=== PATIENT | female | born 1935 | race Caucasian/White ===

== ENCOUNTER 2018-06-09 18:49 | Inpatient (IN) | payer OTHER ==
[2018-06-09 20:45] VITALS: BMI 27.3
[2018-06-09 21:12] LABS: Absolute Lymphocytes (CBC) 1.5 K/uL (0.7-4.9); Absolute Monocytes 0.6 K/uL (0.1-1.3); Absolute Neutrophil 4.7 K/uL (1.8-8.0); Basophils % 0.7 % (0-1.3); Eosinophils % 3.8 % (0-4.4); Hematocrit 35.6 % (36.0-45.0); Lymphocytes % 21.1 % (15.3-44.8); MCH 31.7 pg (27.0-35.0); MCV 92.9 fL (80-100); MPV 9.6 fL (7.6-11.3); RBC Red Blood Cell Count 3.83 M/uL (3.86-4.86)
[2018-06-09 21:19] LABS: Protime INR 0.98
[2018-06-09 21:39] LABS: Albumin 3.3 g/dL (3.4-5.0); Bilirubin Total 0.2 mg/dL (0.2-1.0); CKMB Creatine Kinase MB 2.7 ng/mL (0.3-3.6); Magnesium 2.3 mg/dL (1.8-2.4); Protein, Total 6.6 g/dL (6.4-8.2)
[2018-06-09] MEDS: ENOXAPARIN 80 MG/0.8 ML SQ SCH (22:31)
[2018-06-09] MEDS: clonazePAM 1 MG TAB PO SCH (22:32)
[2018-06-09] MEDS: SOTALOL HCL 80 MG TAB PO SCH (22:32)
[2018-06-09 23:16] LABS: Urine Appearance CLEAR; Urine Bilirubin NEGATIVE (NEG); Urine Blood NEGATIVE (NEG); Urine Color YELLOW; Urine Glucose NEGATIVE (NEG); Urine Protein NEGATIVE (NEG); Urine Urobilinogen 0.2 mg/dL (0.2-1.0)
[2018-06-09 23:33] LABS: Urine Bacteria <20 /HPF (<20); Urine RBC NONE SEEN /HPF (NONE SEEN)
[2018-06-09 23:34] LABS: Urine Culture Reflex Order NOT NEEDED
--- NOTE | 2018-06-10 06:37 | HP ---
Date of Admission: 06/09/2018 Chief Complaint: Not feeling good. History Of Present Illness: An 83-year-old female patient who came into see me today with concerns a bout her blood pressure. The patient says for last 10 days or so she has not been feeling good at al l and she was concerned about her blood pressure if it was running high or low, she did know. She sargent d somebody checked her blood pressure at one of the [facility] care facility and her systolic blood pre ssure was recorded as 205. This was almost a week ago or so and then she was told that particular bl ood pressure machine was not working well. After that, she says that she has used different machines and her blood pressure was sometime running low with systolic blood pressure around 90 or so and gosia etime it was high, so she did not know what to do. She came in today to see me. She has been feelin g weak lately in last week to 10 days. Denies any chest pain. No shortness of breath. No palpitati on. No nausea, vomiting, fever, chills. After I evaluated her, I detected her heart rate was irregu larly irregular and EKG was done which revealed presence of atrial fibrillation with rapid ventricula r rate and decision was made to admit her to hospital for further evaluation and management of this p roblem. The patient does not have any prior history of atrial fibrillation. Allergies: NO KNOWN ALLERGIES. Medications: Caltrate plus D 1 tablet 2 times a day, carvedilol 25 mg 2 times a day, Centrum Silver 1 tablet daily, clonazepam 1 mg b.i.d., duloxetine 30 mg daily, gabapentin 100 mg 3 times a day, hydr alazine 10 mg p.o. b.i.d., Boniva 150 mg once a month, losartan 100 mg daily, oxybutynin ER 10 mg lu ly, potassium [id number] 99 mg p.o. daily. Review of Systems: Cardiovascular: As mentioned above. All other systems reviewed and negative. Social History: Negative for smoking, alcohol use. Family History: Significant for prostate cancer, colon cancer, breast cancer, COPD. Past Surgical History: Elbow surgery, hysterectomy, and bladder surgery. Past Medical History: Significant for hypertension, overactive bladder, depression, hyperlipidemia, and generalized anxiety disorder. Physical Examination: Vital Signs: Height 5 feet and 5 inches, weight 164 pounds. Temperature 97.9, pulse 103, respirator y rate 16, blood pressure 148/114, oxygen saturation 96%. General: Awake, alert, oriented, not in distress. HEENT: Head atraumatic, normocephalic. Conjunctivae nonerythematous. Sclerae white. Mouth, no thr ush or edema noted. Ears/Nose, no mass, lesion, discharge noted. Neck: Supple. No JVD, lymph nodes, bruit, thyromegaly noted. Lungs: Bilateral good equal air entry. Clear to auscultation. No rhonchi. No rales. Heart: Sounds normal. Heart rhythm is irregularly irregular. Abdomen: Soft, bowel sounds normal. No guarding, rigidity, tenderness, mass, hepatosplenomegaly, dis tention, or bruit noted. Extremities: No leg edema. No calf tenderness. Skin: No rash, ulcer, cellulitis. Lymphatics: No lymph node enlargement in neck, supraclavicular, infraclavicular region. Neuro: No focal neurological deficit. Chest: Unremarkable. External Genitalia: Deferred. Rectal: Deferred. Laboratory Data: White count 7.2, hemoglobin 12.1, platelets 210. PT/PTT normal. Chemistry is pend ing. Cardiac enzymes pending. Impression: 1.Atrial fibrillation with rapid ventricular rate. 2.Hypertension. 3.Hyperlipidemia. 4.Generalized anxiety disorder. 5.Overactive bladder. 6.Depression. Plan: Admit the patient to hospital for further evaluation and management of this problem. The marcellus ent is appropriate for inpatient and is expected to spend 2 midnights in hospital. We will admit her to telemetry. Continue home medication per order for hypertension, overactive bladder, depression a nd anxiety problem. We will not give her carvedilol that she normally takes at home and instead of t hat we will start her on sotalol 80 mg p.o. twice a day. We will also start her on Lovenox 1 mg/kg s ubcutaneous injection every 12 hours in view of atrial fibrillation. Details and plan of treatment d iscussed with her. We will get echocardiogram and consult Cardiology. I did discuss details with he r motor block mechanic, Dr. Wang. I will see her in the morning for followup. CITLALY/MODL Voice ID: [id number]
--- NOTE | 2018-06-10 07:05 | RAD REPORT ---
EXAM DESCRIPTION: RAD - Chest Pa And Lat (2 Views) - 06/09/2018 9:21 pm CLINICAL HISTORY: Atrial fibrillation COMPARISON: Portable chest March 2017 TECHNIQUE: PA and lateral views of the chest were obtained. FINDINGS: The lungs are clear. Interstitial markings are similar to comparison. Minimal biapical pl eural thickening changes are present. Heart size and lung base markings are accentuated slightly by a more shallow inspiration. No pleural effusion or pneumothorax seen. No acute bony finding noted. N o aortic abnormality. IMPRESSION: No acute cardiopulmonary process. As detailed above, no significant change from compari son.
[2018-06-10] MEDS: SOTALOL HCL 80 MG TAB PO SCH ×2 (08:47→20:30)
[2018-06-10] MEDS: HYDRALAZINE HCL 10 MG TABLET PO SCH ×2 (08:47→20:31)
[2018-06-10] MEDS: ENOXAPARIN 80 MG/0.8 ML SQ SCH ×2 (08:47→20:31)
[2018-06-10] MEDS: clonazePAM 1 MG TAB PO SCH ×2 (08:47→20:30)
[2018-06-10] MEDS: DULOXETINE 30 MG CAP PO SCH (08:47)
[2018-06-10] MEDS: OXYBUTYNIN ER 5 MG TAB PO SCH (08:47)
[2018-06-10] MEDS: LOSARTAN POTASSIUM 50 MG TABLET PO SCH (08:47)
--- NOTE | 2018-06-10 10:29 | EKG ---
Test Date: 2018-06-10 Test Time: 03:38:07 [place]rap [place]er: RT-V MEASUREMENT RESULTS: Intervals: Rate: 67 ME: 202 QRSD: 116 QT: 436 QTc: 460 [place]: P: 64 ME: 202 QRS: -26 T: 11 INTERPRETIVE STATEMENTS: Normal sinus rhythm Incomplete left bundle branch block Borderline ECG Compared to ECG 09/21/2015 09:50:58 Left bundle-branch block now present Electronically Signed On 06-10-18 10:28:05 CDT by Daniele Cassidy
--- NOTE | 2018-06-10 11:52 | ECHO ---
HEIGHT: 5 ft 5 in WEIGHT: 164 lb 6.4 oz DATE OF STUDY: 06/10/[address]: Maxi Duval MD 2-DIMENSIONAL: YES M.MODE: YES DOPPLER: YES COLOR FLOW: YES TDS: NO PORTABLE: NO DEFINITY: NO BUBBLE STUDY: NO DIAGNOSIS: ATRIAL FIBRILLATION CARDIAC HISTORY: CATHERIZATION: NO SURGERY: NO PROSTHETIC VALVE: NO PACEMAKER: NO MEASUREMENTS (cm) DIASTOLIC (NORMALS) SYSTOLIC (NORMALS) IVSd 1.1 (0.6-1.2) LA Diam 3.6 (1.9-4.0) LVEF 69% LVIDd 4.7 (3.5-5.7) LVIDs 2.9 (2.0-3.5) %FS 39% LVPWd 1.1 (0.6-1.2) Ao Diam 3.1 (2.0-3.7) 2 DIMENSIONAL ASSESSMENT: RIGHT ATRIUM: NORMAL LEFT ATRIUM: NORMAL RIGHT VENTRICLE: NORMAL LEFT VENTRICLE: NORMAL TRICUSPID VALVE: NORMAL MITRAL VALVE: NORMAL PULMONIC VALVE: NORMAL AORTIC VALVE: NORMAL PERICARDIAL EFFUSION: NONE AORTIC ROOT: NORMAL LEFT VENTRICULAR WALL MOTION: NORMAL DOPPLER/COLOR FLOW: MILD TRICUSPID REGURGITATION. COMMENTS: MILD TRICUSPID REGURGITATION. NORMAL RIGHT VENTRICULAR SYSTOLIC PRESSURE. NORMAL LEFT ATRIAL SIZE, NO THROMBUS. NORMAL LEFT VENTRICULAR SIZE AND FUNCTION. TECHNOLOGIST: Doreen RIVAS
--- NOTE | 2018-06-10 15:27 | CON ---
Reason For Consult: Atrial fibrillation. History Of Present Illness: Ms. Mcghee was aware of an irregular heartbeat for several weeks. She saw Dr. Duval yesterday. She was in AFib. Since being in the hospital, she has re-establised sinus r hythm. She has no previous history of heart disease. She takes blood pressure medicines. Never had myocardial infarction, stroke, or diabetes. Allergies: SHE HAS NO KNOWN ALLERGIES. Social History: Does not use tobacco or illegal drugs. Not having chest pain, just a little bit of irregularity. Physical Examination: General: She is 5 feet 5 inches, 164 pounds. Alert, oriented, pleasant, not in distress. Lungs: Clear. Cardiac: Normal. Abdomen: Soft. Extremities: Normal.. I would recommend that the patient have an outpatient workup. She should probably do a stress test a nd she should be on Betapace and one of the direct anticoagulants such as Xarelto. We could stop the Lovenox. We can let her go home today and see her as an outpatient. She is a regular patient of Dr Chance Wang in the past. ARAMIS/KANE Voice ID: [id number] Report ID: [id number]
--- NOTE | 2018-06-10 22:30 | PN ---
Date of Progress Note: 06/10/2018 Subjective: The patient was seen this morning for followup, lying in bed, not in any distress. No chest pain or shortness of breath overnight. Objective: Vital Signs: Reviewed. HEENT: Unremarkable. Lungs: Clear to auscultation. Heart: Heart sounds normal. Abdomen: Soft. Bowel sounds normal. No guarding, rigidity, tenderness, or distention. Extremities: No leg edema. Laboratory Data: Yesterday's chemistry profile; sodium 144, potassium 4, chloride 110, bicarb 29, BUN 20, creatinine 0.80, glucose 96. Liver function tests are unremarkable. TSH 1.0. Echocardiogram done today shows ejection fraction of 69%, mild tricuspid regurgitation. Impression: 1. Atrial fibrillation, paroxysmal, converted to sinus rhythm. 2. Hypertension. Plan: We will go ahead and continue sotalol and continue anticoagulant therapy. Monitor for any cardiac arrhythmia or any medication side effect on telemetry. Ambulation was encouraged. I will see her tomorrow for followup and we will plan to discharge her to go home tomorrow if her condition is stable. CITLALY/MODL Voice ID: [id number] Report ID: [id number] TRI
[2018-06-11 04:17] VITALS: O2SAT 95
[2018-06-11] MEDS: clonazePAM 1 MG TAB PO SCH (08:57)
[2018-06-11] MEDS: DULOXETINE 30 MG CAP PO SCH (08:57)
[2018-06-11] MEDS: SOTALOL HCL 80 MG TAB PO SCH (08:57)
[2018-06-11] MEDS: HYDRALAZINE HCL 10 MG TABLET PO SCH (08:57)
[2018-06-11] MEDS: OXYBUTYNIN ER 5 MG TAB PO SCH (08:58)
[2018-06-11] MEDS: LOSARTAN POTASSIUM 50 MG TABLET PO SCH (08:58)
[2018-06-11 09:14] VITALS: BP 169/90; TEMP 97.4
--- NOTE | 2018-06-12 01:27 | DS ---
Date of Discharge: 06/11/2018 Disposition: Discharged to go home. Physical Examination: HEENT: Unremarkable. Lungs: Clear to auscultation. Heart: Sounds normal. Abdomen: Soft. Bowel sounds normal. No guarding, rigidity, tenderness, or distention. Extremities: No leg edema. Discharge Medications And Instructions: 1.Continue all prior home medications except discontinue carvedilol. 2.Take sotalol 80 mg 2 times a day. 3.Xarelto 20 mg p.o. daily with evening meal. 4.Follow up at my office in 1 week and follow up with Dr. Wang in 2 weeks. Laboratory Data: White count 7.2, hemoglobin 12.1, platelets 210, sodium 144, potassium 4, chloride 110, bicarb 29, BUN 20, creatinine 0.80, glucose 96. Liver function tests unremarkable. Troponin le ss than 0.02. TSH 1. Echocardiogram shows normal ejection fraction, 69%. No evidence of left ventr icular thrombus. Hospital Course: An 83-year-old female patient, admitted to the hospital after she came into office with complaints of not feeling good. Please see dictated H and P for more information. The patient' s blood pressure has been fluctuating lately and she came in to see me. After she was evaluated at [facility] office, she was diagnosed as having atrial fibrillation with rapid ventricular rate. EKG done at office showed atrial fibrillation with heart rate anywhere from 115 to 120. She was hemodynamically stable. After she was evaluated, she was admitted to the hospital. Her blood work was unremarkable. She was started on sotalol 80 mg twice a day and Lovenox 1 mg/kg subcutaneous injection every 12 ho urs. She did convert to sinus rhythm with sotalol. She was on telemetry. She ambulated well. Tole rating diet very well. Cardiology consultation was requested and echocardiogram was unremarkable. [facility] patient was discharged to go home in stable condition. She was instructed about how to take the X arelto with evening meal. Patient upon discharge came to office, and written instructions about her medication changes were given to her and prescription was sent to her pharmacy. Final Diagnoses: 1.Atrial fibrillation, paroxysmal, converted to sinus rhythm with sotalol. 2.Hypertension. 3.Hyperlipidemia. 4.Generalized anxiety disorder. 5.Overactive bladder. 6.Depression. CITLALY/MODL Voice ID: [id number] Report ID: [id number]
== END 2018-06-11 09:23 | disposition home or self-care (01) | DRG 310 ==
LOC: 4TH 19:20
PROVIDERS: ADMIT Internal Medicine; ATTEND Internal Medicine
DX: I48.0 Paroxysmal atrial fibrillation (principal); I10 Essential (primary) hypertension; E78.5 Hyperlipidemia, unspecified; F41.1 Generalized anxiety disorder; N32.81 Overactive bladder; F32.9 Major depressive disorder, single episode, unspecified
CPT/HCPCS: 36415; 71046; 80053; 81001; 82550; 82553; 83735; 84443; 84484; 85025; 85610; 85730; 93005; 93306; J1650

== ENCOUNTER 2018-06-14 06:32 | Emergency (ER) | payer OTHER ==
--- NOTE | 2018-06-14 07:27 | RAD REPORT ---
EXAM DESCRIPTION: CT - Head C Spine Cap Wo Con - 06/14/2018 7:05 am CLINICAL HISTORY: Fall, head, neck, chest and abdomen pain. COMPARISON: Chest exam June 2016. TECHNIQUE: Axial [address] head images were obtained. Axial [address] cervical spine images were obtain ed with sagittal and coronal reconstruction images reviewed. Axial 5 mm images of the chest, abdomen and pelvis were obtained. All CT scans are performed using dose optimization technique as appropriate and may include automated exposure control or mA/KV adjustment according to patient size. FINDINGS: No intracranial hemorrhage, mass or edema. No midline shift or abnormal fluid collection. Mastoid air cells and paranasal sinuses are clear. No skull fracture. Moderate atrophy and chronic is chemic changes are present. Ventricular size is in proportion. Cervical bodies are normal in height. Anterior subluxation C3 on C4 and C4 on C5 present an secondary to facet degenerative change. Prominent C6-7 disc space narrowing with endplate spurring. Mild right foraminal encroachment at C2-3. Significant left foraminal encroachment C3-4 due to bony hypertrophy . Mild left foraminal encroachment at C5-6. There is mild bilateral foraminal encroachment at C6-7. N o fracture or acute bone finding.No other disc space narrowing.No prevertebral soft tissue thickening or paraspinal mass.Central canal detail is inherently limited on CT imaging. CT chest shows no pneumothorax, pulmonary contusion or pleural fluid collection. No mediastinal hem atoma and the aorta and pulmonary arteries are unremarkable. No chest will mass or abnormal axillary finding. No displaced rib fracture or other significant bony finding. CT abdomen and pelvis show no injury to solid abdominal viscera. Small low-density lesions in the zoë er are believed to be incidental cysts but are not fully assessed on a noncontrast study. Gallbladder and biliary tree are unremarkable. Gallstones can be occult on CT imaging. No evidence for an acute gallbladder process. Mild dilatation of the right pelvis and proximal ureter present without evidence for an obstructing stone. An acute process is doubtful given the trauma history. An exophytic 15 mil limeter low-density mass right kidney is probably a cyst. No bowel injury or significant finding. No free air, free fluid or abnormal stranding. No hernia, mass or bulky lymphadenopathy. No urinary lenka dder abnormality. Patient has prominent disc and bony degenerative change. The 40% compression fracture deformity L1 is a stable finding. An acute or pathologic bone process is not suspected. IMPRESSION: Atrophy and chronic ischemic changes are present with no acute intracranial finding. Cervical spine degenerative changes are present as detailed. No acute finding. Central canal detail i s inherently limited. No acute CT chest finding. Multiple old rib fractures noted on the right. No significant CT Abdomen and Pelvis finding. Old L1 compression fracture. Degenerative changes are scattered in the thoracic and lumbar spine. Overall exam sensitivity is limited in the absence of contrast. No significant acute finding suspecte d.
[2018-06-14] MEDS ORDERED: NA CHLORIDE 0.9% 1,000 ML ONE (07:44)
[2018-06-14 08:01] LABS: Absolute Lymphocytes (CBC) 1.3 K/uL (0.7-4.9); Absolute Monocytes 0.6 K/uL (0.1-1.3); Absolute Neutrophil 5.2 K/uL (1.8-8.0); Basophils % 0.7 % (0-1.3); Eosinophils % 3.7 % (0-4.4); Hematocrit 38.1 % (36.0-45.0); Lymphocytes % 17.5 % (15.3-44.8); MCH 31.3 pg (27.0-35.0); MCV 93.2 fL (80-100); MPV 9.6 fL (7.6-11.3); Monocytes % 7.6 % (3.3-12.3); RBC Red Blood Cell Count 4.09 M/uL (3.86-4.86)
[2018-06-14 08:10] LABS: Protime INR 2.08
[2018-06-14 08:14] LABS: Potassium 3.8 mmol/L (3.5-5.1)
[2018-06-14 08:20] LABS: ALT/SGPT 37 U/L (12-78); AST/SGOT 27 U/L (15-37); Albumin 3.5 g/dL (3.4-5.0); Alkaline Phosphatase 63 U/L (45-117); Bilirubin Direct < 0.1 mg/dL (0-0.2); Bilirubin Total 0.5 mg/dL (0.2-1.0); CKMB Creatine Kinase MB 2.3 ng/mL (0.3-3.6); Creatine Phosphokinase 66 U/L (26-192); Magnesium 2.2 mg/dL (1.8-2.4); NT PRO-BNP 389 pg/mL (<450)
[2018-06-14 08:36] LABS: Urine Blood NEGATIVE (NEG); Urine Glucose NEGATIVE (NEG); Urine Protein NEGATIVE (NEG); Urine Specific Gravity 1.015 (1.005-1.030); Urine pH 6.5 (5.0-7.0)
--- NOTE | 2018-06-14 08:46 | EDPHYS ---
Physician Documentation [facility] Name: Juanita Mcghee Age: 83 yrs Sex: Female : 1935 Arrival Date: 06/14/2018 Time: 06:36 Bed 5 Private MD: Yvette Duval C ED Physician David Soto HPI: 06/14 06:40 This 83 yrs old Female presents to ER via Unassigned with complaints of Fall kav Injury. 06:42 Details of fall: The patient fell from a supine position, out of bed, and struck wood kav erik. Onset: The symptoms/episode began/occurred acutely, just prior to arrival. Associated injuries: The patient sustained injury to the head, tenderness. Severity of symptoms: At their worst the symptoms were mild, just prior to arrival. The patient has not experienced similar symptoms in the past. The patient has been recently seen by a physician: Dr. Duval. Patient reports that she was recently initiated on Xarelto and Sotalol for Atrial Fibrillation. 07:25 No reported LOC. kav Historical: - Allergies: 06:49 No Known Allergies; fc - Home Meds: 06:49 Centrum Silver 0.4-300-250 mg-mcg-mcg oral tab daily [Active]; gabapentin 100 mg oral fc cap 3 times per day [Active]; Caltrate 600 + D 600 mg (1,500 mg)-800 unit oral chew twice a day [Active]; ibandronate 150 mg oral tab 1 tab once moly [Active]; oxybutynin chloride 10 mg Oral tr24 2 tabs in am and 1 tab at night [Active]; clonazepam 1 mg Oral tab 1 tab 2 times per day [Active]; Potassium Chloride Oral 2 times per day [Active]; hydralazine 10 mg Oral tab 1 tab 2 times per day [Active]; losartan 100 mg oral tab 1 tab once daily [Active]; duloxetine 30 mg oral cpDR 1 cap once daily [Active]; sotalol 80 mg Oral tab 1 tab 2 times per day [Active]; Xarelto 20 mg oral tab 1 tab once daily [Active]; - PMHx: 06:49 Anxiety; Hypertension; neuropathy; Atrial Fib; fc - Immunization history: Last tetanus immunization: - up to date. - Social history:: Smoking status: Patient/guardian denies using tobacco. - Ebola Screening: : Patient negative for fever greater than or equal to 101.5 degrees Fahrenheit, and additional compatible Ebola Virus Disease symptoms Patient denies exposure to infectious person Patient denies travel to an Ebola-affected area in the 21 days before illness onset. - Family history:: not pertinent. - Hospitalizations: : No recent hospitalization is reported. ROS: 07:23 Constitutional: Negative for fever, chills, and weight loss, Eyes: Negative for injury, kav pain, redness, and discharge, ENT: Negative for injury, pain, and discharge, Neck: Negative for injury, pain, and swelling, Cardiovascular: Negative for chest pain, palpitations, and edema, Respiratory: Negative for shortness of breath, cough, wheezing, and pleuritic chest pain, Abdomen/GI: Negative for abdominal pain, nausea, vomiting, diarrhea, and constipation, Back: Negative for injury and pain, : Negative for injury, bleeding, discharge, and swelling, MS/Extremity: Negative for injury and deformity, Skin: Negative for injury, rash, and discoloration, Neuro: Negative for headache, weakness, numbness, tingling, and seizure, Psych: Negative for depression, anxiety, suicide ideation, homicidal ideation, and hallucinations, Allergy/Immunology: Negative for hives, rash, and allergies, Endocrine: Negative for neck swelling, polydipsia, polyuria, polyphagia, and marked weight changes, Hematologic/Lymphatic: Negative for swollen nodes, abnormal bleeding, and unusual bruising. Exam: 07:23 Constitutional: This is a well developed, well nourished patient who is awake, alert, kav and in no acute distress. Eyes: Pupils equal round and reactive to light, extra-ocular motions intact. Lids and lashes normal. Conjunctiva and sclera are non-icteric and not injected. Cornea within normal limits. Periorbital areas with no swelling, redness, or edema. ENT: Nares patent. No nasal discharge, no septal abnormalities noted. Tympanic membranes are normal and external auditory canals are clear. Oropharynx with no redness, swelling, or masses, exudates, or evidence of obstruction, uvula midline. Mucous membranes moist. Neck: Trachea midline, no thyromegaly or masses palpated, and no cervical lymphadenopathy. Supple, full range of motion without nuchal rigidity, or vertebral point tenderness. No Meningismus. Chest/axilla: Normal chest wall appearance and motion. Nontender with no deformity. No lesions are appreciated. Cardiovascular: Regular rate and rhythm with a normal S1 and S2. No gallops, murmurs, or rubs. Normal PMI, no JVD. No pulse deficits. Respiratory: Lungs have equal breath sounds bilaterally, clear to auscultation and percussion. No rales, rhonchi or wheezes noted. No increased work of breathing, no retractions or nasal flaring. Abdomen/GI: Soft, non-tender, with normal bowel sounds. No distension or tympany. No guarding or rebound. No evidence of tenderness throughout. Back: No spinal tenderness. No costovertebral tenderness. Full range of motion. Skin: Warm, dry with normal turgor. Normal color with no rashes, no lesions, and no evidence of cellulitis. MS/ Extremity: Pulses equal, no cyanosis. Neurovascular intact. Full, normal range of motion. Psych: Awake, alert, with orientation to person, place and time. Behavior, mood, and affect are within normal limits. 07:23 Head/face: Noted is tenderness, that is mild, of the left side of the back of head and right side of the back of head. 08:24 ECG was reviewed by the Attending Physician. [facility] Vital Signs: 06:30 BP 166 / 96; Pulse 62; Resp 20; Temp 98.1(O); Pulse Ox 98% on R/A; Weight 72.57 kg (R); fc Height 5 ft. 5 in. (165.10 cm) (R); Pain 0/10; 07:00 BP 153 / 92; Pulse 66; Resp 16 S; Pulse Ox 99% on R/A; jl7 07:45 BP 167 / 77; Pulse 63; Resp 16; Pulse Ox 99% on R/A; jl7 08:23 BP 166 / 90; Pulse 62; Resp 18; Pulse Ox 99% ; Pain 0/10; jl7 09:15 BP 169 / 90; Pulse 62; Resp 16; Pulse Ox 97% on R/A; jl7 06:30 Body Mass Index 26.63 (72.57 kg, 165.10 cm) NIH Stroke Scale Scores: 08:46 NIHSS Score: 0 ka [place] Coma Score: 06:30 Eye Response: spontaneous(4). Verbal Response: oriented(5). Motor Response: obeys fc commands(6). Total: 15. 08:46 Eye Response: spontaneous(4). Verbal Response: oriented(5). Motor Response: obeys kav commands(6). Total: 15. Trauma Score (Adult): 06:30 Eye Response: spontaneous(1); Verbal Response: oriented(1); Motor Response: obeys fc commands(2); Systolic BP: > 89 mm Hg(4); Respiratory Rate: 10 to 29 per min(4); Susana Score: 15; Trauma Score: 12 07:00 Eye Response: spontaneous(1); Verbal Response: oriented(1); Motor Response: obeys jl7 commands(2); Systolic BP: > 89 mm Hg(4); Respiratory Rate: 10 to 29 per min(4); Susana Score: 15; Trauma Score: 12 07:45 Eye Response: spontaneous(1); Verbal Response: oriented(1); Motor Response: obeys jl7 commands(2); Systolic BP: > 89 mm Hg(4); Respiratory Rate: 10 to 29 per min(4); [place] Score: 15; Trauma Score: 12 08:23 Eye Response: spontaneous(1); Verbal Response: oriented(1); Motor Response: obeys jl7 commands(2); Systolic BP: > 89 mm Hg(4); Respiratory Rate: 10 to 29 per min(4); [place] Score: 15; Trauma Score: 12 09:15 Eye Response: spontaneous(1); Verbal Response: oriented(1); Motor Response: obeys jl7 commands(2); Systolic BP: > 89 mm Hg(4); Respiratory Rate: 10 to 29 per min(4); Susana Score: 15; Trauma Score: 12 MDM: 06:36 Medical screening is not applicable. [facility] 08:01 Data reviewed: vital signs, nurses notes, radiologic studies, CT scan. ED course: [facility] awaiting urine results and lab results. 06/14 06:38 Order name: Basic Metabolic Panel; Complete Time: 08:19 [facility] 06/14 06:38 Order name: CBC with Diff; Complete Time: 08:19 [facility] 06/14 06:38 Order name: Creatinine for Radiology; Complete Time: 08:44 [facility] 06/14 06:38 Order name: Type And Screen; Complete Time: 09:24 kav 06/14 06:41 Order name: Ckmb; Complete Time: 08:44 v 06/14 06:41 Order name: CPK; Complete Time: 08:44 v 06/14 06:38 Order name: CT Traumagram (Head C Spine CAP wo con); Complete Time: 07:30 kav 06/14 06:41 Order name: LFT's; Complete Time: 08:44 v 06/14 06:41 Order name: Magnesium; Complete Time: 08:44 v 06/14 06:41 Order name: NT PRO-BNP; Complete Time: 08:44 kav 06/14 06:41 Order name: PT-INR; Complete Time: 08:19 v 06/14 06:41 Order name: Ptt, Activated; Complete Time: 08:19 v 06/14 06:41 Order name: Troponin (emerg Dept Use Only); Complete Time: 08:19 v 06/14 08:22 Order name: Urine Dipstick--Ancillary (enter results); Complete Time: 08:44 eb 06/14 06:38 Order name: Labs collected and sent; Complete Time: 08:14 kav 06/14 06:38 Order name: Urine Dipstick-Ancillary (obtain specimen); Complete Time: 08:20 v 06/14 06:41 Order name: EKG; Complete Time: 06:42 06/14 06:41 Order name: Cardiac monitoring; Complete Time: 08:20 kav 06/14 06:41 Order name: EKG - Nurse/Tech; Complete Time: 08:20 v 06/14 06:41 Order name: IV Saline Lock; Complete Time: 08:13 06/14 06:41 Order name: O2 Per Protocol; Complete Time: 08:13 v 06/14 06:41 Order name: O2 Sat Monitoring; Complete Time: 08:13 kav Administered Medications: 08:14 Drug: NS 0.9% 1000 ml Route: IV; Rate: 75 ml/hr; Site: right antecubital; jl7 09:34 Follow up: IV Status: IV converted to saline lock jl7 Disposition: 06/14/18 08:45 Discharged to Home. Impression: fall from supine position. - Condition is Stable. - Discharge Instructions: Fall Prevention in the Home, [id number], Facial or Scalp Contusion, [id number]. - Medication Reconciliation Form, Thank You Letter form. - Follow up: Yvette Duval; When: 2 - 3 days; Reason: Recheck today's complaints, Continuance of care, Re-evaluation by your physician. - Problem is new. - Symptoms have improved. - Notes: Please f/u with Dr. Duval in 2-3 days for post-ED evaluation and treatment. 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 Level of Consciousness (LOC) - 0(Alert) 1b. Level of Consciousness (LOC) (Year \T\ Age) - 0(Both) 1c. LOC Commands (Open \T\ Closes Eyes/Chair Lift Operator) - 0(Both) 2. Best Gaze (Lateral Gaze Paresis) - 0(Normal) 3. Visual Field Loss - 0(No visual loss) 4. Facial Palsy - 0(Normal) 5a. Left Arm: Motor (10-second hold) - 0(No drift) 5b. Right Arm: Motor (10-second hold) - 0(No drift) 6a. Left Leg: Motor (5-second hold - always test supine) - 0(No drift) 6b. Right Leg: Motor (5-second hold - always test supine) - 0(No drift) 7. Limb Ataxia (finger/nose \T\ heel/staton - test with eyes open) - 0(Absent) 8. Sensory Loss (pinprick arms/legs/face) - 0(Normal) 9. Best Language: Aphasia (description/naming/reading) - 0(No aphasia) 10. Dysarthria (speech clarity - read or repeat words) - 0(Normal) 11. Extinction and Inattention (visual/tactile/auditory/spatial/personal) - 0(No abnormality) Initials: afsaneh Addendum: 06/15/2018 10:50 Co-signature as Attending Physician, David Soto MD I agree with the [facility] assessment and plan of care. Signatures: Dispatcher [employer] David Perez MD MD cha Vern, Katherine, TUBE BUILDING MACHINE OPERATOR TUBE BUILDING MACHINE OPERATOR Azalia Matthews RN RN fc Shabnam Arias RN RN jl7 Corrections: (The following items were deleted from the chart) 06/14 09:36 08:45 06/14/2018 08:45 Discharged to Home. Impression: fall from supine jl7 position. Condition is Stable. Forms are Medication Reconciliation Form, Thank You Letter, Antibiotic Education, Prescription Opioid Use. Follow up: A Duval; When: 2 - 3 days; Reason: Recheck today's complaints, Continuance of care, Re-evaluation by your physician. Problem is new. Symptoms have improved. kav
--- NOTE | 2018-06-14 08:46 | ER ---
Nurse's Notes [facility] Name: Juanita Mcghee Age: 83 yrs Sex: Female : 1935 Arrival Date: 06/14/2018 Time: 06:36 Bed 5 Private MD: Yvette Duval C Diagnosis: fall from supine position Presentation: 06/14 06:30 Presenting complaint: Patient states: that she was getting up and fell, hitting head on fc the closet door. Denies any LOC. No open wounds or lacerations. Care prior to arrival: Glucose check: 81. Mechanism of Injury: Fall from standing position. Trauma event details: Injury occurred in the [facility], Injury occurred: at home. Injury occurred: June 14, 2018 Injury occurred at: 05:30. 06:30 Acuity: JANNETTE 2 06:30 Method Of Arrival: EMS: [facility] 06:42 Transition of care: patient was not received from another setting of care. Onset of fc symptoms was June 14, 2018 at 05:30. Risk Assessment: Do you want to hurt yourself or someone else? Patient reports no desire to harm self or others. Initial Sepsis Screen: Does the patient meet any 2 criteria? No. Patient's initial sepsis screen is negative. Does the patient have a suspected source of infection? No. Patient's initial sepsis screen is negative. Trauma Activation: Alert Physician: ED Physician; Name: Neli; Notified At: 06:28; Arrived At: 06:28 Physician: General Surgeon; Name: ; Notified At: 06:28; Arrived At: Physician: Radiology; Name: Stacey; Notified At: 06:28; Arrived At: 06:29 Physician: Respiratory; Name: ; Notified At: 06:28; Arrived At: Physician: Lab; Name: ; Notified At: 06:28; Arrived At: Historical: - Allergies: 06:49 No Known Allergies; fc - Home Meds: 06:49 Centrum Silver 0.4-300-250 mg-mcg-mcg oral tab daily [Active]; gabapentin 100 mg oral fc cap 3 times per day [Active]; Caltrate 600 + D 600 mg (1,500 mg)-800 unit oral chew twice a day [Active]; ibandronate 150 mg oral tab 1 tab once moly [Active]; oxybutynin chloride 10 mg Oral tr24 2 tabs in am and 1 tab at night [Active]; clonazepam 1 mg Oral tab 1 tab 2 times per day [Active]; Potassium Chloride Oral 2 times per day [Active]; hydralazine 10 mg Oral tab 1 tab 2 times per day [Active]; losartan 100 mg oral tab 1 tab once daily [Active]; duloxetine 30 mg oral cpDR 1 cap once daily [Active]; sotalol 80 mg Oral tab 1 tab 2 times per day [Active]; Xarelto 20 mg oral tab 1 tab once daily [Active]; - PMHx: 06:49 Anxiety; Hypertension; neuropathy; Atrial Fib; fc - Immunization history: Last tetanus immunization: - up to date. - Social history:: Smoking status: Patient/guardian denies using tobacco. - Ebola Screening: : Patient negative for fever greater than or equal to 101.5 degrees Fahrenheit, and additional compatible Ebola Virus Disease symptoms Patient denies exposure to infectious person Patient denies travel to an Ebola-affected area in the 21 days before illness onset. - Family history:: not pertinent. - Hospitalizations: : No recent hospitalization is reported. Screenin:30 Abuse screen: Denies threats or abuse. Tuberculosis screening: No symptoms or risk fc factors identified. 06:43 Nutritional screening: No deficits noted. Fall Risk None identified. fc Primary Survey: 06:40 A: Airway: patent. Breathing/Chest: Respiratory pattern: regular, Respiratory effort: tl2 spontaneous, unlabored, Breath sounds: clear, bilaterally. Chest inspection: symmetrical rise and fall of the chest. Circulation: Heart tones present. Skin color: pink, Skin temperature: warm, dry. Disability Alert. 07:00 Reassessment Airway Airway Patent Breathing/Chest Respiratory pattern Regular jl7 Respiratory effort Spontaneous Unlabored Breath sounds Clear Chest inspection Symmetrical Circulation Heart tones Present Color [place] Temperature Warm Disability Alert. Secondary Survey: 06:40 HEENT: No deficits noted. Gastrointestinal: No deficits noted. : No deficits noted. tl2 Musculoskeletal: No deficits noted. Assessment: 07:00 General: Appears in no apparent distress. uncomfortable, Behavior is calm, cooperative, jl7 appropriate for age. Pain: Denies pain. Neuro: Level of Consciousness is awake, alert, obeys commands, Oriented to person, place, time, situation. EENT: No signs and/or symptoms were reported regarding the EENT system. Cardiovascular: Heart tones present. Respiratory: Airway is patent Respiratory effort is even, unlabored, Respiratory pattern is regular, symmetrical, Breath sounds are clear bilaterally. GI: No signs and/or symptoms were reported involving the gastrointestinal system. : No signs and/or symptoms were reported regarding the genitourinary system. Derm: Skin is pink, warm \T\ dry. Musculoskeletal: No signs and/or symptoms reported regarding the musculoskeletal system. 08:00 Reassessment: No changes from previously documented assessment. Patient and/or family jl7 updated on plan of care and expected duration. Pain level reassessed. Patient is alert, oriented x 3, equal unlabored respirations, skin warm/dry/pink. 09:00 Reassessment: No changes from previously documented assessment. Patient and/or family jl7 updated on plan of care and expected duration. Pain level reassessed. Patient is alert, oriented x 3, equal unlabored respirations, skin warm/dry/pink. Vital Signs: 06:30 BP 166 / 96; Pulse 62; Resp 20; Temp 98.1(O); Pulse Ox 98% on R/A; Weight 72.57 kg (R); fc Height 5 ft. 5 in. (165.10 cm) (R); Pain 0/10; 07:00 BP 153 / 92; Pulse 66; Resp 16 S; Pulse Ox 99% on R/A; jl7 07:45 BP 167 / 77; Pulse 63; Resp 16; Pulse Ox 99% on R/A; jl7 08:23 BP 166 / 90; Pulse 62; Resp 18; Pulse Ox 99% ; Pain 0/10; jl7 09:15 BP 169 / 90; Pulse 62; Resp 16; Pulse Ox 97% on R/A; jl7 06:30 Body Mass Index 26.63 (72.57 kg, 165.10 cm) Susana Coma Score: 06:30 Eye Response: spontaneous(4). Verbal Response: oriented(5). Motor Response: obeys fc commands(6). Total: 15. 08:46 Eye Response: spontaneous(4). Verbal Response: oriented(5). Motor Response: obeys kav commands(6). Total: 15. Trauma Score (Adult): 06:30 Eye Response: spontaneous(1); Verbal Response: oriented(1); Motor Response: obeys fc commands(2); Systolic BP: > 89 mm Hg(4); Respiratory Rate: 10 to 29 per min(4); [place] Score: 15; Trauma Score: 12 07:00 Eye Response: spontaneous(1); Verbal Response: oriented(1); Motor Response: obeys jl7 commands(2); Systolic BP: > 89 mm Hg(4); Respiratory Rate: 10 to 29 per min(4); [place] Score: 15; Trauma Score: 12 07:45 Eye Response: spontaneous(1); Verbal Response: oriented(1); Motor Response: obeys jl7 commands(2); Systolic BP: > 89 mm Hg(4); Respiratory Rate: 10 to 29 per min(4); [place] Score: 15; Trauma Score: 12 08:23 Eye Response: spontaneous(1); Verbal Response: oriented(1); Motor Response: obeys jl7 commands(2); Systolic BP: > 89 mm Hg(4); Respiratory Rate: 10 to 29 per min(4); Susana Score: 15; Trauma Score: 12 09:15 Eye Response: spontaneous(1); Verbal Response: oriented(1); Motor Response: obeys jl7 commands(2); Systolic BP: > 89 mm Hg(4); Respiratory Rate: 10 to 29 per min(4); Susana Score: 15; Trauma Score: 12 NIH Stroke Scale Scores: 08:46 NIHSS Score: 0 kav ED Course: 06:30 Patient has correct armband on for positive identification. Bed in low position. Call light in reach. Side rails up X2. 06:30 Arm band placed on Patient placed in an exam room, on a stretcher. fc 06:36 Patient arrived in ED. fc 06:36 Lee[facility] Arcos FNP is [facility] kav 06:36 David Soto MD is Attending Physician. kav 06:36 Yvette Duval MD is Private Physician. fc 06:41 Triage completed. fc 06:[address] via stretcher. kw1 06:43 Patient maintains SpO2 saturation greater than 95% on room air. fc 07:00 Thermoregulation: warm blanket given to patient. jl7 07:05 CT Traumagram (Head C Spine CAP wo con) In Process Unspecified. EDMS 07:31 Shabanm Arias RN is Primary Nurse. jl7 07:56 Initial lab(s) drawn, by me, sent to lab. T\T\S collected, blood band applied to patient. em1 Inserted saline lock: 20 gauge in right antecubital area, using aseptic technique. Blood collected. Missed attempt(s): 20 gauge in right antecubital area. Bleeding controlled, band aid applied, catheter tip intact. 08:29 EKG done, by ED staff, reviewed by Leeanne RICH. em1 08:45 Yvette Duval MD is Referral Physician. kav 09:15 No provider procedures requiring assistance completed. IV discontinued, intact, jl7 bleeding controlled, No redness/swelling at site. Pressure dressing applied. Administered Medications: 08:14 Drug: NS 0.9% 1000 ml Route: IV; Rate: 75 ml/hr; Site: right antecubital; jl7 09:34 Follow up: IV Status: IV converted to saline lock jl7 Intake: 09:35 IV: 100ml; Total: 100ml. jl7 Output: 09:35 Urine: 250ml; Total: 250ml. jl7 Outcome: 08:45 Discharge ordered by . kav 09:15 Discharged to home ambulatory. jl7 09:15 Condition: stable 09:15 Discharge instructions given to patient, Instructed on discharge instructions, follow up and referral plans. Demonstrated understanding of instructions, follow-up care. 09:35 Patient's length of stay was not longer than 2 hours. jl7 09:36 Patient left the ED. jl7 NIH Stroke Scale - NIH Stroke Score Date: 06/14/2018 Time: 08:46 Total Score = 0 1a. Level of Consciousness (LOC) - 0(Alert) 1b. Level of Consciousness (LOC) (Year \T\ Age) - 0(Both) 1c. LOC Commands (Open \T\ Closes Eyes/Forklift Technician) - 0(Both) 2. Best Gaze (Lateral Gaze Paresis) - 0(Normal) 3. Visual Field Loss - 0(No visual loss) 4. Facial Palsy - 0(Normal) 5a. Left Arm: Motor (10-second hold) - 0(No drift) 5b. Right Arm: Motor (10-second hold) - 0(No drift) 6a. Left Leg: Motor (5-second hold - always test supine) - 0(No drift) 6b. Right Leg: Motor (5-second hold - always test supine) - 0(No drift) 7. Limb Ataxia (finger/nose \T\ heel/staton - test with eyes open) - 0(Absent) 8. Sensory Loss (pinprick arms/legs/face) - 0(Normal) 9. Best Language: Aphasia (description/naming/reading) - 0(No aphasia) 10. Dysarthria (speech clarity - read or repeat words) - 0(Normal) 11. Extinction and Inattention (visual/tactile/auditory/spatial/personal) - 0(No abnormality) Initials: afsaneh Signatures: Dispatcher [employer] EDLeeanne Mathis, SEX OFFENDER TREATMENT PROFESSIONAL SEX OFFENDER TREATMENT PROFESSIONAL Azalia Matthews RN Lance Boucher em1 Hilda Truong RN RN tl2 Shabnam Arias RN RN jl7 Annabel Nye kw1
--- NOTE | 2018-06-14 09:26 | EKG ---
Test Date: 2018-06-14 Test Time: 08:21:30 Palliative Nurse: ARLIN MEASUREMENT RESULTS: Intervals: Rate: 61 DE: 196 QRSD: 110 QT: 422 QTc: 424 [place]: P: 60 DE: 196 QRS: -43 T: -11 INTERPRETIVE STATEMENTS: Normal sinus rhythm Left axis deviation Minimal voltage criteria for LVH, may be normal variant Nonspecific ST and T wave abnormality Abnormal ECG Compared to ECG 06/10/2018 03:38:07 Left-axis deviation now present Left ventricular hypertrophy now present ST (T wave) deviation now present Left bundle-branch block no longer present Electronically Signed On 06-14-18 09:25:55 CDT by Daniele Cassidy
[2018-06-14 09:45] VITALS: BP 169/90; O2SAT 97
== END 2018-06-14 09:36 | disposition home or self-care (01) ==
LOC: ER 06:32
DX: S09.8XXA Other specified injuries of head, initial encounter (principal); I48.91 Unspecified atrial fibrillation; I10 Essential (primary) hypertension; W06.XXXA Fall from bed, initial encounter; Y93.9 Activity, unspecified; Y92.9 Unspecified place or not applicable; Y99.9 Unspecified external cause status; Z79.01 Long term (current) use of anticoagulants
CPT/HCPCS: 36415; 70450; 71250; 72125; 80048; 80076; 81003; 82550; 82553; 83735; 83880; 84484; 85025; 85610; 85730; 86850; 86900; 86901; 93005; J7030; 96360; 99285

== ENCOUNTER 2020-11-08 14:22 | Emergency (ER) | payer OTHER ==
--- OUTSIDE RECORDS SUMMARY | 2020-11-08 14:30 | XMS REPORT | Continuity of Care Document ---
:1935 Author Organization [facility] t Address [address] [place] [address] Care Team Providers Name Role Phone Sandhya DE LEON Primary Care Physician Unavailable Juliana GARIBAY, L Attending Clinician Unavailable Sandhya De Leon MD Attending Clinician Sandhya DE LEON Attending Clinician Unavailable Saloni GARRIDO, [place] Attending Clinician Payers Payer Name Policy Type Policy Effective Date Expiration Date Sour ce Number [facility] [id number] 2018 MD Rankin rson MEDICARE 00:00:00 [facility] MEDICARE [id number] 2018-PresentMe dicare Problems Condition Condition Condition Status Onset Resolution Last Treating Co mments Source Name Details Category Date Date Treatment Clinician Date Atrophic Atrophic Disease Active vaginitis vaginitis 7-17 Chucho rso 00:00: n 00 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 Social History Social Habit Start Date Stop Date Quantity Comments Source Sex Assigned At MD Soto Medications Ordered Filled Start Stop Current Ordering Indication Dosage Frequency Signature Comments Components Source Medication Medication Date Date Medication? Clinician (SIG) Name Name clonazePAM 2019-11 Yes 1mg Take 1 mg MD (KlonoPIN) 0-07 by mouth Patel so 2 mg tablet 16:35: daily. n 09 oxybutynin 2019-11 Yes 10mg Take 10 mg M D (DITROPAN-X 0-07 by mouth Chucho rso L) 10 mg 24 16:35: daily. n hr tablet 09 gabapentin 2019-11 Yes 100mg Take 100 MD (NEURONTIN) 0-07 mg by Anderso 100 mg 16:35: mouth 3 n capsule 09 (three) times a day. losartan 2019-11 Yes 100mg Take 100 MD (COZAAR) 0-07 mg by Anderso 100 mg 16:35: mouth n tablet 09 daily. calcium 2019-11 Yes 1{tbl} Take 1 MD carbonate-v 0-07 tablet by And erso itamin D3 16:35: mouth n ([id number] 09 daily with 0+D) 1,500 breakfast. mg - 400 units (600 mg elemental calcium per tablet) per tablet sotalol 2019-11 Yes 80mg Take 80 mg MD (BETAPACE) 0-07 by mouth Patel so 80 mg 16:35: twice n tablet 09 daily. rivaroxaban 2019-11 Yes 20mg Take 20 mg MD (XARELTO) 0-07 by mouth Jacques o 20 mg 16:35: daily. n tablet 09 sertraline 2019-11 Yes 50mg Take 50 mg M D (ZOLOFT) 50 0-07 by mouth Chucho rso mg tablet 16:35: every n 09 morning. estradiol 2019-11 2020- No 10ug Insert 10 MD (VAGIFEM) 0-07 10-07 mcg into Patel so 10 mcg 16:35: 00:00 the vagina n vaginal 02 :00 2 (two) tablet times a week MTH. estradiol Yes Vaginal INSERT 1 M D (VAGIFEM) 8-04 high risk TABLET And erso 10 mcg 00:00: human INTO THE n vaginal 00 papillomavi VAGINA TWO tablet zainab (HPV) TIMES A DNA test WEEK( AND FRIDAY) FOR 30 DAYS estradiol Vaginal 10ug Insert 1 (VAGIFEM) 706-20 high risk tablet (10 Anderso 10 mcg 00:00: 00:00 human mcg) into n vaginal 00 :00 papillomavi the vagina tablet zainab (HPV) 2 (two) DNA test times a positive week MTH for 30 days. hydrALAZINE Yes twice (APRESOLINE 5-20 daily. Jacques o ) 10 mg 00:00: n tablet 00 ibandronate Yes every 30 (BONIVA) 3-08 (thirty) Anderso 150 mg 00:00: days. n tablet 00 Vital Signs Vital Name Observation Time Observation Value Comments Source Systolic blood pressure 2020-08-23 15:43:57 123 mm[Hg] MD Soto Diastolic blood pressure 2020-08-23 15:43:57 75 mm[Hg] MD Soto Heart rate 2020-08-23 15:43:57 77 /min MD Patel rojas Body temperature 2020-08-23 15:43:57 36.72 Kalli MD Yvette harris Respiratory rate 2020-08-23 15:43:57 18 /min MD Yvette harris Body weight 2020-08-23 15:43:57 73.7 kg MD Patel rojas BMI 2020-08-23 15:43:57 28.79 kg/m2 MD Patel rojas Procedures Procedure Date / Time Performed Performing Clinician [facility] e PATHOLOGY BIOPSY 2020-08-23 16:41:00 Falguni De Leon MD INTERPRETATION CYTOLOGY GENERAL ASSISTANT INTERPRETATION 2020-08-23 16:40:00 Falguni De Leon MD CYTOLOGY HPV 16/18 GENOTYPING 2020-08-23 16:40:00 Sofya De Leon MD AND HIGH RISK POOL Encounters Start End Encounter Admission Attending Care Care Encounter Source Date/Time Date/Time Type Type Clinicians Facility Department ID 2020-08-23 2020-08-23 Outpatient ASTER DE LEON MDA MDA [id number] 10:20:30 10:20:30 FALGUNI rivera 2020-07-14 2020-07-14 Outpatient ASTER DE LEON MDA MDA [id number] 00:00:00 00:00:00 FALGUNI rivera 2019-06-29 2019-06-29 [id number] 00:00:00 00:00:00 Soren Parr [id number] Amaris [id number] [facility] [id number] [facility] Building Results Test Description Test Time Test Comments Results Result Comments Source Cytology GENERAL ASSISTANT Interpretation 2020-08-31 20:08:00 Test Item Value Reference Range Interpretation Comme nts Gross q0rmtKWuBAAju2huTMRlVhKzIZOHm6jkc321aRSvFFmrPlKaTfO7oICsZIGcaWWun5V0OCggvNRjDeXG rjadbCp7q6veR5lsym3zMZ9nQaKuNAFvVFLfWMVjiiSaCAIolXBzPB4jldVXp38firi4h8piTPfsdT4f XQJbTWCvvHNhr2K3LWlpbCJmXBMXo9RfrSClWW2kalq Description 5b1tkYVgkb5mfn7KaZsFgJPWbXLDzBUSqkdMvWUXffRVxLG5yacNbepk8e5ckGPQrGx4bDEErnnguE9r vcpVwgXEkFkVifACoO603ltkoyya0s7ikTIErLk1zzQanE8ijoaFgsERfKcKapCKoVQDusVZEsIQmjhS vkFZ2xRvaXxTiJHXqu65srsrlQ9lagoGzeBAuVgHyrD (test code = SuK2unZa9vX204RLBbRWqcx7sxb8JpRhPdJHAwTVYfDJXztbNkZBHkV33jHLBGJ449JPTuNIIpSRNkt3 ock9szJ5bqqeYtoZDpNqVjcMGpBQKiMSf2kO5Lw6dbj8kyprAbkVB6KWYvYDDtJ0YuDF8uNXEomTTgD6 egJAGtZDbrhcMpkgX6RBQecRVeEKcfqnNmMyQeX3ObO [id number]) I0vGHfsrILvHsW2FASfNWS2IMhaGUHlJRhsQqo5SLN6S2vvKFL5T6bjuzSujzEaAMMrcIG1OkuxuaIqL extV8RjIR45ZMqnoIGmHca6ENGtFHs9BWjzMNTjEDBxHvt0HYb4T7jpMGMcAQXhZ2WyGT6tSJNePst7H XNnSZxmycPqLWV1YYgxHHPqSIP2MMVdpXDbPgj2ZBRv EAK4H0mjpaLmyaJ8A0hutWDvPYPtX9lqKIRnRVsoZ3JsBV7oEJflFcs3OWG7GKlibhZnWDo8XLkbQHVe NSs9QEUjuTPeIoR2FJEqHNK1PTkfxdBvwvR5PXqvgIAbHFidS2cnQBMeDBxyR1LhVH6yWKtcQor8GBXt AejknjLiBxXpXXqrVPKbEbMfBCYmaFBgNoV8SYYgUEB nXGnwcpOqtcNyAZifcOMlMdL0G0chQCPuXAXqG9OuRS8rHNBpQbw3ICD1OZvbwdQdXTdjreKkzcNiYzv 3WPQ5DVb8Ooyrx4F8eEVfnPMjcWsbzlDiiJVcKLnaCtCqM162OCKtMKcjTGPoxzgaLxw1n3dcUyYzVJS rzA3nUKX0cHcaryZsgQZfXIgsXwI4D268HCY5CDblMU ZbaehsVQv2n6gnBbBdIPWijS6fVAC1iL5YVzfeNRBtgibzPNm6IJzlJYJaaeonDqY2FQecYKPxoOk1KJ dsDNNojpY8YtplNJDozUdvDVreOMLeEirqTRqlGDMrRWG1JqNvEOEev7Vnsqc3HlWyBiMyOEGBLhdxkB ReGCX3ORG2ZpGmRLUrPtjjENVvFL3hyCdboYy9gWlaF FFwnuP2fYAdGEixo3ifSLX1e1qmxihaIEEsSHobHk5crBMjxQidMoRsCRZgQTq7hF91JCVfeS1awLSeD Vb9KGEbncJvrUgyjR8pDnJqHQAsTPD7toOECJKtSOYaNKecxvFcJEm4YRDukASzhWcuQPN3Ak3= Specimen e4ztrAWlFWFcwQPyXjYsPNSqQLWmy8uqCVKevXByZmXiTcKaUkZgYldxfWDpJJRvOgWwx2ycu051uZWb t3dvWQCzXzV2fTZlTHUdjIJrL781AIKeYOscv6yxi9RqWFXlsIWco3Y6BMTJnyppgUs4k0fiTiWjNm6x eSLVm3NbuIRaQP2vjbp2bWllZ87qj3O7KoavI2xrWAD Information zKQGbF2VcTO4xBQGeCyr3BUM7TIC9XGRzCAYbJ5XwTA5bUVPhsCRjVNybvaPwPKfwrxEfyrSvBib2AMG 3CEM1XORwXFRnTRhhwoYaqzPqVse4NCCtAHA9UZDeIJI1SNqabkIxsmEyWjv6SDEhM476PKJ8eKpky0q tUOD8IVXuXVDmHcBxZj6frTMmD384CJFsCRZMXIDysE (test code = c5LGIacsGpvnLouCLXm977S692XFOxGXFiPBb2NuUNLFKfkad3uY0fSYXubm92kDojpgFvc63mpBGlMO ilMlTqODPxEnwotFOnx08vQSrknIh6v4lipjPejHGSOVXbhxy2aF1sZ477QTG4WZUoGBs4WDurrGNnrV 4oqSP2YSgiWGLhHZjyZgbmCoHtGDutTMFkFFrzqXBqt 22999) 6B3bSwpYRhitcZyKSfeCDHuueCXFDl3b6zdEolrngX9eWHrp5U7iPfrYVvvjnRpJcikqbY6JROzm6OuS DZlt0AxXCVgz9xdTL60qJztoyOoGTXzvMBpd3PytJ9gPGW2xWoozolia09yjXTtJZ19bAvrtjGmROUnn DDyUzBeVUlvXJDcLIWwSKJrTPTfBWSvVQaerWXcrV9n wWV3YJakPMboNTMtIPsmT550RFG8VBBsWBs0CEncrGOykK8leIJ6MXs5VKVfHhZrAwwvYzZaYUzeLZKu XPkugLSkv1Z0vFamNWwwwbUjTKxtFPOfeyMHNQk5v9hgECcjieB7kISek9Y4pJtuIKfjmaUmHVjqmnUa ICCez0BaRFXta5ApDOEjg9jqJM40rTpsvrLeAEGtrBG wd1IqrS9gIRV7wVaimuFdMBVdSGw3CWtnxJPydJ4ykYB3FTo9MAWnXLArBpwoMfNaWDvnNGOhHTwejYA oy8G4fAxkXKkztzTaZoqlMDCylqLYMjt4w8amHQRba44hfGSmQPzqNTQjbeJqgpx8n3rpRVOcy60oiLL wXGxpMzYwXHJpMzYwXHNiMTAwXHNhMTAwXHNsMCBCbG 4cm2U3p2HvV346LTZnFZIkgRQRNGNHR250NXYlZLSlKqSdDtMmYYSGR0OTU746CIWdYNXskFvqTPEaCW CbXFjpXG2jyZKxxYK9zCloA7FsGpx0eQmgUtYtJRiwFQSzrN4yU168PCLiVZaczCkmB1K9LQIglQcoi1 KuMDybUWPtxC0pF479IKFgTMjoEdNnWtAqBRgfDXuvn WOoAMSsP704PAEvJMuxzjC2dHWrYxOtMmYzXGb9yHGrwVq7KNrlmYkjJHK1FRV0Iub3P7h8yBR0QzSqo Nv9Aoj9YKR5QQq1RIj9iLE7EIIoiAw3UpacCBN2LBLiIHa6sQd1AGEzh5JjAXHmAJmidUZxTIYpSz3ve BA0aVBhS898BHUbCZulfqJ6aUEdFfIjWuRdXtn2OBRp PFR8TIZpRHLjPgghykSuT5VoIIPdBJilVi15qX7sXH1zPEOixh90sYaxltUyJBKeSLo1ODtaWZvjcgB0 JMNhAiFedtXiPdOvucNbGCNzYZLmGjTbvGXvhh4Kf4Yym0ViWg0axIu4d0awfyFxCPBkHYHygHSjGQb4 h0vbpwWyWOOgM7Lkl00eD360QOAdMeIcEeAsOmZtGTG BjVFtu8EbcOZoA758TFScGtBogCRFSTOsHZLiCZo2q8przqO1QQYfX7I6YJkEMHliNWNnd6LiM527YCR wYowlddZFa71yAX23D180f5pyMKZjllHkaYaGhphxh1tnQ323RJWgpVLgtzFyNuZsGVOsqZXgcMX8ZVE jME0gnhlvLXpwZDadRTMsbnA2TVNwpWOkE5OhRAMeTQ 6nukwiNQD6CKmtDZAfDBK1TrHoOLYdx6Mfuoy8NhWlnk1syy19CZJ2e1GhyBdmQOL9MUJ6NmUkGv6tuO QwIGNrIR3dDqKegHRdEMMhyz53tOtsNDcbxcMtiQ5cJrTeHDIgoBQxCOBgDH1ebYXeNEMkyX8aayxsVV IcDeVflgipETYgwTaddfYqXx1jeCixDKZ3CRrxI1siw Y3iNkK9MHkyB4cbnF9vLYq9XCqybTU7VFLwxF3cZU2mjkiqp3dpEKetNEixSYFhwvT8uhI5ACSuqESnA 3AdgW9uKMTnSQ3yvszvg6jePEX7UDisOJNiXLZ6FfLoVKDdm1Olnqa5PcYiw1CxpKHnUFpaS88jz931F FBjwiTxK6ounOCjcyvznUWivgxtTVytgtG5KVCqhlRt xMqznT4sXvOmHcBpBQhjZI9iUUMgA4atvWUzGLZvGLZfR0rvAmTsgC9ltKmpIEsvHoUaUpWxCQIFAsOF FOddwnRzXRM9miSIDKDuKLFPiLT2dDWzUwVmWPWaHLZgmIIeFPGqh48yVXC3XWRuLOwuDWI6 Specimen Satisfactory for evaluation Adequacy (test code = 9847) Diagnosis Low grade squamous intraepithelial lesion (LSIL) A (test code = 9849) HPV Reflex Yes for [employer] (test code = 9974) Informationa y5fmgACnITYzoFJnJtZnXFGfZMKvz4dwJRIhmGAwDePvIiYyUyKpTxvwaMPwWRGkMkEkd0vvz886iXUj a6viXNHwWyT3zTSoLLFxaFLjH675SMDnUSyiz7jos2YnFGHewEUwn1K4UQDIKUqbRWXCNOi4o2ajFiWs SsU7aNGqXLnaZ3eetkFknDDdLNCaSPy2pL01ZYYmtY1 l Points wcFKhZWzrvzDgXiS7IBbtWUDdAvE0QBOdoSVkPQKxH0ncRTUjLArzHTCdRCpaaVOmAET7nJezl4D3iTQ gdSZvsPpzYhIzNdLfFqHQy4LzKBr0kFijP8LkTQXoXxC3kAYpRJJrPPxmJIPxGKRhirJ4jL16MLutzvH 6oZMzn4Arz31kd809aZ1ppCSbUNS3WHXuQKSfcAWlUY (test code = OqWOO5DZPnuITwD2tiZMLlWN9cxrubCBhiYOlaUJSrbJK7BTYfwIBqG6LqHIBaJMvcLSPvqqw6TdOtQm 0kuNNzlYluNTbqs4owy0fejARkSrp8OZZvVsKiBosyBPdiw5Yrz4qwFIDzol2kYIT0wZFwxHowg5Z8cD WlOVDzfYPnogDiFAOcDpT1IVwwGK4qmt06MLUcJEC8p 9836) u0fyRUwbYiexjJkcYYlKVoiB2BaWKUpv860MKNoM5HpOCHvp7Y2duImCcQjQVFixOP9djX9WSAzRJn6p JDjpkD4geHfnQBsO5owmQ8pFOHyRQ2uuxdyy8zdGGjvBHsuAFNviCQ1oyB0BXSewFCeS8DioF6tABXzG DjrKLOcebp0WlQrYa2meWDnnWhuWYzpOilbCNgiYBDq akOhugBhaRtqPVUzLDSaPBewYTIqDOswWJGzEYKlEbRjkIahqKyaeB6fZsZbWqYnITgeIW9tOKMfR4bn rUXqWLMfICAmM8laBaReyX6zbQupXJsuzeG8VIdvG6Dfqgtvl5GfH2wfIKhcF5f1b6lyJ8kqhHGkEJPf T9DfAA8gmtbqhLBoJ5VebEScUXO2ZezxL5RhdX2pIsG wy8MtfhTtZPYwpgTkWVVrTMNqTGslXNGfe0PjyPh8ZQXrAEIgn5MdvJWfIZKfYK7jbnYgkaWszPZlhFW zz0qisfXoKBVhpCpiToJfjQ0whKZrLS1dcMIsjUOmf4N3IRapDBTyo29kTMSwORk3rTEwRPJtuQW4fWJ syvQdJfMcgFFyRZ0rRLYyw5QhWYVfHILpsnDoyfQxXQ CpNFZ7i8acmQdslnP2rPTvSETyr2VqEY0vLUB4qrKxtyUoG0dlftwfMCdrFMH2KN0tVTAgfmSBd63kMA Qcj0PwFCDqaV2lbQCsZZlpsdOebOU7CSlobqZoPgXzriLeMNPakC5vKZPcUT3sYSSuwqNmqs5nicQfAA AzUTMcE6NxbttssFxdnkDdDDArna2zjfRcCUN8FPYJX K3SVBKkODDoz26zGXAzvPslzQ2mtUGfkdTuKVEeo2PsxU0kkXDNHFUcQ0jvGE7iNApqa0GwnLEtpJLmr FN7GUYan7NyDmNtnfKceNAjiFIaX5NwwOwpY1inUBLsYWEyyiDogEHhx9MmBLBmhFG7mYZbIP4TGnJFa 38rPQRdXSIPfdJsBGNuqYuqiFX6kuL1rV8eHcHjqPys gX6pWsJvWaFgHesfIW0tJBItZ5bptGUpHGVqWMEnM3auFoHijF6kvB xmMlxmczIyXHBhcn0= Lab Abnormal Interpretati on (test code = 41975-0) MD [facility] HPV 16/18 Genotyping and High Risk [id number] 17:48:00 Test Item Value Reference Range Interpretation Comments HPV Type 16 (test code Positive Negative, A = 9853) Indeterminate, Invalid HPV Type 18 (test code Negative Negative, = 9854) Indeterminate, Invalid HPV High Risk Negative Negative, Non-16/18 (test code = Indeterminate, 9855) Invalid Informational Points The freddy HPV Test (test code = 9852) ([facility], [place], [place]) is a qualitative in vitro diagnostic test for the detection of Human Papillomavirus in cervical specimens collected in PreservCyt Solution or SurePathTM Preservation Fluid. The test utilizes amplification of target DNA by the Polymerase Chain Reaction (PCR) and nucleic acid hybridization for the detection of 14 high-risk (HR) HPV types in a single analysis. The test specifically identifies types HPV16 and HPV18 while concurrently detecting the other high risk types (31, 33, 35, 39, 45, 51, 52, 56, 58, 59, 66, and 68). The performance characteristics of this test were validated and determined by the [facility] cytology laboratory. These validation analyses have confirmed the accurate performance of the assay of the automotive porter s stated limit of detection for the target of the test in various specimen types. The [facility] cytology laboratory is authorized under Clinical Laboratory Improvement Amendments (CLIA) to perform high-complexity testing. The [facility] Department of Pathology is accredited by the [employer] ([employer]). Lab Interpretation Abnormal (test code = 34053-4) MD [facility] Biopsy Pqfiyzupcvnxhp6819-80-31 18:47:00 Test Item Value Reference Range Interpretation Comments Diagnosis (test code = 34) l5wntUEfITFaqXC1SGB bDXJor2hzq0YlbQInmH WmAZpagTQwuvHaqr41w AU8zW01TW4eIYMlXoF6 AXEgeuJ0Pos4SXSqOIJ ryCSzY788l4qba2cwnl QcyYR6lHluMYVuMULgA HxvWOJoQeRuME9mPgHy cM7pSOQ7OuSdSHEGkC0 nh0r9VWeyTEHjdDp2Kt BcbGluNzIwIFNxdWFtb 6JpGK21U69xUJvgmuVv YVAakmScVi9rHGG4x8Y fGMGwEW5laNLwHAaeJP dbkN0lODVzgkIJPermU EFRXHBhcn0= Gross Description (test q6cbyWDlMAFet9paZTX code = [id number]) vQnFjKYFSd8zym835aK AyFCmpVlHuTjZ2mCXrM YOniNOqu0C1RSrpzJFr TcHAhjlluKd6m9eoJ4k ods2ePK6nCoYvUNLaVT QwXGZwcnEyIFRpbWVzI X3unoHEu69ejke7e9rk PSfvtQ9mMVUxWTJfoZJ vg3C1DUfmqAMkEECDe1 YvtHMzTD8qxhg2t6qeQ Jume4mgw7ZkZcOuGLDn ZXQwXGZwcnEyIEFyaWF jIC9dqkKircc7r0asFV IzKc1hMSUiqatqT9weo yAqwMCtImOrgHYuV202 dmqwkod0d2ewRPVuTr0 xnMlmB8aggcTftDNgXv BycTIgVHJveSBNaWNyb jLhcPA0uMibHmIzLEOk g51tiejsR6gnhzTcfOW uCnNpdRYpA9fhFa9jQ1 32GSBoXWajg3dar4SrW mNoYXJzZXQwXGZwcnEy JOWcD54xRXFXW618BEY lFPMcNQWzl8jnn9hyD3 hhcnNldDBcZnBycTIgQ DLvOWa6nK7Ps7nap0sw veKisCD2SUGxXGRmM0B qKJ9tGRBgwNSuZ6biSU CpLUkhadHqdwD3BQJti KHuCKoivmBgPaJmW5Tw NY8fHOriqZCsPpH0NDN nYPE1NJiuOASpHBaxQx x7BNI4U5svTSI6D1wtg oKqmsAwYWYugJF3Ltjn nsDjCwbuH1HuKG06NSp xwYQgIyt4EXDnPVn6FA hmRIAkAJHsAhg6ARf3U 3qnJOQkPMOmO7WrRA6z AOIiNsy8KXXxTCokaaJ xFCT6NZgeTUUiHWQ4FR AlvVOrAvb2BMQiBZC1H 4sfnaSxkjR8S6ntiLMy EQTrJ6ghWEHpDTidE2V vQH7qZXcuOys6ZYC6JG okqvDoTYl3MUkyDDQaV Bk7UAKdlOCxTbC5GKGz UWO7DZzudiMcncD9IGy acBAjQOzeM0cnERZaXA tsQ0ZrWZ9aNIfeFwx2E TIwNztccmVkMjIzXGdy ZWVuMjIzXGJsdWUyMjM 7XHJlZDIzOVxncmVlbj JbRYktzRUwKgH0Z2zpY VNrAXIxE9LwLK7zZQRa Raa3BPO7FKhpxdDkMIm dbiHfwsUcWxh1ZWW6LI r4Cjbij2R8jSSsfWNfe HtcczEgaGVhZGluZyAx T064BVDcBRooZQQeksc uYmf6f5tvSsFfXOVpuD 2pINX7qQtgvlSjmRWtN BosJiI1N005HUP2OWxt DXDvcdwoDHm8t2wxPbP qFNKxcA7vBVT9yC7RIo hsXUBdfutfIEn6DOdjB VHbmfgoPzP6ZAsxSOQg hIi6VRzfRTSfohZ0Qqb tYXJndDcyMFxtYXJnYj gjNUarLENoFLT2ZmIbI JMzi4Tsdyp5JpJjXcGz MPCHKwuegENnITI0UCQ 0ZjFcZXBpYzkxMDFcYW 4zaEmwkZw9mGztIHMvb wG2qMJuHCxvs4rcIAO3 h2nmphwhJWMrFCqsNf7 udHRibHtcZjAgQXJpYW l8oZ11BPLbgL1ymXIiC Ez9GHQhorYcwQbtrJ7c ZnMyMCBBLiBWYWdpbmE xZVd5JNL6WAWrssDjb1 Juc3AmXTVroE6ufBAdh JBbBAAikcdnc98fwHW9 tAFhxSBlOfPuU56smhZ gdGhhdCBtZWFzdXJlcy KuDkGrP94sMGQrvAEko mVkLCBlbnRpcmVseSBz yHTwtFW8JHVoqY4tKVQ uICBccHJvdGVjdFxwcm 41ATD6ZNSWPMzojs47G OF6HAXhgOnklI9iUfXv WmrmRSK3YFEvfg2VxN= = Disclaimer (test code = l5whpSPmLKMbdLKvLaQ 9844) hCGFnUFGky2hjTGQfwP FuZzEwMzNcZnRuYmpcd IZhQBGfVcDxv2sgz077 qPAfe2zzTPMuGqB8uYQ qWOAueOIbC637IETeTV puk0oqu7MgHPNydVGsb 4S0GWAJdfukqLg0vGkt Q73sa9L9TikbZ9qnGEO qIDMiW1ZyGU5gTRXqRy w8EOD1BSX3WOZfSSBvU 5OvWZ6cUFQefMJbURp2 s7tqrMylHZPhUWO2r5h vOExsvzKkVV8ere7qjK d2d5mkiyYiPOIaHBZfx XLCPUMkI7NywKptSn4y hCh9rXypJwwmNSF7Xyw 2TU3zgm47puf0vWbwEX MzlzmhDqQ4RYxkTEWjt pshEIn1OKagLJVndSI7 EXSphHPwH7EpBOZqJI3 dnat3YUT2ZUntMWPxYm Y0MQFyyJGiAOSzyUrsH Zuzd819NQN0TgXnTA9i S5Xad5U9aP6omPAkWHK iuBFqHgQsOXDhwz1aiH HrVXbie0DbMDQ0yvF8m XNywEDoEDQzZN53Lijm t9CuGrceRIZ8UXJudcI pe6Ncd3vcXsGieaNyJ5 bpB1KgBNBdEBVnGOYpK vMjxaRsk6Qmb1DbvAYl sQx0y3ufPCFkAOWkbHp iy5plJYS3FDFqW3N6tB Kul3ypPDqjACNrdYI9p qQ7IIYjgCDiB9VffG6f SHTxZC6xqnp1a0lcMPD 5BNgyJPFdZaH1ggC0KU BcaGVhZGVyeTcyMFxmb 239JAK1QnBqCKMfa6Or S7QbhIzqG47uyKplN60 oZLBozNbbvN3urKcqqP 5cZjBcZnMyNFxxbFxwb NZbhctoVYivpmA2VMpm lbxsCTCnLYybQ2eeZyY xHFMcnYrbNKbnc7LzWT CtPXOfAyexzzS4TEFYe 89wGZIbe5TvFAOcuW6v iOGiUPjkcdYnlYF8ODu hdmUgYmVlbiBkZXZlbG 4mGGOrWV8oXOJtclBum s9bojJqAZNlBZWmU8Kk cmlzdGljcyBkZXRlcm1 chiFqODA6MZVOVY6CMO BfDVXth92bLBKljGfux O4wkNTsbbUzZWGme2Zr gG0djQAAIDErR9tmOD3 gJGzap7VpvMByiTTsxK L8LAXnr3EaEiQaaeUyp LUrgYSuY9JdxTuzM1ro GFPgGVLvjyUoqPBal7G sTJFggHW0gCBzCB5KPl MIe94dXHBiFKTHciPpB AYgvLbbhAE6cuM6mR7n LiBJZiBhcHBsaWNhYmx fGEBxe268zo1wdcA3KS EgSDIeiaxmx2QaKBOcD CXjwK77KUPjEUIvio2g tknifMAscaQtF5Drcsh 5zE8qLUTiTZgpRFGhTL ZzMjJcbGFuZzEwMzNca GljaFxmMVxkYmNoXGYx DNibA7jrJkGhVgLwOwd wYXJ9 MD Soto
--- NOTE | 2020-11-08 15:58 | RAD REPORT ---
EXAM DESCRIPTION: CT - Head C Spine Mpr Wo Con - 11/08/2020 3:38 pm CLINICAL HISTORY: Head and neck injury status post fall. Head and neck pain COMPARISON: 2018 TECHNIQUE: Computed axial tomography of the head and cervical spine was obtained. Sagittal and coronal reconstruction was performed. All CT scans are performed using dose optimization technique as appropriate and may include automated exposure control or mA/KV adjustment according to patient size. FINDINGS: Mild right frontal scalp swelling. An intracranial bleed is not seen. The ventricles are n ormal in caliber. An extra-axial fluid collection is not noted.Fluid within the visualized sinuses an d mastoids is not seen A cervical fracture is not visualized. No dislocation is noted.Mild anterior subluxation C3 on C4, C4 on C5 and C5 on C6. This is chronic. 4 millimeter collection of gas has developed within the left vertebral foramen of C6 IMPRESSION: No acute intracranial abnormality is seen. A cervical fracture is not visualized. 4 millimeter collection of gas within the left vertebral foramen of C6 likely is related to degenerat kelle changes and probably is not significant. However, if the patient has clinical symptoms to suggest acute pathology in this region then further evaluation with MRI may be helpful
--- NOTE | 2020-11-08 17:15 | RAD REPORT ---
EXAM DESCRIPTION: RAD - Knee Right 3 View - 11/08/2020 3:59 pm CLINICAL HISTORY: Right knee pain status post injury FINDINGS: No fracture or dislocation is seen.
--- NOTE | 2020-11-08 18:02 | EDPHYS ---
Physician Documentation [facility] Name: Juanita Mcghee Age: 85 yrs Sex: Female : 1935 Arrival Date: 11/08/2020 Time: 14:23 Bed 15 Private MD: ED Physician Werner Gomez HPI: 11/08 19:44 This 85 yrs old Female presents to ER via Ambulatory with complaints of Fall kdr Injury. 19:44 Details of fall: The patient fell from an upright position, while standing. Onset: The kdr symptoms/episode began/occurred suddenly, 2 day(s) ago. Associated injuries: The patient sustained injury to the head. Severity of symptoms: At their worst the symptoms were mild, in the emergency department the symptoms are unchanged. The patient has not experienced similar symptoms in the past. The patient has not recently seen a physician. Historical: - Allergies: 14:47 No Known Allergies; sv - PMHx: 14:47 Anxiety; Atrial Fib; Hypertension; neuropathy; sv - Immunization history:: Adult Immunizations up to date, Last tetanus immunization: up to date. - Social history:: Smoking status: Patient denies any tobacco usage or history of. ROS: 19:44 Constitutional: Negative for fever, chills, and weight loss, ENT: Negative for injury, kdr pain, and discharge, Neck: Negative for injury, pain, and swelling, Cardiovascular: Negative for chest pain, palpitations, and edema, Respiratory: Negative for shortness of breath, cough, wheezing, and pleuritic chest pain, Abdomen/GI: Negative for abdominal pain, nausea, vomiting, diarrhea, and constipation, Back: Negative for injury and pain, : Negative for injury, bleeding, discharge, and swelling, MS/Extremity: Negative for injury and deformity, Neuro: Negative for headache, weakness, numbness, tingling, and seizure activity. Psych: Negative for depression, anxiety, suicide ideation, homicidal ideation, and hallucinations, Allergy/Immunology: Negative for hives, rash, and allergies, Endocrine: Negative for neck swelling, polydipsia, polyuria, polyphagia, and marked weight changes, Hematologic/Lymphatic: Negative for swollen nodes, abnormal bleeding, and unusual bruising. 19:44 Eyes: Positive for swelling, Ecchymosis to both orbits. Exam: 19:44 Constitutional: This is a well developed, well nourished patient who is awake, alert, kdr and in no acute distress. Eyes: Pupils equal round and reactive to light, extra-ocular motions intact. Lids and lashes normal. Conjunctiva and sclera are non-icteric and not injected. Cornea within normal limits. Periorbital areas with no swelling, redness, or edema. 19:44 Neck: Trachea midline, no thyromegaly or masses palpated, and no cervical lymphadenopathy. Supple, full range of motion without nuchal rigidity, or vertebral point tenderness. No Meningismus. Chest/axilla: Normal chest wall appearance and motion. Nontender with no deformity. No lesions are appreciated. Cardiovascular: Regular rate and rhythm with a normal S1 and S2. No gallops, murmurs, or rubs. Normal PMI, no JVD. No pulse deficits. Respiratory: Lungs have equal breath sounds bilaterally, clear to auscultation and percussion. No rales, rhonchi or wheezes noted. No increased work of breathing, no retractions or nasal flaring. Abdomen/GI: Soft, non-tender, with normal bowel sounds. No distension or tympany. No guarding or rebound. No evidence of tenderness throughout. Back: No spinal tenderness. No costovertebral tenderness. Full range of motion. Skin: Warm, dry with normal turgor. Normal color with no rashes, no lesions, and no evidence of cellulitis. Neuro: Awake and alert, GCS 15, oriented to person, place, time, and situation. Cranial nerves II-XII grossly intact. Motor strength 5/5 in all extremities. Sensory grossly intact. Cerebellar exam normal. Normal gait. Psych: Awake, alert, with orientation to person, place and time. Behavior, mood, and affect are within normal limits. 19:44 Head/face: Noted is contusion, that is superficial, ecchymosis, that is mild, of the forehead, right eye and left eye. 19:44 Musculoskeletal/extremity: Extremities: grossly normal except: noted in the right knee: contusion. Vital Signs: 14:47 BP 136 / 97; Pulse 75; Resp 16; Temp 99.1; Pulse Ox 99% ; Weight 65.77 kg; Height 5 ft. sv 5 in. (165.10 cm); 17:10 BP 145 / 92 LA Supine (auto/reg); Pulse 57; Pulse Ox 97% on R/A; Pain 0/10; jp3 18:26 BP 143 / 106; Pulse 68; Resp 17; Pulse Ox 100% on R/A; Pain 4/10; ll1 14:47 Body Mass Index 24.13 (65.77 kg, 165.10 cm) sv Susana Coma Score: 18:31 Eye Response: spontaneous(4). Verbal Response: oriented(5). Motor Response: obeys ll1 commands(6). Total: 15. Trauma Score (Adult): 18:31 Eye Response: spontaneous(1); Verbal Response: oriented(1); Motor Response: obeys ll1 commands(2); Systolic BP: > 89 mm Hg(4); Respiratory Rate: 10 to 29 per min(4); Susana Score: 15; Trauma Score: 12 MDM: 18:02 Patient medically screened. kdr 19:44 Data reviewed: vital signs, nurses notes, lab test result(s), radiologic studies. kdr Counseling: I had a detailed discussion with the patient and/or guardian regarding: the historical points, exam findings, and any diagnostic results supporting the discharge/admit diagnosis, lab results, radiology results, the need for outpatient follow up. 11/08 15:28 Order name: CT Head C Spine; Complete Time: 17:49 snw 11/08 15:28 Order name: Knee Right 3 View XRAY; Complete Time: 17:49 snw Administered Medications: No medications were administered Disposition: 11/08/20 18:02 Discharged to Home. Impression: Other slipping, tripping and stumbling and falls, Superficial injury of head, Facial contusions, Pain in left leg. - Condition is Stable. - Discharge Instructions: Head Injury, Adult, [id number], Knee Pain, [id number]. - Medication Reconciliation Form, Thank You Letter form. - Follow up: Private Physician; When: 2 - 3 days; Reason: If symptoms return, Further diagnostic work-up, Recheck today's complaints, Continuance of care, Re-evaluation by your physician. - Problem is new. - Symptoms are unchanged. Signatures: Dispatcher [employer] Kian Meeks RN RN sv Rittger, Kevin, MD MD kdr Lewis, Lynsay, RN RN ll1 Corrections: (The following items were deleted from the chart) 18:37 18:02 11/08/2020 18:02 Discharged to Home. Impression: Other slipping, tripping and ll1 stumbling and falls; Superficial injury of head; Facial contusions; Pain in left leg. Condition is Stable. Forms are Medication Reconciliation Form, Thank You Letter, Antibiotic Education, Prescription Opioid Use. Follow up: Private Physician; When: 2 - 3 days; Reason: If symptoms return, Further diagnostic work-up, Recheck today's complaints, Continuance of care, Re-evaluation by your physician. Problem is new. Symptoms are unchanged. kdr
--- NOTE | 2020-11-08 18:02 | ER ---
Nurse's Notes [facility] Name: Juanita Mcghee Age: 85 yrs Sex: Female : 1935 Arrival Date: 11/08/2020 Time: : Bed 15 Private MD: Diagnosis: Other slipping, tripping and stumbling and falls;Superficial injury of head;Facial contusions;Pain in left leg Presentation: 11/08 14:45 Chief complaint: Patient states: s/p fall on 11/06/20 after tripping on something on sv the ground and hit the right side of the face/forehead. Denies LOC. c/o right knee pain, bruising noted to bilateral eyes and right side of the forehead. Coronavirus screen: Client denies travel out of the [place] in the last 14 days. At this time, the client does not indicate any symptoms associated with coronavirus-19. Ebola Screen: No symptoms or risks identified at this time. Risk Assessment: Do you want to hurt yourself or someone else? Patient reports no desire to harm self or others. Onset of symptoms was November 06, 2020. 14:45 Method Of Arrival: Ambulatory sv 14:45 Acuity: JANNETTE 3 sv 14:47 Initial Sepsis Screen: Does the patient meet any 2 criteria? No. Patient's initial sv sepsis screen is negative. Does the patient have a suspected source of infection? No. Patient's initial sepsis screen is negative. 18:32 Care prior to arrival: None. Mechanism of Injury: Fall. Trauma event details: Injury ll1 occurred in the [facility]. Trauma Activation: Not Applicable Physician: ED Physician; Name: ; Notified At: ; Arrived At: Physician: General Surgeon; Name: ; Notified At: ; Arrived At: Physician: Radiology; Name: ; Notified At: ; Arrived At: Physician: Respiratory; Name: ; Notified At: ; Arrived At: Physician: Lab; Name: ; Notified At: ; Arrived At: Historical: - Allergies: 14:47 No Known Allergies; sv - PMHx: 14:47 Anxiety; Atrial Fib; Hypertension; neuropathy; sv - Immunization history:: Adult Immunizations up to date, Last tetanus immunization: up to date. - Social history:: Smoking status: Patient denies any tobacco usage or history of. Screenin:30 Abuse screen: Denies threats or abuse. Nutritional screening: No deficits noted. ll1 Tuberculosis screening: No symptoms or risk factors identified. Fall Risk Fall in past 12 months (25 points). Ambulatory Aid- Crutches/Cane/Walker (15 pts). Gait- Impaired (20 pts.). Total Krishna Fall Scale indicates High Risk Score (45 or more points). Fall prevention measures have been instituted. Side Rails Up X 2 Placed Close to Nursing Station Frequent Obs/Assessments Occuring Family Present and informed to notify staff if the need to leave the bedside As available patient and family educated on Fall Prevention Program and Strategies. Primary Survey: 18:31 NO uncontrolled hemorrhage observed. A: The patient is alert. Airway: patent, No ll1 supplemental oxygen in use on arrival. Breathing/Chest: Respiratory pattern: regular, Respiratory effort: spontaneous, unlabored, Breath sounds: clear, Chest inspection: symmetrical rise and fall of the chest. Circulation: Heart tones present. Pulses: palpable right radial artery and left radial artery. Skin color: pink. Disability Alert. Exposure/Environment: There is no evidence of uncontrolled external bleeding. 18:32 Reassessment Airway Airway Patent Oxygen No O2 Breathing/Chest Respiratory pattern ll1 Regular Respiratory effort Spontaneous Unlabored Breath sounds Clear Chest inspection Symmetrical Circulation Pulses Palpable Color [employer] Disability Alert. Assessment: 17:10 General: Appears in no apparent distress. Behavior is calm, cooperative, appropriate ll1 for age. Pain: Denies pain. Neuro: Level of Consciousness is awake, alert, obeys commands, Oriented to person, place, time, situation, Appropriate for age Estimator Lumber are equal bilaterally Moves all extremities. Full function Gait is steady, Speech is normal, Reports head injury. 17:10 Cardiovascular: No deficits noted. Respiratory: No deficits noted. GI: No deficits ll1 noted. Musculoskeletal: Circulation, motion, and sensation intact. Capillary refill < 3 seconds, Range of motion: intact in all extremities, Reports. 17:10 Injury Description: Head injury Bruise. ll1 18:10 Reassessment: No changes from previously documented assessment. Patient and/or family ll1 updated on plan of care and expected duration. Pain level reassessed. Vital Signs: 14:47 BP 136 / 97; Pulse 75; Resp 16; Temp 99.1; Pulse Ox 99% ; Weight 65.77 kg; Height 5 ft. sv 5 in. (165.10 cm); 17:10 BP 145 / 92 LA Supine (auto/reg); Pulse 57; Pulse Ox 97% on R/A; Pain 0/10; jp3 18:26 BP 143 / 106; Pulse 68; Resp 17; Pulse Ox 100% on R/A; Pain 4/10; ll1 14:47 Body Mass Index 24.13 (65.77 kg, 165.10 cm) sv Susana Coma Score: 18:31 Eye Response: spontaneous(4). Verbal Response: oriented(5). Motor Response: obeys ll1 commands(6). Total: 15. Trauma Score (Adult): 18:31 Eye Response: spontaneous(1); Verbal Response: oriented(1); Motor Response: obeys ll1 commands(2); Systolic BP: > 89 mm Hg(4); Respiratory Rate: 10 to 29 per min(4); Susana Score: 15; Trauma Score: 12 ED Course: 14:23 Patient arrived in ED. rg4 14:45 Arm band placed on. sv 14:47 Triage completed. sv 15:38 CT Head C Spine In Process Unspecified. EDMS 15:59 Knee Right 3 View XRAY In Process Unspecified. EDMS 16:59 Alf Vidal, RN is Primary Nurse. ll1 17:08 Werner Gomez MD is Attending Physician. kdr 18:32 No provider procedures requiring assistance completed. Patient did not have IV access ll1 during this emergency room visit. 18:33 Patient has correct armband on for positive identification. Bed in low position. Call ll1 light in reach. Side rails up X 1. Pulse ox on. NIBP on. 18:36 Patient maintains SpO2 saturation greater than 95% on room air. ll1 18:36 Thermoregulation: warm blanket given to patient. ll1 Administered Medications: No medications were administered Intake: 18:35 PO: 0ml; Total: 0ml. ll1 Outcome: 18:02 Discharge ordered by . kdr 18:32 Discharged to home via wheelchair. ll1 18:32 Condition: stable 18:32 Discharge instructions given to patient, family, Instructed on discharge instructions, follow up and referral plans. Demonstrated understanding of instructions, follow-up care. 18:35 Patient's length of stay in the Emergency Department was greater than 2 hours. ll1 Patient's length of stay was extended due to staffing issues within the emergency department. 18:37 Patient left the ED. ll1 Signatures: Dispatcher [employer] EDKina Najera, RN RN Werner Gomez MD MD kdr Garcia, Rubi rg4 Yoni Christensen 3 Alf Vidal, LANI RN ll1 Corrections: (The following items were deleted from the chart) 14:50 14:47 Pulse 75bpm; Resp 16bpm; Pulse Ox 99%; Temp 99.1F; 65.77 kg; Height 5 ft. 5 in.; sv BMI: 24.1; sv 18:30 17:10 Neuro: Reports ll1 ll1 18:30 18:29 Cardiovascular: No deficits noted. ll1 ll1 18:30 18:29 Respiratory: No deficits noted. ll1 ll1 18:30 18:29 GI: No deficits noted. ll1 ll1 18:30 18:29 Musculoskeletal: Circulation, motion, and sensation intact. Capillary refill < 3 ll1 seconds, Range of motion: intact in all extremities, Reports ll1
[2020-11-08 20:34] VITALS: TEMP 99.1
[2020-11-08 20:36] VITALS: BP 143/106; O2SAT 100
== END 2020-11-08 18:37 | disposition home or self-care (01) ==
LOC: ER 14:22
DX: S00.83XA Contusion of other part of head, initial encounter (principal); M25.561 Pain in right knee; M79.605 Pain in left leg; W01.0XXA Fall on same level from slipping, tripping and stumbling without subsequent striking against object, initial encounter; Y93.01 Activity, walking, marching and hiking; Y92.9 Unspecified place or not applicable; I10 Essential (primary) hypertension
CPT/HCPCS: 70450; 72125; 99284

== ENCOUNTER 2021-08-03 20:52 | Emergency (ER) | payer OTHER ==
--- NOTE | 2021-08-03 21:57 | RAD REPORT ---
EXAM DESCRIPTION: Jaylyn Single View08/03/2021 9:41 pm CLINICAL HISTORY: Chest pain COMPARISON: 2018 FINDINGS: The lungs appear clear of acute infiltrate. The heart is mildly enlarged IMPRESSION: No acute abnormalities displayed
[2021-08-03] MEDS ORDERED: ONDANSETRON 4 MG/2 ML VIAL ONE (22:47)
[2021-08-03] MEDS ORDERED: MORPHINE 4 MG/ML SYR ONE (22:47)
[2021-08-03 22:50] LABS: Absolute Lymphocytes (CBC) 1.4 K/uL (0.7-4.9); Basophils % 0.4 % (0-1.3); Hematocrit 34.8 % (36.0-45.0); Lymphocytes % 19.2 % (15.3-44.8); MPV 9.5 fL (7.6-11.3); RBC Red Blood Cell Count 3.65 M/uL (3.86-4.86)
[2021-08-03 22:54] LABS: Protime INR 1.16
[2021-08-03 23:17] LABS: ALT/SGPT 20 U/L (12-78); AST/SGOT 18 U/L (15-37); Albumin 3.2 g/dL (3.4-5.0); Alkaline Phosphatase 87 U/L (45-117); BUN Blood Urea Nitrogen 17 mg/dL (7-18); Bicarbonate 32 mmol/L (21-32); Bilirubin Direct < 0.1 mg/dL (0-0.2); Bilirubin Total 0.2 mg/dL (0.2-1.0); Glucose Level 70 mg/dL (74-106); Potassium 3.4 mmol/L (3.5-5.1); Protein, Total 6.5 g/dL (6.4-8.2); Sodium Level 141 mmol/L (136-145)
[2021-08-04 01:40] LABS: Urine Blood Negative (Negative); Urine Glucose Negative (Negative); Urine Protein Negative (Negative); Urine Specific Gravity 1.015 (1.005-1.030)
--- NOTE | 2021-08-04 02:16 | ER ---
Nurse's Notes [facility] Name: Juanita Mcghee Age: 86 yrs Sex: Female : 1935 Arrival Date: 08/03/2021 Time: 21:00 Bed 2 Private MD: Diagnosis: Fall, Mechanical;Contusion, Abdomen, Flank;Renal Mass, Left Presentation: 08/03 21:05 Chief complaint: EMS states: Toned out to [facility]. Pt reported she had a fall in ea the restroom, complaining of pain in the left lower back, reported she hit the toilet, denied LOC. Care prior to arrival: None. Mechanism of Injury: Fall from standing position. Trauma event details: Injury occurred in the [facility], Injury occurred: [facility] Injury occurred: August 03, 2021. 21:05 Acuity: JANNETTE 3 ea 21:05 Method Of Arrival: EMS: [facility] ea 21:09 Coronavirus screen: At this time, the client does not indicate any symptoms associated ea with coronavirus-19. Ebola Screen: No symptoms or risks identified at this time. Initial Sepsis Screen: Does the patient meet any 2 criteria? No. Patient's initial sepsis screen is negative. Does the patient have a suspected source of infection? No. Patient's initial sepsis screen is negative. Risk Assessment: Do you want to hurt yourself or someone else? Patient reports no desire to harm self or others. Onset of symptoms was August 03, 2021. Trauma Activation: Not Applicable Physician: ED Physician; Name: ; Notified At: ; Arrived At: Physician: General Surgeon; Name: ; Notified At: ; Arrived At: Physician: Radiology; Name: ; Notified At: ; Arrived At: Physician: Respiratory; Name: ; Notified At: ; Arrived At: Physician: Lab; Name: ; Notified At: ; Arrived At: Historical: - Allergies: 21:09 No Known Allergies; ea - PMHx: 21:09 Anxiety; Atrial Fib; Hypertension; neuropathy; ea - Immunization history:: Adult Immunizations unknown. - Immunization history: Last tetanus immunization: unknown. - Social history:: Smoking status: unknown. Screenin:07 Abuse screen: Denies threats or abuse. Nutritional screening: No deficits noted. ea Tuberculosis screening: No symptoms or risk factors identified. Fall Risk None identified. Primary Survey: 21:07 NO uncontrolled hemorrhage observed. A: The patient is alert. Airway: patent. ea Breathing/Chest: Respiratory pattern: regular, Respiratory effort: spontaneous, unlabored. Circulation: Skin color: pink, Skin temperature: warm. Disability Alert. Exposure/Environment: All clothing and personal items were removed. Forensic evidence collection is not deemed to be indicated at this time. Items placed in patient belonging bag. There is no evidence of uncontrolled external bleeding. A warming method has been applied: A warm blanket has been provided to the patient. 22:30 Reassessment Airway Airway Patent Breathing/Chest Respiratory pattern Regular ea Respiratory effort Spontaneous Unlabored Disability Alert. Assessment: 21:10 General: Appears in no apparent distress. Behavior is appropriate for age. Pain: ea Complains of pain in left mid back. Neuro: Level of Consciousness is awake, alert, obeys commands, Oriented to person, place, time. Cardiovascular: Patient's skin is warm and dry. Respiratory: Airway is patent Respiratory effort is even, unlabored, Respiratory pattern is regular, symmetrical. Derm: Skin is pink, warm \T\ dry. 23:00 Reassessment: Patient states feeling better. ch4 08/04 00:00 Reassessment: Patient and/or family updated on plan of care and expected duration. Pain ea level reassessed. Patient is alert, oriented x 3, equal unlabored respirations, skin warm/dry/pink. 01:30 Reassessment: Patient and/or family updated on plan of care and expected duration. Pain ea level reassessed. Patient is alert, oriented x 3, equal unlabored respirations, skin warm/dry/pink. 02:31 Reassessment: Patient and/or family updated on plan of care and expected duration. Pain ea level reassessed. Patient is alert, oriented x 3, equal unlabored respirations, skin warm/dry/pink. 02:41 Reassessment: [facility] contacted for transportation back to [facility] via wheelchair bb van. Vital Signs: 08/03 21:07 BP 129 / 89; Pulse 109; Resp 17; Pulse Ox 98% ; Weight 72.57 kg; Height 5 ft. 4 in. ea (162.56 cm); 22:00 BP 117 / 61; Pulse 76; Resp 18; Pulse Ox 95% ; ea 23:00 BP 110 / 67; Pulse 76; Resp 17; Pulse Ox 95% ; ea 09/18 00:00 BP 122 / 73; Pulse 75; Resp 18; Pulse Ox 98% ; ea 01:40 BP 126 / 78; Pulse 82; Resp 22; Pulse Ox 98% ; ch4 02:54 BP 123 / 71; Pulse 70; Resp 18; Pulse Ox 98% on R/A; ea 08/03 21:07 Body Mass Index 27.46 (72.57 kg, 162.56 cm) ea [place] Coma Score: 08/03 21:07 Eye Response: spontaneous(4). Verbal Response: oriented(5). Motor Response: obeys ea commands(6). Total: 15. 22:00 Eye Response: spontaneous(4). Verbal Response: oriented(5). Motor Response: obeys ea commands(6). Total: 15. 23:00 Eye Response: spontaneous(4). Verbal Response: oriented(5). Motor Response: obeys ea commands(6). Total: 15. 08/04 00:00 Eye Response: spontaneous(4). Verbal Response: oriented(5). Motor Response: obeys ea commands(6). Total: 15. Trauma Score (Adult): 08/03 21:07 Eye Response: spontaneous(1); Verbal Response: oriented(1); Motor Response: obeys ea commands(2); Systolic BP: > 89 mm Hg(4); Respiratory Rate: 10 to 29 per min(4); Susana Score: 15; Trauma Score: 12 ED Course: 21:00 Patient arrived in ED. cf2 21:07 Triage completed. ea 21:08 Arm band placed on right wrist. Patient placed in an exam room, on a stretcher, on ea pulse oximetry. 21:08 Patient has correct armband on for positive identification. Bed in low position. Call ea light in reach. 21:08 Patient maintains SpO2 saturation greater than 95% on room air. ea 21:09 Thermoregulation: warm blanket given to patient. ea 21:11 Kenzie Akers, LANI is Primary Nurse. ea 21:30 Erickson Prieto MD is Attending Physician. [facility] 21:30 Inserted saline lock: 20 gauge in right antecubital area, using aseptic technique. ea Blood collected. 21:41 CXR XRAY In Process Unspecified. EDMS 23:14 Basic Metabolic Panel Sent. ch4 23:53 CT Abd/Pelvis - IV Contrast Only In Process Unspecified. EDMS 23:53 CT Head Brain wo Cont In Process Unspecified. EDMS 23:[address] scan. ch4 08/04 02:31 No provider procedures requiring assistance completed. ea 02:55 IV discontinued, intact, bleeding controlled, No redness/swelling at site. Pressure ea dressing applied. Administered Medications: 08/03 22:33 Drug: morphine 2 mg Route: IVP; Site: right antecubital; ch4 22:33 Drug: Zofran (Ondansetron) 4 mg Route: IVP; Site: right antecubital; ch4 22:51 Follow up: Response: No adverse reaction ea 22:51 Drug: morphine 2 mg Route: IVP; Site: right antecubital; ea 22:51 Follow up: Response: No adverse reaction ea Point of Care Testing: Urine Dip: 08/04 01:39 pH: 7.0; ; Specific [place]: 1.015; Ketones: Negative; Glucose: Negative; Protein: ch4 Negative; Leukocytes: Negative; Nitrite: Negative (-) ; Blood: Negative; Intake: 02:55 PO: 0ml; Total: 0ml. ea Outcome: 02:16 Discharge ordered by [facility] 02:31 Instructed on ea 02:35 Condition: stable ea 02:35 Patient's length of stay was not longer than 2 hours. 03:01 Patient left the ED. ch4 Signatures: Dispatcher [employer] EDMS Magy Franklin RN RN bb Antunez, Elena, RN RN ea Frazier, Celesta cf2 Erickson Prieto MD MD [facility] Opal Beasley RN RN [facility]
--- NOTE | 2021-08-04 02:17 | EDPHYS ---
Physician Documentation [facility] Name: Juanita Mcghee Age: 86 yrs Sex: Female : 1935 Arrival Date: 08/03/2021 Time: 21:00 Bed 2 Private MD: ED Physician Erickson Prieto HPI: 08/03 21:48 This 86 yrs old Female presents to ER via EMS with complaints of Fall Injury. [facility] 21:48 Details of fall: The patient fell from an upright position, while walking, and struck a mh7 tile surface. Onset: The symptoms/episode began/occurred just prior to arrival, today. Associated injuries: The patient sustained left lower back, painful injury. Severity of symptoms: At their worst the symptoms were moderate, earlier today, in the emergency department the symptoms are unchanged, despite EMS interventions. Patient states that she fell at nursing facility while in bathroom she stepped backwards fell hitting her left lower back against a seat that was in a shower. She denies any head trauma or LOC. She denies any symptoms prior to falling including headache, chest pain, abdominal pain, shortness of breath, nausea, vomiting, dizziness, numbness/tingling, or weakness.. Historical: - Allergies: 21:09 No Known Allergies; ea - PMHx: 21:09 Anxiety; Atrial Fib; Hypertension; neuropathy; ea - Immunization history:: Adult Immunizations unknown. - Immunization history: Last tetanus immunization: unknown. - Social history:: Smoking status: unknown. ROS: 21:48 Constitutional: Negative for fever, chills, and weight loss, Eyes: Negative for injury, mh7 pain, redness, and discharge, ENT: Negative for injury, pain, and discharge, Neck: Negative for injury, pain, and swelling, Cardiovascular: Negative for chest pain, palpitations, and edema, Respiratory: Negative for shortness of breath, cough, wheezing, and pleuritic chest pain, Abdomen/GI: Negative for abdominal pain, nausea, vomiting, diarrhea, and constipation, : Negative for injury, bleeding, discharge, and swelling, MS/Extremity: Negative for injury and deformity, Skin: Negative for injury, rash, and discoloration, Neuro: Negative for headache, weakness, numbness, tingling, and seizure, Psych: Negative for depression, anxiety, suicide ideation, homicidal ideation, and hallucinations, Allergy/Immunology: Negative for hives, rash, and allergies, Endocrine: Negative for neck swelling, polydipsia, polyuria, polyphagia, and marked weight changes, Hematologic/Lymphatic: Negative for swollen nodes, abnormal bleeding, and unusual bruising. Exam: 21:48 Constitutional: This is a well developed, well nourished patient who is awake, alert, mh7 and in no acute distress. Head/Face: Normocephalic, atraumatic. Eyes: Pupils equal round and reactive to light, extra-ocular motions intact. Lids and lashes normal. Conjunctiva and sclera are non-icteric and not injected. Cornea within normal limits. Periorbital areas with no swelling, redness, or edema. Neck: Trachea midline, no thyromegaly or masses palpated, and no cervical lymphadenopathy. Supple, full range of motion without nuchal rigidity, or vertebral point tenderness. No Meningismus. Chest/axilla: Normal chest wall appearance and motion. Nontender with no deformity. No lesions are appreciated. 21:48 Respiratory: Lungs have equal breath sounds bilaterally, clear to auscultation and percussion. No rales, rhonchi or wheezes noted. No increased work of breathing, no retractions or nasal flaring. Abdomen/GI: Soft, non-tender, with normal bowel sounds. No distension or tympany. No guarding or rebound. No evidence of tenderness throughout. 21:48 Skin: Warm, dry with normal turgor. Normal color with no rashes, no lesions, and no evidence of cellulitis. MS/ Extremity: Pulses equal, no cyanosis. Neurovascular intact. Full, normal range of motion. Neuro: Awake and alert, GCS 15, oriented to person, place, time, and situation. Cranial nerves II-XII grossly intact. Motor strength 5/5 in all extremities. Sensory grossly intact. Cerebellar exam normal. Normal gait. Psych: Awake, alert, with orientation to person, place and time. Behavior, mood, and affect are within normal limits. 21:48 Cardiovascular: Rate: normal, Rhythm: irregularly irregular, Pulses: no pulse deficits are appreciated, Heart sounds: normal, normal S1and S2, Edema: is not appreciated, JVD: is not appreciated. 21:48 Back: ROM is painful, with flexion, normal spinal alignment noted, CVA tenderness, that is moderate, is noted on the left, vertebral tenderness, is not appreciated, muscle spasm, is not present. Vital Signs: 21:07 BP 129 / 89; Pulse 109; Resp 17; Pulse Ox 98% ; Weight 72.57 kg; Height 5 ft. 4 in. ea (162.56 cm); 22:00 BP 117 / 61; Pulse 76; Resp 18; Pulse Ox 95% ; ea 23:00 BP 110 / 67; Pulse 76; Resp 17; Pulse Ox 95% ; ea 08/04 00:00 BP 122 / 73; Pulse 75; Resp 18; Pulse Ox 98% ; ea 01:40 BP 126 / 78; Pulse 82; Resp 22; Pulse Ox 98% ; ch4 02:54 BP 123 / 71; Pulse 70; Resp 18; Pulse Ox 98% on R/A; ea 08/03 21:07 Body Mass Index 27.46 (72.57 kg, 162.56 cm) ea Susana Coma Score: 08/03 21:07 Eye Response: spontaneous(4). Verbal Response: oriented(5). Motor Response: obeys ea commands(6). Total: 15. 22:00 Eye Response: spontaneous(4). Verbal Response: oriented(5). Motor Response: obeys ea commands(6). Total: 15. 23:00 Eye Response: spontaneous(4). Verbal Response: oriented(5). Motor Response: obeys ea commands(6). Total: 15. 08/04 00:00 Eye Response: spontaneous(4). Verbal Response: oriented(5). Motor Response: obeys ea commands(6). Total: 15. Trauma Score (Adult): 08/03 21:07 Eye Response: spontaneous(1); Verbal Response: oriented(1); Motor Response: obeys ea commands(2); Systolic BP: > 89 mm Hg(4); Respiratory Rate: 10 to 29 per min(4); [place] Score: 15; Trauma Score: 12 MDM: 08/04 02:12 Differential diagnosis: abrasion, closed head injury, contusion, fracture. Data [facility] reviewed: vital signs, nurses notes, EMS record, old medical records, lab test result(s), cardiac enzymes, CBC, electrolytes, urinalysis, EKG, radiologic studies, CT scan, plain films. Data interpreted: Pulse oximetry: on room air is 98 %. Interpretation: normal. Counseling: I had a detailed discussion with the patient and/or guardian regarding: the historical points, exam findings, and any diagnostic results supporting the discharge/admit diagnosis, lab results, radiology results, the need for outpatient follow up, to return to the emergency department if symptoms worsen or persist or if there are any questions or concerns that arise at home. Response to treatment: the patient's symptoms have markedly improved after treatment. 02:16 Patient medically screened. [facility] 08/03 21:45 Order name: Basic Metabolic Panel [facility] 08/03 21:45 Order name: CBC with Diff; Complete Time: 23:06 [facility] 08/03 21:45 Order name: LFT's; Complete Time: 00:14 [facility] 08/03 21:45 Order name: Protime (+inr); Complete Time: 23:06 [facility] 08/03 21:45 Order name: Ptt, Activated; Complete Time: 23:06 [facility] 08/03 21:31 Order name: CXR XRAY; Complete Time: 23:06 08/03 21:45 Order name: Basic Metabolic Panel; Complete Time: 00:14 [facility] 08/03 21:47 Order name: CT Abd/Pelvis - IV Contrast Only [facility] 08/03 21:47 Order name: Troponin (emerg Dept Use Only); Complete Time: 00:14 [facility] 08/03 21:48 Order name: CT Head Brain wo Cont [facility] 08/04 01:40 Order name: Urine Dipstick-Ancillary; Complete Time: 01:47 [facility] 08/03 21:45 Order name: Labs collected and sent; Complete Time: 22:51 [facility] 08/03 21:45 Order name: Urine Dipstick-Ancillary (obtain specimen); Complete Time: 01:58 [facility] Administered Medications: 08/03 22:33 Drug: morphine 2 mg Route: IVP; Site: right antecubital; ch4 22:33 Drug: Zofran (Ondansetron) 4 mg Route: IVP; Site: right antecubital; ch4 22:51 Follow up: Response: No adverse reaction ea 22:51 Drug: morphine 2 mg Route: IVP; Site: right antecubital; ea 22:51 Follow up: Response: No adverse reaction ea Point of Care Testing: Urine Dip: 08/04 01:39 pH: 7.0; ; Specific Tarzan: 1.015; Ketones: Negative; Glucose: Negative; Protein: ch4 Negative; Leukocytes: Negative; Nitrite: Negative (-) ; Blood: Negative; Disposition Summary: 08/04/21 02:16 Discharge Ordered Location: Home [facility] Problem: new [facility] Symptoms: have improved [facility] Condition: Stable [facility] Diagnosis - Fall, Mechanical [facility] - Contusion, Abdomen, Flank 7 - Renal Mass, Left [facility] Followup: [facility] - With: Private Physician - When: 1 - 2 days - Reason: Worsening of condition, Recheck today's complaints, Continuance of care, Re-evaluation by your physician Discharge Instructions: - Discharge Summary Sheet [facility] - Contusion, [id number] [facility] - Fall Prevention in the Home, Adult, [id number] [facility] - Renal Mass [facility] Forms: - Medication Reconciliation Form [facility] - Thank You Letter [facility] - Antibiotic Education [facility] - Prescription Opioid Use [facility] Signatures: Dispatcher [employer] Kenzie Bella, RN Erickson Atkins ea, MD MD [facility] Opal Beasley RN RN ch4
[2021-08-04 03:13] VITALS: O2SAT 98
[2021-08-04 03:15] VITALS: BP 123/71
--- NOTE | 2021-08-04 13:32 | RAD REPORT ---
EXAM DESCRIPTION: CT - Abdomen Pelvis W Contrast - 08/04/2021 6:38 am CLINICAL HISTORY: Blunt trauma;Flank pain TECHNIQUE: Axial computed tomography images of the abdomen and pelvis with intravenous contrast. S agittal and coronal reformatted images were created and reviewed. This CT exam was performed using one or more of the following dose reduction techniques: automated exposure control, adjustment of t he mA and/or kV according to patient size, and/or use of iterative reconstruction technique. COMPARISON: No relevant prior studies available. FINDINGS: Lung bases: Minimal bibasilar subsegmental atelectasis/pleural parenchymal scar. Heart: The heart is mildly enlarged. Coronary artery calcification. ABDOMEN: Liver: Multiple hepatic cysts. An index cyst on the left measures 1.7 cm. Additional subcentimeter hypodensities which are too small to characterize. No follow-up imaging is necessary. Gallbladder and bile ducts: Unremarkable. No calcified stones. No ductal dilation. Pancreas: Mild pancreatic parenchymal atrophy. No ductal dilation. Spleen: Splenic parenchymal calcifications compatible with remote granulomatous organism exposure. Adrenals: Bilateral adrenal calcifications which can be seen in the setting of prior infection or h emorrhage. Kidneys and ureters: 2 cm exophytic cyst at the posterior lateral mid pole on the right. 1.6 cm exo phytic hyperdense lesion at the posterior medial upper pole of the left kidney. This demonstrates mil d enhancement on the 2nd phase. Additional subcentimeter hypodensities bilaterally which cannot be fu lly characterized. No calculi. No hydronephrosis. Stomach and bowel: Moderate stool. No obstruction. No appreciable mucosal thickening. PELVIS: Appendix: The appendix is not definitively visualized. No findings to suggest acute appendicitis. Bladder: Unremarkable. No mass. Reproductive: There has been a hysterectomy. No adnexal cysts or masses are identified. ABDOMEN and PELVIS: Intraperitoneal space: Unremarkable. No free air. No significant fluid collection. Bones/joints: Multilevel spondylosis. Remote right 5th through 8th rib fractures. Remote L1 aleta samuel fracture. No acute fracture. No dislocation. Soft tissues: Unremarkable. Vasculature: Mild atherosclerotic disease. No abdominal aortic aneurysm. Lymph nodes: Unremarkable. No enlarged lymph nodes. IMPRESSION: 1. No evidence for hollow or solid organ injury. 2. 1.6 cm left renal lesion which appears to enhance on the 2nd phase. The possibility of an underl ld solid mass/malignancy cannot be excluded. Renal protocol MR is suggested for further evaluation. 3. Other findings as above. Electronically signed by: Jeanna Emmanuel MD 08/04/2021 12:43 AM CDT Due to temporary technical issues with the PACS/Fluency reporting system, reports are being signed by the in house radiologists without review as a courtesy to insure prompt reporting. The interpreting radiologist is fully responsible for the content of the report.
--- NOTE | 2021-08-04 13:46 | RAD REPORT ---
EXAM DESCRIPTION: CT - Head Brain Wo Cont - 08/04/2021 6:39 am CLINICAL HISTORY: 86 years Female TRAUMA COMPARISON: MRI brain with and without contrast dated November 06, 2020 FINDINGS: Contiguous axial images of the brain were obtained without the administration of intraveno us contrast.This exam was performed according to our departmental dose-optimization program which inc ludes use of Automated Exposure Control, adjustment of the mA and/or kV according to patient size and /or use of iterative reconstruction technique. DLP: 872 mGy*cm FINDINGS: Brain: No acute intracranial hemorrhage. No extra-axial collection. No mass effect or bob iation. Prominence of the sulci and cisterns. Confluent periventricular and subcortical white matte r hypodensity is noted. Vascular calcifications. Ventricles: No hydrocephalus. Globes and orbits: No acute abnormality. Bones: No acute osseous finding Paranasal sinuses: Paranasal sinuses are clear. Mastoid air cells: Well pneumatized. Soft tissues: Within normal limits IMPRESSION: No acute intracranial hemorrhage, hydrocephalus or herniation. Cerebral volume loss and chronic small vessel ischemic changes. Consider MRI brain for further evalua tion. Electronically signed by: Robin Mays DO 08/04/2021 12:24 AM CDT Due to temporary technical issues with the PACS/Fluency reporting system, reports are being signed by the in house radiologists without review as a courtesy to insure prompt reporting. The interpreting radiologist is fully responsible for the content of the report.
== END 2021-08-04 03:01 | disposition home or self-care (01) ==
LOC: ER 20:52
DX: S30.1XXA Contusion of abdominal wall, initial encounter (principal); N28.9 Disorder of kidney and ureter, unspecified; W18.39XA Other fall on same level, initial encounter; Y92.121 Bathroom in nursing home as the place of occurrence of the external cause; I10 Essential (primary) hypertension
CPT/HCPCS: 93005; 85025; 80048; 36415; 85610; 80076; 85730; 81003; 84484; 70450; 74177; 71045; 96375; 96374; 99285; Q9967; J2405

== ENCOUNTER 2021-10-07 00:28 | Emergency (ER) | payer OTHER ==
--- OUTSIDE RECORDS SUMMARY | 2021-10-07 00:31 | XMS REPORT | Clinical Summary ---
:1935 Author Organization [facility] MD [facility] Address [address] [place] [address] Care Team Providers Name Role Phone Sandhya Dumont MD Primary Care Provider MD Andrés Unavailable Rasta Martinez MD Unavailable Rasta Martinez MD Unavailable Sandhya Dumont MD Unavailable Wes Francis NP Unavailable Allergies No known active allergies Medications Medication Sig Dispensed Refills Start End Date Status Date oxybutynin Take 10 mg 0 Active (DITROPAN-XL) 10 mg 24 by mouth hr tablet daily. gabapentin (NEURONTIN) Take 100 mg 0 Active 100 mg capsule by mouth 3 (three) times a day. hydrALAZINE twice 6 Active (APRESOLINE) 10 mg daily. 9 tablet losartan (COZAAR) 100 Take 100 mg 0 Active mg tablet by mouth daily. calcium Take 3 0 Active carbonate-vitamin D3 tablets by (PKEHONHS378+D) 1,500 mouth daily mg - 400 units (600 mg with elemental calcium per breakfast. tablet) per tablet sotalol (BETAPACE) 80 Take 80 mg 0 Active mg tablet by mouth twice daily. rivaroxaban (XARELTO) Take 20 mg 0 Active 20 mg tablet by mouth daily. estradiol (VAGIFEM) 10 INSERT 1 8 tablet 11 Active mcg vaginal TABLET INTO 0 tabletIndications: High THE VAGINA grade squamous TWO TIMES A intraepithelial lesion WEEK(FRIDAY on cytologic smear of AND vagina (HGSIL), Vaginal FRIDAY) high risk human FOR 30 DAYS papillomavirus (HPV) DNA test positive magnesium oxide (MAOX) Take 400 mg 0 Active 400 mg tablet by mouth. 1 potassium chloride Take 1 0 A ctive (KLOR-CON) 20 mEq ER tablet by 1 tablet mouth. metoprolol succinate TAKE 1 0 Active (TOPROL XL) 25 mg 24 hr TABLET BY 0 tablet MOUTH TWICE DAILY hydroCHLOROthiazide Take 12.5 0 Active (HYDRODIURIL) 12.5 mg mg by 1 tablet mouth. clonazePAM (KlonoPIN) 2 Take 1 mg 0 Discontinued mg tablet by mouth 21 (Not Appli cable) daily. ibandronate (BONIVA) every 30 12 09/14/20 Discontinued 150 mg tablet (thirty) 9 21 (Not A pplicable) days. sertraline (ZOLOFT) 50 Take 50 mg 0 Discontinued mg tablet by mouth 21 (Not Appli cable) every morning. 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 of vagina 02/25/2018 Encounters Date Type Specialty Care Team Description 09/14/2021 Office Visit Gynecology Lauren Dumont High grade s quamous intraepithelial lesion on cytologic smear of vagina (HGSIL) (Primary Dx); MD Sandhya Vaginal high ri sk human papillomavirus (HPV) DNA test positive; Moderate vagina l dysplasia; Atrophic vagini tis 09/14/2021 Travel 09/13/2021 Refill Surgical Oncology Jaquan Armenta High gr doris squamous intraepithelial lesion on cytologic smear of vagina (HGSIL); RANDI Vaginal high ri sk human papillomavirus (HPV) DNA test positive 09/13/2021 Refill Surgical Oncology Jaquan Armenta High gr doris squamous intraepithelial lesion on cytologic smear of vagina (HGSIL); PA Vaginal high ri sk human papillomavirus (HPV) DNA test positive 04/06/2021 Procedure visit Gynecology Lauren Dumont Moderate vaginal dysplasia (Primary Dx); MD Sandhya Positive high r isk HPV DNA test of vagina 04/06/2021 Travel 03/22/2021 Orders Only Gynecology Vivian Andrews RN 03/22/2021 Orders Only Gynecology Jaquan Armenta, Moderate vag inal PA dysplasia (Prim barbara Dx) 03/15/2021 Telephone Surgical Oncology Jaquan Armenta PA 03/09/2021 Office Visit Surgical Oncology Lauren Dumont High gr doris squamous intraepithelial lesion on cytologic smear of vagina (HGSIL) (Primary Dx); MD Sandhya Vaginal high ri sk human papillomavirus (HPV) DNA test positive; Moderate vagina l dysplasia; Atrophic vagini tis 03/09/2021 Travel 02/02/2021 Orders Only Infectious Diseases Simon SARS-CoV -2 vaccination MD [place] after 10/07/2020 Surgical History Surgery Date Site/Laterality Comments TUBAL LIGATION 11/17/1958 - 11/16/1959 ELBOW SURGERY 11/17/1964 - boil 11/16/1965 FOOT SURGERY 11/17/1967 - callus 11/16/1968 TOTAL VAGINAL HYSTERECTOMY 11/17/2010 - gaby courtney bladder, had 11/16/2011 bladder surgery BILATERAL SALPINGOOPHORECTOMY BLADDER REPAIR 11/17/2010 - 11/16/2011 Medical History Medical History Date Comments Hypertension Social History Tobacco Use Types Packs/Day Years Used Date Never Assessed Sex Assigned at Date Recorded Not on file Job Start Date Occupation Industry Not on file Not on file Not on file COVID-19 Exposure Response Date Recorded In the last month, have you been in contact with No / Unsure 09/14/2021 11:25 AM CDT someone who was confirmed or suspected to have Coronavirus / COVID-19? 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 Vaginal high risk human papillomavirus (HPV) DNA test positive Moderate vaginal dysplasia Atrophic vaginitis CYTOLOGY WILDLIFE PROTECTOR Routine 09/14/2021 1:43 High grade squamous Resu lts for this INTERPRETATION PM CDT intraepithelial lesion pro cedure are in on cytologic smear of the re sults vagina (HGSIL) section. Vaginal high risk human papillomavirus (HPV) DNA test positive Moderate vaginal dysplasia Atrophic vaginitis PATHOLOGY BIOPSY Routine 04/06/2021 2:26 Moderate vaginal Res ults for this INTERPRETATION PM CDT dysplasia procedure are in the results section. PATHOLOGY BIOPSY Routine 03/09/2021 11:28 High grade squamous Results for this INTERPRETATION AM CDT intraepithelial lesion pro cedure are in on cytologic smear of the re sults vagina (HGSIL) section. Vaginal high risk human papillomavirus (HPV) DNA test positive Moderate vaginal dysplasia CYTOLOGY HPV 16/18 Routine 03/09/2021 11:27 High grade squamou s Results for this GENOTYPING AND HIGH AM CDT intraepithelial lesio n procedure are in RISK POOL on cytologic smear of the re sults vagina (HGSIL) section. Vaginal high risk human papillomavirus (HPV) DNA test positive Moderate vaginal dysplasia Atrophic vaginitis CYTOLOGY WILDLIFE PROTECTOR Routine 03/09/2021 11:27 High grade squamous Resu lts for this INTERPRETATION AM CDT intraepithelial lesion pro cedure are in on cytologic smear of the re sults vagina (HGSIL) section. Vaginal high risk human papillomavirus (HPV) DNA test positive Moderate vaginal dysplasia Atrophic vaginitis after 10/07/2020 Results (ABNORMAL) Cytology HPV 16/18 Genotyping and High Risk Pool (09/14/2021 1:43 PM CDT)Only the most recent of2 resultswithin the time period is included. HPV Type 16 Positive (A) Negative, [facility] Indeterminate , Invalid HPV Type 18 Negative Negative, [facility] Indeterminate , Invalid HPV High Risk Negative Negative, [facility] Non-16/18 Indeterminate , Invalid Informational Points The freddy HPV Test ([facility], [place], [place]) is a qualitative in vitro diagnostic test for the detection of Human Papillomavirus in cervical specimens collected in [facility] or [facility] SurePathTM Preservation Flu id. The test utilizes amplification of target DNA by the Polymerase Chain Reaction (PCR) and nucleic acid hybridization for the detection of 14 high-risk (HR) HPV types in a single analysis. The test sp ecifically identifies types HPV16 and HPV18 while concurrently detecting the other high risk types (31, 33, 35, 39, 45, 51, 52, 56, 58, 59, 66, and 68). The performance characterist ics of this test were validated and determined by the [facility] cytology laboratory. These validation analyses have confirmed the accurate performance of the assay of the manufa cturer s stated limit of detection for the target of the test in various specimen types. The [facility] cytology laborator y is authorized under Clinical Laboratory Improvement Amendments (CLIA) to perform high-complexity testing. The [facility] Department of Pathology is accredited by the [employer] (CAP). Specimen Swab - Vagina, SurePath, Liquid Based Pr eparation Performing Organization Address City/State/ZIP Code Phon e Number [facility] [place] [address] [address] [place] (ABNORMAL) Cytology WILDLIFE PROTECTOR Interpretation (09/14/2021 1:43 PM CDT)Only the most recent of2 resultswithin the time period is included. Gross Description A: [facility] 1 SurePath vial received Specimen Information A. Vagina, SurePath, [facility] Liquid Based Preparation, Swab, Specimen Adequacy Satisfactory for [facility] evaluation Diagnosis Atypical squamous [facility] Electronic ally cells of undetermined signed by Nour significance (ASC-US) MD Sergo on (A) 09/25/2021 at 5 :04 PM HPV Reflex for Lead Cytogenetic Technologist Yes [facility] Informational Points Cervicovaginal cytology is a screening procedure subject to false negatives and false positives. Results are more reliable when a satisfactory sample is obtained on a regular repetitive basis and should [facility] be interpreted together with past and current clinica l data. Some tests reported here may have been developed and performance characteristics determined by [facility]. These tests have not been specifically cleared or approved by the U.S. Food and Drug Administration. Specimen Swab - Vagina, SurePath, Liquid Based Pr eparation Performing Organization Address City/[facility] Phon e Number [facility] [place], [place] [id number] [facility] Pathology Biopsy Interpretation (04/06/2021 2:26 PM CDT)Only the most recent of 2 resultswithin the time period is included. Submitted Moderate vaginal [facility] Clinical History dysplasia [N89.1] Diagnosis A: Upper vagina at 2 o'clock: [facility] Electronically Low grade squamous intraepithelial lesion (VaIN 1). (S ee Comment) signed by Omaira Suarez on BCL/LA 04/11/2021 at 4 :35 PM Comment Immunohistochemical [facility] stains are performed and show the squamous epithelium to be positive for p16 (patchy) and Ki-67 (scattered para-basal nuclei), consistent with the above diagnosis. Gross Description A: [facility] Upper vagina at 2:00: Consis ts of 2 short soft tissue fragments measuring 0.2 and 0.3 cm. Filtered, entirely submitted in A1. JA Disclaimer "Some tests reported here [facility] may have been developed and performance characteristics determined by [facility]. These tests have not been specifically cleared or approved by the U.S. Food and Drug Administration. If applicable, controls were reviewed and showed appropriate reactivity." Specimen Tissue - Vagina Performing Organization Address City/[facility]/ZIP Code Phon e Number [facility] [place] [address] [address] [place] after 10/07/2020 Insurance Payer Benefit Plan / Subscriber ID Effective Phone Address T e Group Dates [facility] MEDICARE [id number] 2018-Prese [address] Medicare HEALTHCARE ADVANTAGE [place] [employer] [id number] Care Teams Appliquer Zigzag Relationship Specialty Start Date End Date Lauren Dumont MD PCP - General 01/17/[address] [place] [id number] Srinath Bowen MD PCP - External Primary Care 11/02/14 [address] [facility] [address] [place] [address] Alberto Martinez MD PCP - External Referring 10/06/14 [address] [place] [address] Alberto Martinez MD PCP - External Follow Up A 10/06/14 [address] [place] [address] Lauren Dumont MD Physician 01/24/[address] [place] [id number] Kalpana Francis, THRESHING DEPARTMENT SUPERVISOR Nurse Practitioner 01/24/[address] [place] [id number]
--- OUTSIDE RECORDS SUMMARY | 2021-10-07 00:32 | XMS REPORT | Continuity of Care Document ---
:1935 Author Organization [facility] t Address [address] [place] [address] Care Team Providers Name Role Phone [phone] Primary Care Physician Unavailable Sandhya Dumont MD Attending Clinician Sandhya DUMONT Attending Clinician Unavailable Geovany BRYAN Attending Clinician Juliana GARIBAY, L Attending Clinician Unavailable Griffin Guallpa MD Attending Clinician GRIFFIN GUALLPA Attending Clinician Unavailable GRIFFIN GUALLAP Attending Clinician Unavailable Simon GARRIDO Attending Clinician Payers Payer Name Policy Type Policy Effective Date Expiration Date Sour ce Number [facility] [id number] 2018 MD Rankin rson MEDICARE 00:00:00 [facility] MEDICARE [id number] 2018-Present [address], [place] [address]Medicare Problems Condition Condition Condition Status Onset Resolution Last Treating Co mments Source Name Details Category Date Date Treatment Clinician Date Other Other Disease Active specified specified 03-09 Chucho rso polyneurop polyneurop 00:00: n athy athy 00 Atrophic Atrophic Disease Active vaginitis vaginitis 7-17 Chucho rso 00:00: n 00 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 00:00: n 00 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-11 Jacques o intraepith intraepith 00:00: n elial elial 00 lesion on lesion on cytologic cytologic smear of smear of vagina vagina (HGSIL) (HGSIL) Positive Positive Disease Active high risk high risk 4-11 Chucho rso HPV DNA HPV DNA 00:00: n test of test of 00 vagina vagina No known No known Disease Unive rs active active ity of problems problems [facility] [place] Allergies, Adverse Reactions, Alerts Allergy Allergy Status Severity Reaction(s) Onset Inactive Treating Comm ents Source Name Type Date Date Clinician NO KNOWN Drug Active Univers ALLERGIE Class ity of S [facility] [place] Social History Social Habit Start Date Stop Date Quantity Comments Source Exposure to Not sure MD Soto SARS-CoV-2 (event) Alcohol intake 2018-10-27 2018-10-27 Current [facility] 00:00:00 00:00:00 non-drinker of [facility] [place] (finding) Sex Ass[birth year] At [birth year] MD Hanna on 00:00:00 00:00:00 Smoking Status Start Date Stop Date Source Never smoker [facility] Medications Ordered Filled Start Stop Current Ordering Indication Dosage Frequency Signature Comments Components Source Medication Medication Date Date Medication? Clinician (SIG) Name Name oxybutynin 2020-11 Yes 10mg Take 10 mg M D (DITROPAN-X 0-29 by mouth Chucho rso L) 10 mg 24 12:31: daily. n hr tablet 44 gabapentin 2020-11 Yes 100mg Take 100 MD (NEURONTIN) 0-29 mg by Anderso 100 mg 12:31: mouth 3 n capsule 44 (three) times a day. losartan 2020-11 Yes 100mg Take 100 MD (COZAAR) 0-29 mg by Anderso 100 mg 12:31: mouth n tablet 44 daily. calcium 2020-11 Yes 3{tbl} Take 3 MD carbonate-v 0-29 tablets by An derso itamin D3 12:31: mouth n (PBINDOBF21 44 daily with 0+D) 1,500 breakfast. mg - 400 units (600 mg elemental calcium per tablet) per tablet sotalol 2020-11 Yes 80mg Take 80 mg MD (BETAPACE) 0-29 by mouth Patel so 80 mg 12:31: twice n tablet 44 daily. rivaroxaban 2020-11 Yes 20mg Take 20 mg MD (XARELTO) 0-29 by mouth Jacques o 20 mg 12:31: daily. n tablet 44 clonazePAM 2020-2020- No 1mg Take 1 mg M D (KlonoPIN) 03-09 by mouth Chucho rso 2 mg tablet 10:42: 00:00 daily. n 34 :00 sertraline 2020- No 50mg Take 50 mg MD (ZOLOFT) 50 03-09 by mouth And erso mg tablet 10:42: 00:00 every n 34 :00 morning. rivaroxaban 0 Yes 20mg Take 20 mg Univers 20 mg 4-05 by mouth. ity of tablet 19:28: [address] rivaroxaban 2020-0 Yes 20mg Take 20 mg Univers 20 mg 4-05 by mouth. ity of tablet 19:28: [address] hydroCHLORO 2020-0 Yes 12.5mg Take 12.5 MD thiazide 3-22 mg by Anderso (HYDRODIURI 00:00: mouth. n L) 12.5 mg 00 tablet hydroCHLORO 0 Yes 12.5mg Take 12.5 Univers thiazide 3-22 mg by ity of 12.5 mg 00:00: mouth [place] tablet 00 every Medical morning. Branch hydroCHLORO 2020-0 Yes 12.5mg Take 12.5 Univers thiazide 3-22 mg by ity of 12.5 mg 00:00: mouth [place] tablet 00 every Medical morning. Branch magnesium 2020-0 Yes 400mg Take 400 MD oxide 3-16 mg by Anderso (MAOX) 400 00:00: mouth. n mg tablet 00 magnesium 2020-0 Yes 400mg Take 400 Uni vers oxide 400 3-16 mg by ity of mg (241.3 00:00: mouth 2 [place] mg 00 (two) Medical magnesium) times Branch tablet daily. magnesium 2020-0 Yes 400mg Take 400 Uni vers oxide 400 3-16 mg by ity of mg (241.3 00:00: mouth 2 [place] mg 00 (two) Medical magnesium) times Branch tablet daily. oxybutynin 2020-0 Yes Univers 10 mg 24 hr 3-01 ity of tablet 00:00: [address] oxybutynin 2020-0 Yes Univers 10 mg 24 hr 3-01 ity of tablet 00:00: [place] 00 Medical Branch clonazePAM Yes .5mg Take 0.5 Uni vers 0.5 mg 2-23 mg by ity of tablet 00:00: mouth [place] 00 daily. Medical Branch clonazePAM Yes .5mg Take 0.5 Uni vers 0.5 mg 2-23 mg by ity of tablet 00:00: mouth [place] 00 daily. Medical Branch losartan Yes 100mg Take 100 Univ ers 100 mg 1-28 mg by ity of tablet 00:00: mouth [place] 00 every Medical morning. Branch losartan Yes 100mg Take 100 Univ ers 100 mg 1-28 mg by ity of tablet 00:00: mouth [place] 00 every Medical morning. Branch potassium Yes 1{tbl} Take 1 MD chloride 1-14 tablet by Jacques o (KLOR-CON) 00:00: mouth. n 20 mEq ER 00 tablet potassium Yes 1{tbl} Take 1 Univ ers chloride 20 1-14 tablet by ity of mEq tablet 00:00: mouth [place] 00 every Medical morning. Branch potassium Yes 1{tbl} Take 1 Univ ers chloride 20 1-14 tablet by ity of mEq tablet 00:00: mouth [place] 00 every Medical morning. Branch metoprolol 2019-11 Yes TAKE 1 MD succinate 2-10 TABLET BY Patel harrison (TOPROL XL) 00:00: MOUTH n 25 mg 24 hr 00 TWICE tablet DAILY estradiol Yes Vaginal INSERT 1 M D (VAGIFEM) 06-20 high risk TABLET And erso 10 mcg 00:00: human INTO THE n vaginal 00 papillomavi VAGINA TWO tablet zainab (HPV) TIMES A DNA test WEEK( positive AND FRIDAY) FOR 30 DAYS hydrALAZINE Yes twice MD (APRESOLINE 5-20 daily. Jacques o ) 10 mg 00:00: n tablet 00 ibandronate No every 30 M D (BONIVA) 309-14 (thirty) Jacques o 150 mg 00:00: 00:00 days. n tablet 00 :00 gabapentin 2017-11 Yes 200mg Take 2 Univ ers 100 mg 2-14 capsules ity of capsule 00:00: [place] (three) Medical times Branch daily. gabapentin 2017-11 Yes 200mg Take 2 Univ ers 100 mg 2-14 capsules ity of capsule 00:00: [place] (three) Medical times Branch daily. gabapentin 2017-11 Yes 200mg Take 2 Univ ers 100 mg 2-14 capsules ity of capsule 00:00: [place] (three) Medical times Branch daily. Vital Signs Vital Name Observation Time Observation Value Comments Source WEIGHT 2021-04-06 13:09:00 67.4 kg WEIGHT 2021-04-06 13:09:00 67.4 kg Systolic blood 2021-02-19 19:31:00 114 mm[Hg] Univer sity of pressure [facility] Diastolic blood 2021-02-19 19:31:00 74 mm[Hg] Unive rsity of [facility] Heart rate 2021-02-19 19:31:00 105 /min [facility] Oxygen saturation in 2021-02-19 19:31:00 95 /min [facility] Arterial blood by [facility] Pulse oximetry Branch Systolic blood 2021-09-14 16:31:00 152 mm[Hg] pressure Diastolic blood 2021-09-14 16:31:00 84 mm[Hg] MD Aby schneider pressure Heart rate 2021-09-14 16:31:00 61 /min MD Patel rojas Body temperature 2021-09-14 16:31:00 36.61 Kalli MD Yvette harris Respiratory rate 2021-09-14 16:31:00 18 /min MD Yvette hoodon Body weight 2021-09-14 16:31:00 67.3 kg MD Patel rojas BMI 2021-09-14 16:31:00 26.29 kg/m2 MD Patel rojas Oxygen saturation in 2021-09-14 16:31:00 97 /min MD Soto Arterial blood by Pulse oximetry Procedures Procedure Date / Time Performed Performing Clinician Sour e CYTOLOGY SANDING LINE OPERATOR INTERPRETATION 2021-09-14 18:43:00 Falguni Dumont MD CYTOLOGY HPV 16/18 GENOTYPING 2021-09-14 18:43:00 Sofya Dumont MD AND HIGH RISK POOL PATHOLOGY BIOPSY 2021-04-06 19:26:00 Falguni Dumont MD son INTERPRETATION PATHOLOGY BIOPSY 2021-03-09 16:28:00 Falguni Dumont MD Patel son INTERPRETATION CYTOLOGY SANDING LINE OPERATOR INTERPRETATION 2021-03-09 16:27:00 Falguni Dumont MD CYTOLOGY HPV 16/18 GENOTYPING 2021-03-09 16:27:00 Sofya Dumont MD AND HIGH RISK POOL Plan of Care Planned Activity Planned Date Details Comments Source Future Scheduled Test 1947 00:00:00 COVID-19 Vaccination MD Soto (1) [code = COVID-19 Vaccination (1)] Encounters Start End Encounter Admission Attending Care Care Encounter Source Date/Time Date/Time Type Type Clinicians Facility Department ID 2021-09-14 2021-09-14 Outpatient ASTER DUMONT LI MDA [id number] 11:27:30 11:27:30 FALGUNI rivera 2021-04-06 2021-04-06 Outpatient ASTER DUMONT LI MDA [id number] 12:37:49 17:10:43 FALGUNI rivera 2021-03-09 2021-03-09 Outpatient ASTER DUMONT LI MDA [id number] 10:32:45 10:32:45 FALGUNI rivera 2021-02-19 2021-02-19 Office Saloni [facility] [id number] Univers 14:22:08 15:00:51 Visit Soren Parr [id number] [facility] [id number] [facility] Professio [phone] Fl dical nal 092 [facility] 2021-02-19 2021-02-19 Outpatient SOREN RAMIREZ [facility] [id number] Univers 14:20:00 14:20:00 SOREN GUALLPA [id number] [facility] 2021-02-19 2021-02-19 Outpatient SOREN RAMIREZ [facility] [id number] Univers 14:20:00 14:20:00 SOREN GUALLPA [facility] 2021-02-16 2021-02-16 Outpatient SOREN RAMIREZ [facility] [id number] Univers 14:40:00 14:40:00 SOREN GUALLPA [id number] [facility] 2021-02-16 2021-02-16 Outpatient SOREN RAMIREZ [facility] [id number] [facility] 14:40:00 14:40:00 SOREN GUALLPA [facility] 2020-08-23 2020-08-23 Outpatient ASTER DUMONT MDA MDA [id number] 10:20:30 10:20:30 FALGUNI rivera 2020-07-14 2020-07-14 Outpatient ASTER DUMONT MDA MDA [id number] 00:00:00 00:00:00 FALGUNI rivera 2019-06-29 2019-06-29 [facility] [id number] 00:00:00 00:00:00 Soren Parr [id number] [place] [id number] Professio [phone] [address] 2019-06-29 2019-06-29 [place] Saloni [facility] [id number] [facility] 00:00:00 00:00:00 Soren Parr [id number] [facility] [id number] Mayda simmons Professio [phone] [address] Results Test Description Test Time Test Comments Results Result Comments Source Cytology SANDING LINE OPERATOR Interpretation 2021-09-25 23:04:46 Test Item Value Reference Range Interpretation Comme nts Gross l0vylJVoFVEiqVTKCRirCLlchrNaHCGnjUKqR4SboexoBFowXB1jOR4drCayoQMwrGQnZF0UBHZjZfMz DJJmmNQzdzRtKvKtBEXusBRwgFR4VCSlRW8tvabiYQueDQswCEQkngU7GJQjyYXlB3FlUVYgJC8dunhf KZK1EEobzL1owwVQXctlLn1niYIbiRhgWvToPdXl FIIiSVDkCCRulWceLDSoUIe7iT3JMgihN88ay7B6Wvb Description 4VMIiWRPjC2OxQJ6sIVOgeNIhS96WVarhOEF7VCYILqavDBOkEC7Pz1zfTOIitEQdYLY7TFpqzEUxJKN lAKRpNXw6FBSmUDeauCUkJX4gpErcQvinhXisw3VnbWMnFPltYRZdWLJjTDgfBBCkRK3FYyEiCOLwDDW 1BPJzXHd9KBl2KB5HDjAwDHHeCGm7BmWzHLLhQJj 3ZZvhSI9ACUe6KyIjLbR5CKR4FUT8LLHfHWLrOpZcFY (test code = CxGHPgXNxaGSaxvpXkRIBnRFAfOSpgWnilMOzxV97pwTegmE2fIqchvcCsSJN7WZHummUOVwzpcZIfdm lteHufZrWweFBfFoCsNNuemIIjiAOrCWwujfAsaefoIQIGAlxzhIZvrDgmYuXnHzRyOHZsCZK8dxTZNC QsIXSvNJlkhrPrLAr5RVMIUnnedHhtThDbzXTkWt JiejC7ODHbyYQsRVK9QQ8sWVVeshodXCUtWSIgZWD0B [id number]) PvtjQ36mWEaHZRiORSlzJHmcXhpgKOswzGPZsxopB6dXfUze2qmoMx1PTQGPpigzVLzysgesxN8IEJhy 8exiRztt8VwwDXsPR5daKngaG8tArBrAvMRDs9= Specimen d6thnVChHHPecEYiQsWySUGvHVNsj6qhBORiwIElXkJaGbImIdIdOzlnzHJlHBAyRyTdh6sae949aRYy l5aiZAYdQfY8zRAiCDYchSVkH172AWOuKJfiu7qsu6UyWKIliGLwh7J6DLBJxzgygNq6d3stFcPmQh2s sTQJt8KmkJPvNW9pmof1cVofL61lx9C5HydjE5hv NRAyFJOtV0OeGB8vFDKdOeo5VJD4LVI3WKNlBOVeB6G Information fGS0tKYDmcXJwHSheqdVhMKrmrmRjmbEfJyg1CSW6TLW9BLQnWUAjQQlcpiYlbzMtSyr2QUPsIVU9AYH zMCB1RUzndrJrcpWuWmb5SGHwW842POO8pGtob3ylRTI6CISjHGUwIyOuRe4msNHfI716SUSfIQXXBZG dnKe7UPYkvlFdebQogAASe631A874YAUxOEObSIl 0XoUWWAHqusv7bQ2gDTJdra68lDkbhiUeo10cbSKgZB (test code = vjRrAfBPIxVfvalCFdw79lFBynsZw1o5skmjIwdUFPSJSplkd3yI0rB169INI4MQTnNTj5RVywkGMwlL 7nkRX7ZSnaDFZaIHjnOipjYgEdDYdsDBVfZJgyeGUcm4L2nJunKYrykeFiQKowJONfbhWDIBr3z8eqZy dcnpC1jVEbu3P8aTcbSNdfniPdCgfbiwR2YVZjk5 ScQYYti5VqWOPuv8znMJ48qQasvrLdELPayTExm0Ifd 23108) F4cTHS9eWvjrhecm30nfHRfWD62hBtdgtGaNVImeRBpJgXwZHpfKCQfGBFzOABpXAJaOLMaHHzkpDVaa M7tjCL5ALufFHdwELAkAQqeA309UDK0SIZdMJa1FAspbKDieO7fnKW0WWz6VIAoCbSxFuoaQsIdVHciQ KRaGZdliTIbq7X6cVpyIAqxryNxGTfpMFRgqwUAN Au6w4fwDNedkyH6zQZsy8R6mJbpOGksavNuWYkgkpDg NQQyt3VuPMRkj0XxRDKcp1vaFD35aLpzytFlCNSbcFZyb3EgpN4mWMP3eNlvuhUjYGVhMZe6WYijgQGi eM3tiKR1ZLe3OTQzZNIcHrxcOvMrZQnnIGHoHFawaHHio7K3oBmjJRftkqXmItaiSKKwzxAQQwg8p4jw HWZkh90ouANuWYsuFIUapeMdpgq9t4svFKSfs66f eHQwXGxpMzYwXHJpMzYwXHNiMTAwXHNhMTAwXHNsMCB DtQ0qw3Q5j4SwG452RORjOQPpuGLGNLJFV632BHAvMYYpTpQrGvEeUMAMH0NSA354CFYdEPDfxBzgTLV gBKCbDMutDF5fwJDynRD6jSxwQ8IyMvl5nRfrDnBqKSfmYJNnqZ0tA880FMIgMXwybIcoE8L2LJKrxYi uh4XhGPcuHPSdhQ5sG265EHGyLRerLkZgDsXhRVj iVPvkkLWbPVDiN546SCDfMSbqyvG1oOOeBsIcYfZsGF c5tZDrxOg4HFmdhZeqUIR2ZDC3Qgm0Z3a8gGV4TnRpfAr9Emj3UYZ5AKj7JOv2yJI1NHEtmLf8GotrCF T8TJGpMBj2yFc6YZXba0OcLACaQRrmfWKfEOUyLn6kvGG4mUNbD589PSQbAHdttxO5jOYcCuLqSiKqVw r7PQDuVYZ0OZHwLAOpPqbnjyNjR6OhYJDvDPpmUm 28kB8yHW1fWEEnjq09qInlmtUpMCVgIBn8OHvfRIynq dO8YRPbGeOsujFrAoOjtaMzKKLoMSIdFcVawEDgld3Nd6Tcs7GrCu1fsUm6i3vpdjHwQDHqMMMzpBXdE Xy3d5avnsGyMZFmC6Sai76eK296WVYjTrElCtToXrWlQOZXfKVbb9BfyXIjH107JNQiIfJjlVGIEAKrF EIaMUp2y8kjzuN1SJIhO1W7WDkECAbmQDXna2RsW 760ZEIcJzhhezIGu58kMN67G088v7mfSBRqnkTvmDaX iqgkn6kmR413GHUntEVhkrYeUyAkLGZpdMXfoYM0FNHcNP1uzofjQXlmUZsfRCBcklQ2PNYjxAOsP2Aa YMXfNC8psfrkEEN7DEdwYXDoMKN4KcIvTLCqd5Zpcww7EqVqvs8ymv24FOP3m2MxaIlyEEI4ODX1BeHe De2hvYAvVWJaTI8wDqKyrUGcWQGibt37bWahCXhv zgNqhQ5zCuNcGOFyuHLmCHFdAJ4vdENdPTVvcA7dgvh gTQKrThKpstdhAJYxrNpljsTyWq1ohTjoPUR4ZEywW2htgR6qCpJ6SEayY4lfbL6bDRx3IOhjhAG8GYV dpZ7cHR0zifeyn2zdMQovBQmtLFSuzpL7kyU0ECNxqRNcH1ByjV2dSAAoEJ4vigksf8ylGOW4WLmrKGP yXAZ9FaLdFHVrr3Ldwcs2CtKqx5JfgVCpGOjhA76 hc677FOLarvOjG9wcqTYtcignyYQeohjuDEfoorW3MQ CjhcYulQwtyR6qNyRiTbKcCJevAB6rYCOxI0ttpNYdSKHdLCCtD2bdHqPbwX6gqQoyEYkuNdNeAqTqKC DBBzEWMDxlyiLfVHK7xeSGHNSmDPWXrDV4eXSkOiGuWKWjAINfdEOuTGVdy59dABX2YRZfEBtkFMY8 Specimen Satisfactory for evaluation Adequacy (test code = 9847) Diagnosis Atypical squamous cells of undetermined significance ( ASC-US) A (test code = 9849) HPV Reflex Yes for Elastic Cutter (test code = 9974) Informationa i1gmyTQaBWIzfDHuUfKjKOHxYQQsd9eyGXTnqCJkTeRvTyOoEcUfGawluPMkYAYoJpJih7mbx229sLWb d1imWGRwOrX0kVKuCNYbbMBgF460DZXbBCalh8vki8TaYQXggDOxo4J2RRYVJWcaJNTZCNr2d6hxImKm GlD5fNHkJTvqE6vmnvKgbMXeSSKjUTr7tB56ZLPx wD5rnJXfYTrhceDiUsA2XTnrTBIoHlO9BNZmeOPtFOD l Points wX4thCRXqQCtdROPsILafeIFuRQV1gObro1G0cIYirRBylVgpKeHdRxZfAbTDo8WpFPm9mSmsJ0MdQTW oIdG9gNByEKNtXUlpQIHsGJAznnP6zY90UUxysfB3fYGid2Nel67in610sL6brPKxFHJ9KETxMHNbeJZ wIZIgGDL1TPZcdVWgT3lzTGVcCE2bwhioHYjeUFi yXVQjrPI8TKQkjBPbV3TdIGBbHZjvBYYyrug6TaDwAh (test code = 1snGWodJydTUtca9ykb1upiZTaZsp6FTXhYjFbJqfeUMwrg7Qog3ixAOPsdd6iESH6fAAgnFoem9F8hE IgLITzqPLowfOhUGGtCqV2TIluJI9uny18CWMqCJN5zb3cyEVfgGhwroXdzUDnZUgzK4MsRDJvf407NE BjA3YdMZVov9M9clMcBsOeAZUoePP3etR9PXMjOJ z8tNGyjdZ3reOusPPcJ3thtA5sNTQeFN8ybtvyu4rfF 9836) XonTEcdFACknKD6xcB2RQVbyJHpH0LjqA5cKFKsKEqeBBZkpdx6AhPkVf5gxCDkbVejXSxuKhcrYRocY QSehhRzniIyhRmxJIUtRDVdNOrrXVGqVDkhKYAbTBMtAxRsbTfoeJpqcQ3hWdEuOrOmGZquLR5aSECwJ 2tjyPSyEEIpUYWjX8kkWzTuwD1upKciKBwwgaT1R QhaZ8Xczfowy7QoF3pkUMniK8w9v7rdI4oaqFAjPEUo H8BxNK2yztlqrZUvY0CzzBOvTAS1BjzxE8KriI1iJySec6WngrJxAABfghFoMMTiRMZoSLgqENGgj7Yj bMn2DNLkAJXok9BkhUQeFQHcVE7hakAzmlGtsKMzaAVto5iowuLyGDIesUpzGkPcpD6osXHgUQ9pyZXu oQWcv6R2OSczZKBoh76gDITmXUe4mJLrYUNgqZL6 iRQrqhEeHuDikCMdTK4eFZUqr2GjJUGaTMAxnoXwktY sWCYlOEX5m8jzcQxywuG2iMYcEBOvr6SeAH2mHGJ8ynVezhYmI1flnotiAMlnVIV6KN7aEGLrliIQj56 iLRCyp6WqOKQgyW5nuXWiABqimxElxER5XMzwhiGoEdUrggXuGZUwlC7eSQYiBJ9nJFXkicPmhl3xydP uKQXgBTVzD5NhwbvrjQspdjNoCUVfes2pbiNnMNF 8AZWLBJ7IRXPcARLki28aZGVoaEcviO2rnHPjztGlJH Cdl6YgwQ2hpRMNMGCcU1thVN5rEWcbp1LduBNjhHKmyOH8FYChl8JvZzQcfrWryGRkoYOeD5ZggEdlM0 bqTYNaRJHgqzPytUTdy6GzLCArxRI5qVXxFF8WXhPZq25hJBKlWFAEhqTbCTIxfUxwkTB2qeV7dG6fYc MflVbabH8gTcPgPzWmAbloOE1pELYjT4qruYHwIPXyNLQtC2mzDdBliR2txKbfUbyrsjBrRPLjbe1= Lab Abnormal Interpretati on (test code = 86831-8) [facility] HPV 16/18 Genotyping and High Risk [id number] 20:57:34 Test Item Value Reference Range Interpretation Comments HPV Type 16 (test code Positive Negative, A = 9853) Indeterminate, Invalid HPV Type 18 (test code Negative Negative, = 9854) Indeterminate, Invalid HPV High Risk Negative Negative, Non-16/18 (test code = Indeterminate, 9855) Invalid Informational Points The freddy HPV Test (test code = 9852) ([facility], [place], [place]) is a qualitative in vitro diagnostic [...] test were validated and determined by the [facility] cytology laboratory. These validation analyses have confirmed the accurate performance of the assay of the professional services manager s stated limit of detection for the target of the test in various specimen types. The [facility] cytology laboratory is authorized under Clinical Laboratory Improvement Amendments (CLIA) to perform high-complexity testing. The [facility] Department of Pathology is accredited by the [employer] ([employer]). Lab Interpretation Abnormal (test code = 63197-4) MD Soto
--- NOTE | 2021-10-07 02:55 | EDPHYS ---
Physician Documentation [facility] Name: Juanita Mcghee Age: 86 yrs Sex: Female : 1935 Arrival Date: 10/07/2021 Time: 00:35 Bed 7 Private MD: ED Physician Erickson Prieto HPI: 10/07 00:45 This 86 yrs old Female presents to ER via EMS with complaints of Fall Injury. cp 00:45 Details of fall: The patient fell from an upright position, while walking. Onset: The cp symptoms/episode began/occurred last night. Associated injuries: The patient sustained injury to the head, contusion, swelling, tenderness. Patient reports losing balance while walking in bedroom causing fall earlier this evening and then again this morning. Historical: - Allergies: 00:44 No Known Allergies; lp1 - Home Meds: 00:44 Caltrate 600 + D 600 mg (1,500 mg)-800 unit Oral chew twice a day [Active]; Centrum lp1 Silver 0.4-300-250 mg-mcg-mcg Oral tab daily [Active]; clonazepam 1 mg Oral tab 1 tab 2 times per day [Active]; duloxetine 30 mg Oral cpDR 1 cap once daily [Active]; gabapentin 100 mg Oral cap 3 times per day [Active]; hydralazine 10 mg Oral tab 1 tab 2 times per day [Active]; ibandronate 150 mg Oral tab 1 tab once moly [Active]; losartan 100 mg Oral tab 1 tab once daily [Active]; oxybutynin chloride 10 mg Oral tr24 2 tabs in am and 1 tab at night [Active]; Potassium Chloride Oral 2 times per day [Active]; sotalol 80 mg Oral tab 1 tab 2 times per day [Active]; Xarelto 20 mg Oral tab 1 tab once daily [Active]; - PMHx: 00:44 Anxiety; Atrial Fib; Hypertension; neuropathy; lp1 - PSHx: 00:44 hysterectomy; lp1 - Immunization history: Last tetanus immunization: unknown. - Social history:: Smoking status: Patient denies any tobacco usage or history of. ROS: 00:50 Constitutional: Negative for body aches, chills, fever, poor PO intake. cp 00:50 Eyes: Negative for injury, pain, redness, and discharge. cp 00:50 Neck: Negative for stiffness. 00:50 Cardiovascular: Negative for chest pain. 00:50 Respiratory: Negative for cough, shortness of breath, wheezing. 00:50 Abdomen/GI: Negative for vomiting, diarrhea, constipation. 00:50 Back: Negative for pain at rest, pain with movement. 00:50 Neuro: Negative for altered mental status, dizziness, headache, loss of consciousness, numbness, syncope, weakness. 00:50 All other systems are negative. Exam: 00:55 Constitutional: The patient appears in no acute distress, alert, awake, cp non-diaphoretic, non-toxic, well developed, well nourished. 00:55 Head/face: Noted is ecchymosis, that is mild, of the chin, swelling, that is mild, of cp the chin and right baptism, tenderness, that is mild, of the chin. 00:55 Eyes: Periorbital structures: appear normal, Pupils: equal, round, and reactive to light and accomodation, Extraocular movements: intact throughout, Sclera: no appreciated abnormality, Lids and lashes: appear normal, bilaterally. 00:55 ENT: External ear(s): are unremarkable, Ear canal(s): are normal, clear, TM's: dullness, bilaterally, Nose: is normal, Mouth: Lips: moist, Oral mucosa: moist, Posterior pharynx: Airway: no evidence of obstruction, patent. 00:55 Neck: C-spine: vertebral tenderness, is not appreciated, crepitus, is not appreciated, ROM/movement: is normal, is supple, no range of motions limitations, pain, that is mild, with any movement, Meningeal signs: are not present, nuchal rigidity, is not appreciated. 00:55 Chest/axilla: Inspection: normal, Palpation: is normal, no crepitus, no tenderness. 00:55 Cardiovascular: Rate: normal. 00:55 Respiratory: the patient does not display signs of respiratory distress, Respirations: normal, no use of accessory muscles, no retractions, labored breathing, is not present, Breath sounds: are clear throughout, no decreased breath sounds, no stridor, no wheezing. 00:55 Abdomen/GI: Inspection: abdomen appears normal, Palpation: abdomen is soft and non-tender, in all quadrants. 00:55 Back: pain, is absent, ROM is normal, vertebral tenderness, is not appreciated. 00:55 Musculoskeletal/extremity: Extremities: all appear grossly normal, with no appreciated pain with palpation. 00:55 Neuro: Orientation: to person, place \T\ time. Mentation: is normal, Motor: moves all fours, strength is normal, Sensation: no obvious gross deficits. Vital Signs: 00:38 BP 179 / 92; Pulse 67; Resp 18; Temp 97.7(TE); Pulse Ox 98% on R/A; Weight 65.77 kg lp1 (R); Height 5 ft. 4 in. (162.56 cm); Pain 5/10; 01:51 BP 150 / 76; Pulse 69; Resp 18; Pulse Ox 100% on R/A; lp1 03:25 BP 149 / 76; Pulse 70; Resp 18; Pulse Ox 98% on R/A; lp1 00:38 Body Mass Index 24.89 (65.77 kg, 162.56 cm) lp1 [place]ana Coma Score: 00:39 Eye Response: spontaneous(4). Verbal Response: oriented(5). Motor Response: obeys lp1 commands(6). Total: 15. Trauma Score (Adult): 00:39 Eye Response: spontaneous(1); Verbal Response: oriented(1); Motor Response: obeys lp1 commands(2); Systolic BP: > 89 mm Hg(4); Respiratory Rate: 10 to 29 per min(4); [place]an Score: 15; Trauma Score: 12 MDM: 00:45 Patient medically screened. cp 01:00 Differential diagnosis: closed head injury, contusion, fracture, multiple trauma. cp 02:53 Data reviewed: vital signs, nurses notes, radiologic studies, CT scan. cp 02:53 Counseling: I had a detailed discussion with the patient and/or guardian regarding: the cp historical points, exam findings, and any diagnostic results supporting the discharge/admit diagnosis, radiology results, to return to the emergency department if symptoms worsen or persist or if there are any questions or concerns that arise at home. ED course: VSS. Radiology studies negative for acute trauma. Will discharge to home for continued monitoring. 10/07 00:37 Order name: CT Head C Spine cp 10/07 00:37 Order name: CT Facial Bones W/O Con cp Administered Medications: No medications were administered Disposition: 03:00 Chart complete. cp 06:56 Co-signature as Attending Physician, Erickson Prieto MD. [email or web address] Disposition Summary: 10/07/21 02:54 Discharge Ordered Location: Home cp Problem: new cp Symptoms: have improved cp Condition: Stable cp Diagnosis - Fall on same level, unspecified cp - Contusion of unspecified part of head, initial encounter cp Followup: cp - With: Private Physician - When: 2 - 3 days - Reason: Recheck today's complaints Discharge Instructions: - Discharge Summary Sheet cp - Facial or Scalp Contusion cp - Hematoma cp - Fall Prevention in the Home, Adult cp Forms: - Medication Reconciliation Form cp - Thank You Letter cp - Antibiotic Education cp - Prescription Opioid Use cp Signatures: Dispatcher [employer] EDIrene Perry RN RN lp1 David Carmichael PA PA cp Erickson Prieto MD MD [id number]
--- NOTE | 2021-10-07 02:55 | ER ---
Nurse's Notes [facility] Name: Juanita Mcghee Age: 86 yrs Sex: Female : 1935 Arrival Date: 10/07/2021 Time: 00:35 Bed 7 Private MD: Diagnosis: Fall on same level, unspecified;Contusion of unspecified part of head, initial encounter Presentation: 10/07 00:35 Acuity: JANNETTE 2 lp1 00:37 Chief complaint: EMS states: called for patient who had 1st fall about 2300 tonight, lp1 fell again, reports falling backwards and hitting back of head; Denies LOC; Patient arrives to ED with bruising to face, cannot recall what she hit. Care prior to arrival: None. Mechanism of Injury: Fall from standing position. Trauma event details: Injury occurred in the [facility], Injury occurred: at home. Injury occurred: October 06, 2021 Injury occurred at: 23:00. 00:37 Method Of Arrival: EMS: [facility] lp1 00:38 Coronavirus screen: At this time, the client does not indicate any symptoms associated lp1 with coronavirus-19. Ebola Screen: No symptoms or risks identified at this time. Initial Sepsis Screen: Does the patient meet any 2 criteria? No. Patient's initial sepsis screen is negative. Does the patient have a suspected source of infection? No. Patient's initial sepsis screen is negative. Risk Assessment: Do you want to hurt yourself or someone else? Patient reports no desire to harm self or others. Onset of symptoms was October 06, 2021 at 23:00. Trauma Activation: Alert Physician: ED Physician; Name: RANDI Zuniga; Notified At: 00:25; Arrived At: 00:25 Physician: General Surgeon; Name: N/A; Notified At: 00:25; Arrived At: Physician: Radiology; Name: Marley Moreno; Notified At: 00:25; Arrived At: 00:39 Physician: Respiratory; Name: N/A; Notified At: 00:25; Arrived At: Physician: Lab; Name: N/A; Notified At: 00:25; Arrived At: Historical: - Allergies: 00:44 No Known Allergies; lp1 - Home Meds: 00:44 Caltrate 600 + D 600 mg (1,500 mg)-800 unit Oral chew twice a day [Active]; Centrum lp1 Silver 0.4-300-250 mg-mcg-mcg Oral tab daily [Active]; clonazepam 1 mg Oral tab 1 tab 2 times per day [Active]; duloxetine 30 mg Oral cpDR 1 cap once daily [Active]; gabapentin 100 mg Oral cap 3 times per day [Active]; hydralazine 10 mg Oral tab 1 tab 2 times per day [Active]; ibandronate 150 mg Oral tab 1 tab once moly [Active]; losartan 100 mg Oral tab 1 tab once daily [Active]; oxybutynin chloride 10 mg Oral tr24 2 tabs in am and 1 tab at night [Active]; Potassium Chloride Oral 2 times per day [Active]; sotalol 80 mg Oral tab 1 tab 2 times per day [Active]; Xarelto 20 mg Oral tab 1 tab once daily [Active]; - PMHx: 00:44 Anxiety; Atrial Fib; Hypertension; neuropathy; lp1 - PSHx: 00:44 hysterectomy; lp1 - Immunization history: Last tetanus immunization: unknown. - Social history:: Smoking status: Patient denies any tobacco usage or history of. Screenin:53 Abuse screen: Denies threats or abuse. Denies injuries from another. Nutritional lp1 screening: No deficits noted. Tuberculosis screening: No symptoms or risk factors identified. Fall Risk Total Krishna Fall Scale indicates High Risk Score (45 or more points). Fall prevention measures have been instituted. Side Rails Up X 2 As available patient and family educated on Fall Prevention Program and Strategies. Primary Survey: 00:40 NO uncontrolled hemorrhage observed. A: The patient is alert. Airway: patent, No lp1 supplemental oxygen in use on arrival. Breathing/Chest: Respiratory pattern: regular, Breath sounds: clear, bilaterally. Chest inspection: symmetrical rise and fall of the chest. Circulation: Skin color: pink, Skin temperature: warm, dry. Disability Alert. Exposure/Environment: All clothing and personal items were removed. Obvious injury(ies) are noted at this time: Bruising noted to chin, lateral right eyebrow, left middle finger. 01:30 Reassessment Breathing/Chest Respiratory pattern Regular Respiratory effort Spontaneous lp1 Unlabored Breath sounds Clear Chest inspection Symmetrical. Secondary Survey: 00:53 HEENT: Face Other Bruising to chin and right lateral eyebrow. Gastrointestinal: No lp1 deficits noted. : No deficits noted. Musculoskeletal: No deficits noted. Assessment: 00:38 Reassessment: C-collar applied to patient. lp1 00:40 General: Appears in no apparent distress. Behavior is calm, cooperative. Pain: lp1 Complains of pain in face Pain currently is 4 out of 10 on a pain scale. Quality of pain is described as aching. Neuro: Level of Consciousness is awake, alert, obeys commands, Oriented to person, place, situation, Bodybuilder are equal bilaterally Speech is normal. EENT: No signs and/or symptoms were reported regarding the EENT system. Cardiovascular: Patient's skin is warm and dry. Respiratory: Airway is patent Respiratory effort is even, unlabored, Breath sounds are clear bilaterally. GI: Abdomen is non-distended, Abd is soft and non tender X 4 quads. : No signs and/or symptoms were reported regarding the genitourinary system. Derm: Skin is thin, Skin is dry, Skin is normal, Bruising that is dark purple, on right supraorbital ridge, chin and left middle finger. Musculoskeletal: Range of motion: intact in all extremities. 02:00 Reassessment: Patient appears in no apparent distress at this time. Patient and/or lp1 family updated on plan of care and expected duration. Pain level reassessed. Patient resting, eyes closed, respirations even; C-collar remains in place. 03:00 Reassessment: Patient appears in no apparent distress at this time. Patient awake with lp1 EMS at bedside, appears calm, no distress; C-collar removed. Vital Signs: 00:38 BP 179 / 92; Pulse 67; Resp 18; Temp 97.7(TE); Pulse Ox 98% on R/A; Weight 65.77 kg lp1 (R); Height 5 ft. 4 in. (162.56 cm); Pain 03/26; 01:51 BP 150 / 76; Pulse 69; Resp 18; Pulse Ox 100% on R/A; lp1 03:25 BP 149 / 76; Pulse 70; Resp 18; Pulse Ox 98% on R/A; lp1 00:38 Body Mass Index 24.89 (65.77 kg, 162.56 cm) lp1 [place] Coma Score: 00:39 Eye Response: spontaneous(4). Verbal Response: oriented(5). Motor Response: obeys lp1 commands(6). Total: 15. Trauma Score (Adult): 00:39 Eye Response: spontaneous(1); Verbal Response: oriented(1); Motor Response: obeys lp1 commands(2); Systolic BP: > 89 mm Hg(4); Respiratory Rate: 10 to 29 per min(4); Susana Score: 15; Trauma Score: 12 ED Course: 00:35 Patient arrived in ED. lp1 00:35 Triage completed. lp1 00:36 David Carmichael PA is PHCP. cp 00:36 Erickson Prieto MD is Attending Physician. cp 00:37 Irene Orourke RN is Primary Nurse. lp1 00:39 Patient maintains SpO2 saturation greater than 95% on room air. lp1 00:45 Patient has correct armband on for positive identification. Placed in gown. Bed in low lp1 position. Call light in reach. Pulse ox on. NIBP on. 00:53 Thermoregulation: warm blanket given to patient. lp1 00:53 Arm band placed on. lp1 00:58 CT Head C Spine In Process Unspecified. EDMS 00:58 CT Facial Bones W/O Con In Process Unspecified. EDMS 03:25 No provider procedures requiring assistance completed. Patient did not have IV access lp1 during this emergency room visit. Administered Medications: No medications were administered Intake: 03:25 PO: 0ml; Total: 0ml. lp1 Output: 03:25 Urine: 0ml; Total: 0ml. lp1 Outcome: 02:54 Discharge ordered by MD. cp 03:25 Discharged to home via ambulance. lp1 03:25 Condition: good 03:25 Discharge instructions given to patient, Instructed on discharge instructions, follow up and referral plans. Demonstrated understanding of instructions, follow-up care. 03:29 Patient's length of stay in the Emergency Department was greater than 2 hours. lp1 03:29 Patient left the ED. lp1 Signatures: Dispatcher [employer] EDNH Irene Orourke RN RN lp1 David Carmichael PA PA cp
[2021-10-07 03:35] VITALS: TEMP 97.7
[2021-10-07 03:38] VITALS: BP 149/76; O2SAT 98
--- NOTE | 2021-10-07 15:16 | RAD REPORT ---
EXAM DESCRIPTION: CT - [id number] - 10/07/2021 6:36 am CLINICAL HISTORY: Fall COMPARISON: 11/08/2020 TECHNIQUE: Axial CT of the head obtained from the skull apex to the skull base without contrast. Axi al CT images of the cervical spine obtained from the skull base through the thoracic inlet. Sagittal and coronal reformatted images available. This exam was performed according to our departmental dose- optimization program, which includes automated exposure control, adjustment of the mA and/or kV accor ding to patient size and/or use of iterative reconstruction technique. FINDINGS: CT head: No acute intracranial hemorrhage identified. No mass, mass effect, shift of the midline, abnormal ext ra-axial fluid collection or CT evidence of acute ischemic change identified. Mild prominence of vent ricular system and sulcal spaces. Scattered hypodensities in the supratentorial white matter are no nspecific and may represent sequela of chronic small vessel ischemic change. The visualized paranasal sinuses and the mastoids are clear. No skull fracture identified. Visual ized orbits and globes are unremarkable. Cervical CT: Straightening of the cervical lordosis may be secondary to patient positioning. The atlantoaxial, a tlantodental, and occipitoatlantal intervals are preserved. No fracture identified. Vertebral body height preserved. Prevertebral soft tissues are unremarkable. Mild to moderate multilevel loss of intervertebral disc height with endplate spondylosis, uncovertebr al spurring, and facet arthropathy. Spurring of the atlantodental articulation. Visualized skull base is intact. No fracture of the visualized facial bones. Visualized mastoid air c ells and paranasal sinuses are well aerated. Visualized thyroid is unremarkable. No cervical lymphadenopathy. No pneumothorax in the visualized lung apices. Patchy biapical opacities may represent scarring. Coronary artery atherosclerosis. IMPRESSION: 1. No acute intracranial abnormality. 2. No acute fracture or subluxation of the cervical spine. 3. Multilevel degenerative change of the cervical spine. Electronically signed by: Mayur Louise 10/07/2021 1:34 AM REFERENCE INVESTIGATOR Due to temporary technical issues with the PACS/Fluency reporting system, reports are being signed by the in house radiologists without review as a courtesy to insure prompt reporting. The interpreting radiologist is fully responsible for the content of the report.
--- NOTE | 2021-10-07 15:20 | RAD REPORT ---
EXAM DESCRIPTION: CT - Facial Bones W/ Mpr - 10/07/2021 6:35 am CLINICAL HISTORY: Fall COMPARISON: None available TECHNIQUE: Axial CT of the facial bone obtained without contrast. Coronal and sagittal reformatted i mages available. This exam was performed according to our departmental dose-optimization program, [facility] includes automated exposure control, adjustment of the mA and/or kV according to patient size and/ or use of iterative reconstruction technique. FINDINGS: Orbits: Orbital floors and eason are intact. Intraorbital contents: The globes are intact. Extraocular muscles are symmetric. No intraconal fat st randing. Nasal bones: Intact. Maxilla: The maxillary hard palate is intact. Maxillary antral eason are intact. Sinuses: Paranasal sinuses are well aerated. Zygomatic processes: Intact Pterygoid plates: Intact Mandible: Intact. No mandibular condylar dislocation. Skull base/cervical spine: Visualized portions of the skull base and cervical spine are intact. Visua lized mastoid air cells are well aerated. Subcutaneous soft tissues: No abnormality noted in the subcutaneous soft tissues. Neck soft tissues: No definite abnormality involving the nasopharynx, oropharynx, or hypopharynx. Fos sa of [place] are clear. Parotid glands and submandibular glands are unremarkable. No cervical ly mphadenopathy. IMPRESSION: 1. No acute facial bone fracture identified. Electronically signed by: Mayur Louise 10/07/2021 1:37 AM REFUGE WORKER Due to temporary technical issues with the PACS/Fluency reporting system, reports are being signed by the in house radiologists without review as a courtesy to insure prompt reporting. The interpreting radiologist is fully responsible for the content of the report.
== END 2021-10-07 03:29 | disposition home or self-care (01) ==
LOC: ER 00:28
DX: S00.83XA Contusion of other part of head, initial encounter (principal); W18.30XA Fall on same level, unspecified, initial encounter; I10 Essential (primary) hypertension; I48.91 Unspecified atrial fibrillation
CPT/HCPCS: 70450; 70486; 72125; 76377; 99284

== ENCOUNTER 2022-07-10 15:30 | Observation (INO) | payer OTHER ==
--- OUTSIDE RECORDS SUMMARY | 2022-07-10 15:33 | XMS REPORT | Clinical Summary ---
:1935 Author Organization [facility] MD [facility] Address [address] [place] [address] Care Team Providers Name Role Phone Lauren Dumont MD Primary Care Provider Srinath Bowen MD Unavailable Alberto Martinez MD Unavailable Alberto Martinez MD Unavailable Lauren Dumont MD Unavailable Kalpana Francis NP Unavailable Allergies No known active allergies Medications Medication Sig Dispensed Refills Start End Status Date Date oxybutynin Take 10 mg by 0 Activ e (DITROPAN-XL) 10 mg 24 mouth daily. hr tablet gabapentin (NEURONTIN) Take 100 mg 0 Active 100 mg capsule by mouth 3 (three) times a day. hydrALAZINE twice daily. 6 Activ e (APRESOLINE) 10 mg 9 tablet losartan (COZAAR) 100 Take 100 mg 0 Active mg tablet by mouth daily. calcium Take 3 0 Active carbonate-vitamin D3 tablets by ([id number]) 1,500 mouth daily mg - 400 units (600 mg with elemental calcium per breakfast. tablet) per tablet sotalol (BETAPACE) 80 Take 80 mg by 0 Active mg tablet mouth twice daily. rivaroxaban (XARELTO) Take 20 mg by 0 Active 20 mg tablet mouth daily. magnesium oxide (MAOX) Take 400 mg 0 Active 400 mg tablet by mouth 1 twice daily. potassium chloride Take 1 tablet 0 Active (KLOR-CON) 20 mEq ER by mouth 1 tablet twice daily. metoprolol succinate TAKE 1 TABLET 0 Active (TOPROL XL) 25 mg 24 hr BY MOUTH 0 tablet TWICE DAILY hydroCHLOROthiazide Take 12.5 mg 0 Active (HYDRODIURIL) 12.5 mg by mouth. 1 tablet amLODIPine (NORVASC) 5 TAKE 1 TABLET 0 Active mg tablet BY MOUTH 2 DAILY IN THE MORNING DULoxetine (CYMBALTA) TAKE 1 0 Active 60 mg capsule CAPSULE BY 2 MOUTH DAILY WITH BREAKFAST guaiFENesin (MUCINEX) Take 600 mg 0 Active 600 mg 12 hr tablet by mouth daily. vit C/vit E Take by mouth 0 Acti ve ac/lut/copper/zinc daily. (PRESERVISION LUTEIN ORAL) UNABLE TO FIND Take 1 tablet 0 A ctive by mouth daily. Prevagen cholecalciferol, Take 400 0 Act kelle vitamin D3, (VITAMIN Units by D3) 5,000 units tab mouth twice tablet daily. pumpkin seed Take by mouth 0 Act kelle extract/soy germ (AZO daily. BLADDER CONTROL ORAL) ibandronate (BONIVA) Take 150 mg 0 Active 150 mg tablet by mouth every 30 (thirty) days. Take in AM with glass of water prior to food, don't lie down for 30 minutes. estradiol (VAGIFEM) 10 Insert 1 24 tablet 0 Active mcg vaginal tablet (10 2 tabletIndications: mcg) into the Atrophic vaginitis vagina 2 (two) times a week MTH. ibandronate (BONIVA) every 30 Discontinued 150 mg tablet (thirty) 9 021 (Not days. Applicable ) estradiol (VAGIFEM) 10 INSERT 1 8 tablet 11 Discontinued mcg vaginal TABLET INTO 0 022 (Reord er) tabletIndications: High THE VAGINA grade squamous TWO TIMES A intraepithelial lesion WEEK(FRIDAY on cytologic smear of AND FRIDAY) vagina (HGSIL), Vaginal FOR 30 DAYS high risk human papillomavirus (HPV) DNA test positive estradiol (VAGIFEM) 10 INSERT 1 8 tablet 11 Discontinued mcg vaginal TABLET INTO 2 022 (Thera py tabletIndications: High THE VAGINA completed) grade squamous TWO TIMES A intraepithelial lesion WEEK(FRIDAY on cytologic smear of AND FRIDAY) vagina (HGSIL), Vaginal FOR 30 DAYS high risk human papillomavirus (HPV) DNA test positive estradiol (VAGIFEM) 10 Insert 10 mcg 0 01/16 Discontinued mcg vaginal tablet into the 022 ( Reorder) vagina 2 (two) times a week MTH. 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 of vagina 02/25/2018 Encounters Date Type Specialty Care Team Description 06/24/2022 Refill Surgical Oncology Deedee Manzo PA Atrop hic vaginitis 06/19/2022 Refill Surgical Oncology Deedee Manzo PA Atrop hic vaginitis 06/19/2022 Nurse Only Surgical Oncology Vivian Andrews RN 06/19/2022 Refill Surgical Oncology Vivian Andrews RN Atr ophic vaginitis (Primary Dx) 04/11/2022 Consult Urology Deuce Hicks MD Renal mass 04/11/2022 Orders Only Urology Lida oCllazo Renal ma ss (Primary Dx) PA 04/11/2022 Travel 04/04/2022 Orders Only Gynecology Latonya Blevins PA Renal mass ( Primary Dx) 12/07/2021 Refill Gynecology Vivian Andrews RN High gra de squamous intraepithelial lesion on cytologic smear of vagina (HGSIL); Vaginal high ri sk human papillomavirus (HPV) DNA test positive 12/03/2021 Refill Surgical Oncology Jaquan Armenta PA 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); Vaginal high ri sk human papillomavirus (HPV) DNA test positive 09/14/2021 Office Visit Gynecology Lauren Dumont, High gra de squamous intraepithelial lesion on cytologic smear of vagina (HGSIL) (Primary Dx); Vaginal high ri sk human papillomavirus (HPV) DNA test positive; Moderate vagina l dysplasia; Atrophic vagini tis 09/14/2021 Travel 09/13/2021 Refill Surgical Oncology Jaquan Armenta PA 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); Vaginal high ri sk human papillomavirus (HPV) DNA test positive 09/13/2021 Refill Surgical Oncology Jaquan Armenta PA 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); Vaginal high ri sk human papillomavirus (HPV) DNA test positive after 07/10/2021 Surgical History Surgery Date Site/Laterality Comments TUBAL [...] file Not on file Not on file Obstetrics History Last Filed Vital Signs Vital Sign Reading Time Taken Comments Blood Pressure 123/69 04/11/2022 12:56 PM CDT Pulse 69 04/11/2022 12:56 PM CDT Temperature 36.7 C (98.1 F) 04/11/2022 12:56 PM CDT Respiratory Rate 16 04/11/2022 12:56 PM CDT Oxygen Saturation 97% 09/14/2021 11:31 AM CDT Inhaled Oxygen Concentration - - Weight 67.3 kg (148 lb 5.9 oz) 09/14/2021 11:31 AM CDT Height - - Body Mass Index 26.29 12/15/2015 2:48 PM BOX FABRICATOR Plan of Treatment Date Type Specialty Care Team Description 09/13/2022 Office Visit Gynecology Lauren Dumont MD [address] [place], [place] [address] (Wo rk) 04/10/2023 Ancillary Procedure Radiology Rafael Collazo PA [place], [place] [address] (Wo rk) 04/15/2023 Office Visit Urology Deuce Hicks MD [address], [place] [address] (Wo rk) Health Maintenance Due Date Last Done Comments COVID-19 Vaccination (#1) 1935 Procedures Procedure Name Priority Date/Time Associated Diagnosis Comme nts CYTOLOGY HPV 16/18 Routine 09/14/2021 1:43 High grade squamous Results for this GENOTYPING AND HIGH PM CDT intraepithelial lesio n procedure are in RISK POOL on cytologic smear of the re sults vagina (HGSIL) section. Vaginal high risk human papillomavirus (HPV) DNA test positive Moderate vaginal dysplasia Atrophic vaginitis CYTOLOGY ELECTRICIAN SUBSTATION SUPERVISOR Routine 09/14/2021 1:43 High grade squamous Resul ts for this INTERPRETATION PM CDT intraepithelial lesion pro cedure are in on cytologic smear of the re sults vagina (HGSIL) section. Vaginal high risk human papillomavirus (HPV) DNA test positive Moderate vaginal dysplasia Atrophic vaginitis after 07/10/2021 Results (ABNORMAL) Cytology HPV 16/18 Genotyping and High Risk Pool (09/14/2021 1:43 PM CDT) Component Value Ref Range Test Analysis Performed Pathologis t Method Time At Signature HPV Type 16 Positive (A) Negative, 09/21/2021 [facility] Indetermi 3:57 PM andrea, CDT Invalid HPV Type 18 Negative Negative, 09/21/2021 [facility] Indetermi 3:57 PM andrea, CDT Invalid HPV High Risk Negative Negative, 09/21/2021 [facility] Non-16/18 Indetermi 3:57 PM andrea, CDT Invalid Informational The freddy HPV Test ([facility], [place], [place]) is a qualitative in vitro diagnostic test for the detection of Human Papillomavirus in cervical specimens collected in PreservCyt Solution or 09/21/2021 [facility] Points SurePathTM Preservation Flu id. The test utilizes amplification of target DNA by the Polymerase Chain Reaction (PCR) and nucleic acid hybridization for the detection of 14 high-risk (HR) HPV types in a 3:57 PM single analysis. The test sp ecifically identifies types HPV16 and HPV18 while concurrently detecting the other high risk types (31, 33, 35, 39, 45, 51, 52, 56, 58, 59, 66, and 68). CDT The performance characterist ics of this test were validated and determined by the [facility] cytology laboratory. These validation analyses have confirmed the accurate performance of the assay of the bianka cturer s stated limit of detection for the target of the test in various specimen types. The [facility] cytology laborator y is authorized under Clinical Laboratory Improvement Amendments (CLIA) to perform high-complexity testing. The [facility] Department of Pathology is accredited by the [employer] (CAP). Specimen Anatomical Collection Method Collection Time Receive d Time (Source) Location / / Volume Laterality Swab (Vagina, 09/14/2021 1:43 PM 09/19/20 3:29 SurePath, Liquid CDT PM CDT Based Preparation) Lauren Dumont MD LAB CYTOLOGY ORDERABLES Performing Organization Address City/State/ZIP Code Phon e Number [facility] [place] [address] [id number] (ABNORMAL) Cytology ELECTRICIAN SUBSTATION SUPERVISOR Interpretation (09/14/2021 1:43 PM CDT) Component Value Ref Test Analysis Performed Pathologis t Range Method Time At Signature Gross A: 09/25/2021 [facility] Description 1 SurePath vial received 5:04 PM BOX FABRICATOR Specimen A. Vagina, 09/25/2021 [facility] Information SurePath, Liquid 5:04 PM Based BOX FABRICATOR Preparation, Swab, Specimen Satisfactory for 09/25/2021 [facility] Adequacy evaluation 5:04 PM BOX FABRICATOR Diagnosis Atypical squamous 09/25/2021 [facility] Electronically cells of 5:04 PM signed by Reno Trotter MD on significance 09/25/20 21 at (ASC-US) (A) 5:04 PM HPV Reflex for Yes 09/25/2021 [facility] Patient Financial Services Coordinator 5:04 PM BOX FABRICATOR Informational Cervicovaginal cytology is a screening procedure subject to false negatives and false positives. Results are more reliable when a satisfactory sample is obtained on a regular repetitive basis and should 09/25/2021 [facility] Points be interpreted together with past and current clinical data . 5:04 PM Some tests reported here may have been developed and performance characteristics determined by [facility]ology and Laboratory Medicine. These tests have not been specifically cleared or approved by the U.S. Food and Drug Administration. BOX FABRICATOR Specimen Anatomical Collection Method Collection Time Receive d Time (Source) Location / / Volume Laterality Swab (Vagina, 09/14/2021 1:43 PM 09/19/20 21 3:29 SurePath, Liquid CDT PM CDT Based Preparation) Lauren Dumont MD LAB CYTOLOGY ORDERABLES Performing Organization Address City/State/ZIP Code Phon e Number [facility] [place] [address] [place] [address] after 07/10/2021 Insurance Payer Benefit Plan / Subscriber ID Effective Phone Address T ype Group Dates [employer] MEDICARE [id number] 2018-Prese [address] Medicare HEALTHCARE ADVANTAGE [place], [place] [employer] [id number] Care Teams Slitting And Shipping Supervisor Relationship Specialty Start Date End Date Lauren Dumont MD PCP - General 01/17/[address] [place] [id number] Srinath Bowen MD PCP - External Primary Care 11/02/14 [address] [facility] [address] [place] [address] Alberto Martinez MD PCP - External Referring 10/06/14 [address] [facility] [place], [place] [id number] Alberto Martinez MD PCP - External Follow Up A 10/06/14 [address] [place] [address] Lauren Dumont MD Physician 01/24/[address] [place] [address] [phone] Kalpana Francis, PRESALES ENGINEER Nurse Practitioner 01/24/[address] [place] [address] [phone]
--- OUTSIDE RECORDS SUMMARY | 2022-07-10 15:33 | XMS REPORT | Continuity of Care Document ---
:1935 Author Organization [facility] t Address [address] [place] [address] Care Team Providers Name Role Phone [phone] Primary Care Physician Unavailable SYSTEM, PROVIDER NOT IN Attending Clinician Unavailable ROCHELLE ABDUL Attending Clinician Unavailable Deedee Beltran Attending Clinician Juliana GARIBAY, Vivian L Attending Clinician Unavailable Ryann Agrawal MD Attending Clinician RYANN AGRAWAL Attending Clinician Unavailable Lida Butler Attending Clinician Latonya Aldana Attending Clinician Jaquan Gutiérrez Attending Clinician Unavailable Falguni Dumont MD Attending Clinician FALGUNI DUMONT Attending Clinician Unavailable Soren Guallpa MD Attending Clinician SOREN GUALLPA Attending Clinician Unavailable SOREN GUALLPA Attending Clinician Unavailable Payers Payer Name Policy Type Policy Number Effective Date Expiration Date S charlee [facility] [id number] 2021 [facility] 00:00:00 PPO Problems Condition Condition Condition Status Onset Resolution Last Treating Co mments Source Name Details Category Date Date Treatment Clinician Date 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 00:00: Trevon ambriz athy athy 00 MD Aydee rivera [facility] Center 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 7-17 ity of 00:00: [place] 00 MD Aydee rivera [facility] Center 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 [place] Aydee rivera [facility] 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 00:00: Trevon ambriz elial elial 00 lesion on lesion on [place] rso cytologic cytologic n smear of smear of Cancer vagina vagina Center (HGSIL) (HGSIL) 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 HPV DNA 00:00: [place] test of test of 00 vagina vagina [facility] No known No known Disease Unive rs active active ity of problems problems [facility] Allergies, Adverse Reactions, Alerts Allergy Allergy Status Severity Reaction(s) Onset Inactive Treating Comm ents Source Name Type Date Date Clinician NO KNOWN Drug Active Univers ALLERGIE Class ity of S [facility] Social History Social Habit Start Date Stop Date Quantity Comments Source Exposure to Not sure [facility]-CoV-2 [facility] (event) Branch Alcohol intake 2018-10-27 2018-10-27 Current University of 00:00:00 00:00:00 non-drinker of [facility] alcohol Branch (finding) Sex Assigned At [birth year] Universit y of 00:00:00 00:00:00 [place] MD Sweeney [facility] Smoking Status Start Date Stop Date Source Never smoker [facility] Medications Ordered Filled Start Stop Current Ordering Indication Dosage Frequency Signature Comments Components Source Medication Medication Date Date Medication? Clinician (SIG) Name Name estradiol Yes Atrophic 10ug Insert 1 Univers (VAGIFEM) 06-20 vaginitis tablet (10 ity of 10 mcg 00:00: mcg) into [place] vaginal 00 the vagina tablet 2 (two) Anderso times a n week [facility] estradiol 2021- No 10ug Insert 10 Un ivet (VAGIFEM) 06-19 08-03 mcg into ity o f 10 mcg 18:33: 00:00 [place] vaginal 16 :00 2 (two) tablet times a Anderso week MTH. n [facility] guaiFENesin Yes 600mg Take 600 U nivers (MUCINEX) 5-26 mg by ity of 600 mg 12 13:42: mouth [place] hr tablet 18 daily. MD Aydee rivera [facility] vit C/vit E Yes Take by Uni vers ac/lut/gal 5-26 mouth ity of er/zinc 13:42: daily. Mari (PRESERVISI 18 ON LUTEIN Anderso ORAL) [facility] UNABLE TO Yes 1{tbl} Take 1 Univ ers FIND 5-26 tablet by ity of 13:42: mouth [place] 18 daily. MD Yancy Bajwa [facility] cholecalcif Yes 400U Take 400 Un ivet tanja, 5-26 Units by ity of vitamin D3, 13:42: mouth [place] (VITAMIN 18 twice MD D3) 5,000 daily. Anderso units tab n tablet Cancer [place] pumpkin Yes Take by Univers seed 5-26 mouth ity of extract/soy 13:42: [place] germ (AZO 18 BLADDER Anderso CONTROL n ORAL) [facility] ibandronate Yes 150mg Take 150 U nivers (BONIVA) 5-26 mg by ity of 150 mg 13:42: mouth [place] tablet 18 every 30 MD (thirty) Anderso days. Take n in AM with Cancer glass of [place] water prior to food, don't lie down for 30 minutes. oxybutynin Yes 10mg Take 10 mg U nivers (DITROPAN-X 5-26 by mouth ity of L) 10 mg 24 13:37: daily. [place] hr tablet 47 MD Aydee rivera [facility] gabapentin Yes 100mg Take 100 Un ivet (NEURONTIN) 5-26 mg by ity of 100 mg 13:37: mouth 3 [place] capsule 47 (three) MD times a Anderso day. n [facility] losartan Yes 100mg Take 100 Univ ers (COZAAR) 5-26 mg by ity of 100 mg 13:37: mouth [place] tablet 47 daily. MD Aydee rivera [facility] calcium Yes 3{tbl} Take 3 Univer s carbonate-v 5-26 tablets by it y of itamin D3 13:37: mouth [place] ([id number] 47 daily with 0+D) 1,500 breakfast. And erso mg - 400 n units (600 Cancer mg Center elemental calcium per tablet) per tablet sotalol Yes 80mg Take 80 mg Univ ers (BETAPACE) 5-26 by mouth ity o f 80 mg 13:37: twice [place] tablet 47 daily. MD Aydee rivera [facility] rivaroxaban Yes 20mg Take 20 mg Univers (XARELTO) 5-26 by mouth ity of 20 mg 13:37: daily. [place] tablet 47 MD Bajwa [facility] DULoxetine Yes TAKE 1 Unive rs (CYMBALTA) 5-17 CAPSULE BY ity of 60 mg 00:00: MOUTH [place] capsule 00 DAILY [facility] amLODIPine Yes TAKE 1 Unive rs (NORVASC) 5 5-05 TABLET BY ity of mg tablet 00:00: MOUTH [place] 00 DAILY IN MD THE Anderso ARTEAGA [facility] estradiol 2021- No Vaginal INSERT 1 Univers (VAGIFEM) 1-23 05-26 high risk TABLET it y of 10 mcg 00:00: 00:00 human INTO THE [place] vaginal 00 :00 papillomavi VAGINA TWO MD tablet zainab (HPV) TIMES A Patel so DNA test WEEK(MONDA n positive Y AND Cancer FRIDAY) Center FOR 30 DAYS rivaroxaban Yes 20mg Take 20 mg Univers 20 mg 4-05 by mouth. ity of tablet 19:28: [address] rivaroxaban Yes 20mg Take 20 mg Univers 20 mg 4-05 by mouth. ity of tablet 19:28: [address] hydroCHLORO Yes 12.5mg Take 12.5 Univers thiazide 3-22 mg by ity of (HYDRODIURI 00:00: [place] L) 12.5 mg 00 tablet [facility] hydroCHLORO Yes 12.5mg Take 12.5 Univers thiazide 3-22 mg by ity of 12.5 mg 00:00: mouth [place] tablet 00 every Medical morning. Branch hydroCHLORO 2020-0 Yes 12.5mg Take 12.5 Univers thiazide 3-22 mg by ity of 12.5 mg 00:00: mouth [place] tablet 00 every Medical morning. Branch magnesium 2020-0 Yes 400mg Take 400 Uni vers oxide 3-16 mg by ity of (MAOX) 400 00:00: mouth [place] mg tablet 00 twice MD daily. [facility] magnesium 2020-0 Yes 400mg Take 400 Uni [...] of tablet 00:00: [place] 00 Medical Branch oxybutynin 2020-0 Yes Univers 10 mg 24 hr 3-01 ity of tablet 00:00: [place] 00 Medical Branch clonazePAM 2020-0 Yes .5mg Take 0.5 Uni vers 0.5 mg 2-23 mg by ity of tablet 00:00: mouth [place] 00 daily. Medical Branch clonazePAM 2020-0 Yes .5mg Take 0.5 Uni vers 0.5 mg 2-23 mg by ity of tablet 00:00: mouth [place] 00 daily. Medical Branch losartan 2020-0 Yes 100mg Take 100 Univ ers 100 mg 1-28 mg by ity of tablet 00:00: mouth [place] 00 every Medical morning. Branch losartan 2020-0 Yes 100mg Take 100 Univ ers 100 mg 1-28 mg by ity of tablet 00:00: mouth [place] 00 every Medical morning. Branch potassium 2020-0 Yes 1{tbl} Take 1 Univ ers chloride 1-14 tablet by ity of (KLOR-CON) 00:00: mouth [place] 20 mEq ER 00 twice MD tablet daily. [facility] potassium 2020-0 Yes 1{tbl} Take 1 Univ ers chloride 20 1-14 tablet by ity of mEq tablet 00:00: mouth [place] 00 every Medical morning. Branch potassium 2020-0 Yes 1{tbl} Take 1 Univ ers chloride 20 1-14 tablet by ity of mEq tablet 00:00: mouth [place] 00 every Medical morning. Branch metoprolol 2019-11 Yes TAKE 1 Unive rs succinate 2-10 TABLET BY ity o f (TOPROL XL) 00:00: MOUTH [place] 25 mg 24 hr 00 TWICE MD tablet DAILY [facility] estradiol 2021- No Vaginal INSERT 1 Univers (VAGIFEM) 06-20 high risk TABLET it y of 10 mcg 00:00: 00:00 human INTO THE [place] vaginal 00 :00 papillomavi VAGINA TWO MD tablet zainab (HPV) TIMES A Patel DNA test WEEK(MONDA n positive Y AND Cancer FRIDAY) Center FOR 30 DAYS hydrALAZINE Yes twice Unive rs (APRESOLINE 5-20 daily. ity of ) 10 mg 00:00: [place] tablet 00 [facility] ibandronate 2020- No every 30 U nivers (BONIVA) 01-22- (thirty) ity of 150 mg 00:00: 00:00 days. [place] tablet 00 :00 [facility] gabapentin 2017-11 Yes 200mg Take 2 Univ [...] Comments Source WEIGHT 2021-04-06 13:09:00 67.4 kg Systolic blood 2021-02-19 19:31:00 114 mm[Hg] Univer sity of pressure [facility] Diastolic blood 2021-02-19 19:31:00 74 mm[Hg] Unive rsity of pressure [facility] Heart rate 2021-02-19 19:31:00 105 /min Universi ty of [facility] Oxygen saturation in 2021-02-19 19:31:00 95 /min [facility] Arterial blood by [facility] Pulse oximetry Branch Systolic blood 2022-04-11 17:56:29 123 mm[Hg] Univer sity of pressure [facility] Diastolic blood 2022-04-11 17:56:29 69 mm[Hg] Unive rsity of pressure [facility] Heart rate 2022-04-11 17:56:29 69 /min Universi ty [facility] MD [facility] Body temperature 2022-04-11 17:56:29 36.72 [facility] Respiratory rate 2022-04-11 17:56:29 16 /min [facility] MD [facility] Body weight 2021-09-14 16:31:00 67.3 kg Universi ty [facility] MD [facility] BMI 2021-09-14 16:31:00 26.29 kg/m2 [facility] MD [facility] Oxygen saturation in 2021-09-14 16:31:00 97 /min University of Arterial blood by Mari harris Pulse oximetry Cancer Center Procedures Procedure Date / Time Performing Clinician Source Performed CYTOLOGY FISH HATCHERY MAN 2021-09-14 18:43:00 Falguni Dumont [facility] INTERPRETATION MD [place] [facility] CYTOLOGY HPV 16/18 2021-09-14 18:43:00 Falguni Dumont [facility] GENOTYPING AND HIGH RISK MD Chucho rodríguez Cancer [facility] Plan of Care Planned Activity Planned Date Details Comments Source Future Scheduled 2022-06-19 COVID-19 Vaccination [facility] Test 16:30:36 (#1) [code = COVID-19 Cancer Vaccination (#1)] Center Encounters Start End Encounter Admission Attending Care Care Encounter Source Date/Time Date/Time Type Type Clinicians Facility Department ID 2022-04-04 Outpatient SYSTEM, LI JEFFERSON [id number] 08:20:15 PROVIDER Jacques o n 2022-08-19 2022-08-19 Outpatient R ROCHELLE ABDUL [facility] [id number] Univers 14:00:00 14:00:00 [id number] [facility] 2022-06-24 2022-06-24 Sen Manzo, 1.2.840.1 [id number] Univers 00:00:00 00:00:00 Deedee 63880.1.1 ity of 3.412.2.7 [place] .3.002777 MD Fletcher8 [facility] 2022-06-19 2022-06-19 Sen Manzo, 1.2.840.1 [id number] Univers 00:00:00 00:00:00 Deedee 79471.1.1 ity of 3.412.2.7 [place] .3.131507 MD Fletcher8 [facility] 2022-06-19 2022-06-19 Nurse Only Juliana, 1.2.840.1 [id number] Univers 00:00:00 00:00:00 February L 06815.1.1 ity of 3.412.2.7 [place] .3.478086 MD Robles [facility] 2022-06-19 2022-06-19 Sen Andrews, 1.2.840.1 [id number] Univers 00:00:00 00:00:00 February L 34629.1.1 ity of 3.412.2.7 [place] .3.922721 MD Robles [facility] 2022-04-11 2022-04-11 Leonor Agrawal 1.2.840.1 [id number] Univers 13:00:00 14:00:22 Lisly 79782.1.1 ity of 3.412.2.7 [place] .3.172302 MD Robles [facility] 2022-04-11 2022-04-11 Outpatient ASTER AGRAWAL, LI MDA [id number] 12:44:22 14:00:22 RYANN Hanna [facility] 2022-04-11 2022-04-11 Briana Collazo, 1.2.840.1 [id number] Univers 00:00:00 00:00:00 Only Lida 91281.1.1 it y of A. 3.412.2.7 [place] .3.423177 MD Robles [facility] 2022-04-11 2022-04-11 Travel 1.2.840.1 [id number] Univers 00:00:00 00:00:00 12012.1.1 350.1.13.41 ity of 3.412.2.7 2.[place].7.3.698 [place] .3.078492 084.8 MD Robles [facility] 2022-04-04 2022-04-04 Latonya Locke 1.2.840.1 [id number] Univers 00:00:00 00:00:00 Only 00689.1.1 ity of 3.412.2.7 [place] .3.714803 MD Fletcher8 [facility] 2022-02-12 2022-02-12 Outpatient ROCHELLE DUNBAR [facility] [id number] Univers 15:00:00 15:00:00 [id number] ity of [facility] 2022-02-12 2022-02-12 Outpatient Berkley ABDUL ROCHELLE [facility] [id number] Univers 15:00:00 15:00:00 ity of [facility] 2021-12-07 2021-12-07 Sen Andrews, 1.2.840.1 [id number] Univers 00:00:00 00:00:00 Vivian L 34486.1.1 ity of 3.412.2.7 [place] .3.543337 MD Robles [facility] 2021-12-03 2021-12-03 Sen Armenta, 1.2.840.1 [id number] Univers 00:00:00 00:00:00 Jaquan 37485.1.1 ity of 3.412.2.7 [place] .3.346405 MD Robles [facility] 2021-09-14 2021-09-14 Sean Dumont, 1.2.840.1 [id number] Univers 11:30:00 12:00:00 Visit Falguni Arthur 20642.1.1 it y of 3.412.2.7 [place] .3.684941 MD Robles [facility] 2021-09-14 2021-09-14 Outpatient ASTER DUMONT [facility] MDA [id number] 11:27:30 11:27:30 FALGUNI rivera 2021-09-14 2021-09-14 Travel 1.2.840.1 [id number] Univers 00:00:00 00:00:00 65024.1.1 350.1.13.41 ity of 3.412.2.7 2.[place].7.3.698 [place] .3.766244 084.8 .8 [facility] 2021-09-13 2021-09-13 Sen Armenta, 1.2.840.1 [id number] Univers 00:00:00 00:00:00 Jaquan 81695.1.1 ity of 3.412.2.7 [place] .3.326525 MD Fletcher8 [facility] 2021-09-13 2021-09-13 Sen Armenta 1.2.840.1 [id number] Univers 00:00:00 00:00:00 Jaquan 67502.1.1 ity of 3.412.2.7 [place] .3.896457 MD Fletcher8 [facility] 2021-04-06 2021-04-06 Outpatient ASTER DUMONT [facility] MDA [id number] 12:37:49 17:10:43 FALGUNI rivera 2021-03-09 2021-03-09 Outpatient ASTER DUMONT [facility] MDA [id number] 10:32:45 10:32:45 FALGUNI rivera 2021-02-19 2021-02-19 Office Saloni [facility] 1.2.840.114 [id number] Univers 14:22:08 15:00:51 Visit Soren Parr 350.1.13.10 ity of [place] 4.2.7.2.686 Mayda Turner [id number] Pr dical nal 2 [facility] 2021-02-19 2021-02-19 Outpatient SOREN RAMIREZ [facility] [id number] Univers 14:20:00 14:20:00 SALONISOREN WHITT [id number] [facility] 2021-02-19 2021-02-19 Outpatient SOREN RAMIREZ [facility] [id number] Univers 14:20:00 14:20:00 SOREN GUALLPA [facility] 2021-02-16 2021-02-16 Outpatient SOREN RAMIREZ [facility] [id number] Univers 14:40:00 14:40:00 SALONI, SOREN [id number] [facility] 2021-02-16 2021-02-16 Outpatient SOREN RAMIREZ [facility] [id number] Univers 14:40:00 14:40:00 SALONISOREN WHITT [facility] 2020-08-23 2020-08-23 Outpatient ASTER DUMONT MDA MDA [id number] 10:20:30 10:20:30 FALGUNI rivera 2020-07-14 2020-07-14 Outpatient ASTER DUMONT MDA MDA [id number] 00:00:00 00:00:00 FALGUNI rivera 2019-06-29 2019-06-29 [facility] 1.2.840.114 [id number] 00:00:00 00:00:00 Soren Parr 350.1.13.10 Foreman 4.2.7.2.686 Professio [phone] [address] 2019-06-29 2019-06-29 Telephone Saloni [facility] 1.2.840.114 [id number] [facility] [place] [facility] 00:00:00 00:00:00 Soren Parr 350.1.13.10 [facility] 4.2.7.2.686 [place] Profess[place] [phone] Pr dical [address] Results Test Description Test Time Test Comments Results Result Comments Source Cytology FISH HATCHERY MAN Interpretation 2021-09-25 23:04:46 Test Item Value Reference Range Interpretation Comme nts Gross d6ttiEPvRSHzwOEABFakACbizjVlZZHqeFNdW8WhnylmAMemHU1aFM4ozWkdmRPxnQWfJX0KBOEeIzMe NERadOTzniEmTkRdBRCfeZXekAD4CZYvTY1vgeajNSkzJLptEOYqzxX6XLBqeDIzY8ZhWLJxFQ3gmuiw KOH6CQafhV1pebOSIpgzUu6imBGnjSsyZxVsYmVl JFGpHBPfTADagQtgLCPrIRa3nW0LEyneW89zd6C7Yii Description 3NGMiNHHfB4VfAH3vATAbmYRyW49DZbmtRSJ3XMWHVanoGNOgDL3Yv3qlEFGsjXJzWII5KRonpGJsPNR vPRIcTNj0SYVxPWcatBFlKS7wlXxpHakxtCyxo3JziUDsXLlbHLBlPDGsPOunIAJjAL8EYtNxRUKwXJK 4FHNyWXh0GCh9SO8EBqVzLBJvXJk0UmSuXQWjCFn 6JTtkUF4GIMd2NcIjUiO4BFF3VAT2PWOdXGPcDmJlBY (test code = XaWKLhLVheHHbxdvMfWUZxBFPoSXitNbuzVZdsJ62daZmeaL4nSfpizxEqSMN1UWHthwRODdsgfZGpuy bimTnbEyOeuZHcQzSwQRtvcKZftNBlQAwllwWsjgsnKHQNRftuoNTwlYzoDnTsQaZnMUYyRCU7zeLLDG EqSJVyTPlojeNnYGl2MLYKTzsxtSsjJwKklFMcMl GnnaX1PNOcwQFoTPJ6OH5qYDVcxdjiXRYvBMMkYFQ7A [id number]) MvydL78pWZhYYLsAFVzpHGonPbhyEOuuaGHFlfvaS9xAtTgq8jpfMy1JKZOKflusBJafjhmegM4APTjn 7vumOkis2BlaUIrIT4onQqfyG1uOjAoQsQXXr4= Specimen z6zgcSPcDJNkiBBsWhPrNGKwHKZug8zgAHXrkURaIdKiWwNwZiBzJjfeuTVqKLQlBfQar0uay651dUSr g0jpVUSxGuQ0eTOoZMJrgQJmX939ICHdBXllb4xwr9RlPMWfrBDwr4Z3MHXEchihmVe5v0jrYmSdKy3y tYBIk8EvqLCtVR3dqpo9oPyrJ76et0H6EphcS1vk KMUpSBRvP7FkVU4gICVwCpw4ATW6APD3HVDaPSKzI2A Information xIZ4pVCCddJXrAOrkqwZsNHebmvGsmeSiCqb3GEX0OLK3MKZsNTMjSKuegqEucmQmCqr0SDHtESE0JOE kBZG2RXuhcjUcjaLoQsz4NBRhR122VCZ6bLliq3mnUFK8GRKtZQEiZnCfDd1bbAYiJ808YLGsWMQRDNW llIi1RMIoysTgbxRljQVDu071D847CRJuKBMcWSr 9GfFVXVDqiap9aX7cXBGebl24sKgzywKxk33trLBeIH (test code = jpKiQbTFTtWlzpiEWzy66fWJvmqFk2f8wwrdLmlLPQMRWatyh4gQ3lT326TYL1MKEsCCr7TSbvpSOzyZ 9jqEG8CUpcSJGzVPrqZsqvCbLbJXidJVZcQNuofCRlg8G8hIrkWQgawtAlBVpsCDUmpkWRJGe3w0awIx caxnI1zRPxc6G9cQbqKPmhjxBtIicoyhI4JCEvz8 IlLAVrc8PtKQUrf7czMF95eVvylpCoALHulRGxa8Lsw 43310) F9xIWV1yOekruxwx91zxHBoPG31xQvjvyMpRSYmiCQuBtXpVDelXQBbSYOvVTViMBZaGDCpFZtvxPOnv X0lnUI3DGydNRbtYNRtDJjeZ949XHX8JONdLUv2WKbopUSmbM6naBM3OKb4WHNbLrRmCfslLeBcWMgkZ AMwMCpzaIBfs3U9tCdzPGvhavLkVZeqUPQmvmNJU Ee4l4kpMVxibyN1kZMlr9T3sQpsJIcldsJtULjrhzBp FLLbo2GySAQyn6UlGOVrq9tuMY79vRtplyKdHXFczHXiq3JlxG6aZMY0hSijdyPtZTEzRJt6ZWhgmALt eB0paRZ4VTv4IOJiHHRkOxaoKnZlESubVBEiCCexzCEmx1P4tAzoJHtcduFkLnxnIFTtsrHPYhz1l3ys DROiz58pgJVsFFgxVUFzymSlvdi1y4coSSZqu86v eHQwXGxpMzYwXHJpMzYwXHNiMTAwXHNhMTAwXHNsMCB AaZ4yz7Y8w9YyV517MCJhBEVzgOKUIZWCW020WSOpDHYnFyIgOmFkTFXFK6TBS690VDNiMFKjjPtqDJU fPQRlRKaqUL5acLZxlZP3wJglH9UxKtp4zOkqVcUxVMdpDESyvY4nO324XUZnXKykiPhvT6I1CPNpzLb jr1BhCXgvCEAejD8fI130YMRzDIbmHuCeNeZeRDn iEKgwzEIwXVZyW909ZLVcVPxwurR7rVBaRkLfIfVfUU u3kMEvqKc5GTnvlUwiKYJ2QMA9Zii4G7i3yKY1AoFyqVd5Auc3KDZ2QUi8ZNu6lYC7BUEwjCx7FlrnZF S0AZXwHJi6dJc5OYUav1JyJQKxGYcbjQCyJKTvRv7dxVM1gFNvG434RMLfQFhtxmK7sGVuYmKlOlAhUe l3KDOfPRF5MMQdXLPkXfahzgLvC6KiWRAhCIwmMc 25jN3gCP6sZVDuyx27sRpdncAcUGAcQEa4BHscBCvro pJ3SCNmLkKtrcRpXuNtxzYwZCHxJWDwCgPtlDDivw2Mp7Ytv3QgDe5khUs9t2zxzsUpRGVbIGRdmRJdR Ip4a7fqmtLdCFLeX1Pei74eR589ALVrUlYiMgGgPzSrDCQPwCBni2JciWTtU803BMNaXvTyxNZIBELkA CDdLQa5k2eizpQ8AEAeD6S0BDyCQMtjIPXvu3YyL 999GFCiFlfyrtRRv25hDO26B329e7keBZAddqXzrQyY mrfnk7xpN112KSXgaCLttdJcQiDxLLQwvUIivLY2OHRbRO7bxlowLJlkVJihUVWhpyX8SLBqbDGwE6Fk UKGgND3tzpbtZMH8ERarENKiOVH6GyJvPOLjf0Luwsk6FbVdsy8dwg14QQR5h7SekQhkBAM6AQT9FxXl Gh9glQXqZRJaFS6qBnDzuIJxNJHpyi86iJdqYEgw bhTbkV1hAhYcITUwfPHpRGUbWP5iwSDkSTVgsN7aivi lPRPdLfLnypylHCBwpTjrdeAxUu3nmEgnFQM3HOhfD9aelK2mLoK2SLqxM3sokH2nXYd3MKbweBY5JBF fcA3oWA3vkoovf6mdJYffNHecPOFfxtR7tpI5JJJneKJbP7ClgL5kYWYmNO1sflexy8lfSKK3UXcjGMR dSSH9RaSxYJZrt3Okodc0VoSbe7NleFXcBZrfF37 ov419OSOxqdSxG1tfdARlhzhioCJmoircUMafhjQ2QN YrmgFflYclxZ6hVvMjVjBcNFelNC6uGJBhO9yaeIYaPIOjGSKlM0nbKsRtcW4grHrbIJdvQfHrZmVzAJ WGCuGWDGhxxpZrUQI2sdXBKTGgEPEEiOX9sTTlWjZkTJMdTIQgiXHcZGRff18gLGO8HXGyNYghHYI7 Specimen Satisfactory for evaluation Adequacy (test code = 9847) Diagnosis Atypical squamous cells of undetermined significance ( ASC-US) A (test code = 9849) HPV Reflex Yes for [employer]ace [employer] (test code = 9974) Informationa u6gexKPeXXQpyBFfWzGjEMEpPABlw4opEDNwjWTeWhKcZuPkXqHiPqykwJMpRIOjUeKjt9adm481zDAm u4elVIKaYsV2eOXbMTNbhOXjT544ELQfYQyls3fbq7UmKGVtfBUwf8S6MVSDGYunDVOWEYn7a9bhSwGg HzT2gZWuXYtkI3kiaqDrkPXeAKMuFEn1lX16VURo bI9dfWUwFLssbrCoOyI8JXwyMRTpDhF0SSCaqVQmDAD l Points yA2uaHWLsURapVRTxQZbytMEeEUG1oNqjd4I3jUUmnWEbhIvjFsFoNaZzOcNNc4JhMYy8kXslW1OvRUS aHnH4sWXbOEGqJKnsUMPnPTFplrX6bH83LSqyjnG7vMGka1Nqz83ft368vH0tyFBpHCK4JSImXOInnWU nZVUfEBT6PHIioEKkW4vaVRXfGP8xjdjsIAzqDHd jPVLyjOS5ODFgcSXkC6VgDCSmKHymDNAukkw7NnVnJe (test code = 6thUJleOhsRXdrc6zex2shnIDcVaj3UJGhPfKxXsmqPOsrc7Sqr1mpSKYmak1hLXJ5uUBanBoys1J0hW ZhNITmgCQkbwRaOEVuBxR3OXpcLQ0dva13GOObSFQ4lg8lvNIjsDssgiAocXNfDFfoL0UkXPGwx291LZ UbV8VhZHUkb4F3zmUlJtIeWYRvaBB3ixZ4CNPlKQ s4gRQbasR2byMjiLBmI8qheR2vFLCsAN6rbbcyo3paB 9836) GgpXDcrBUWslLG7oyK0DRSbfPWsM5ArzL7hRTZtKGcdCMUoelg1BuFgKx1guVYegItqQOoiJdwwAUibS EEgleMaabQnkWouTKRgAWScBKodBUZsSLsdYBOlSLYpRwLwzBfxvOtlzA2pFfEjEeTaIIxcKD2vIEJtG 6xyiNWqEKYvQEGoP9sxWiDffF4znKdrSRtpszD0Y VzmC0Dlcilnb1LnK6qmCNggK4a8n5dmF7mweZIqOUFz I3TkPG6znxpvfXXsE7HgkJPhHMQ2PyrxZ1DwjU8oSxTcb5WuvwUgVIScidIhFULuEQKzXPmsPZMpe3Db oGh6ABLcZZQjx2PiaOAdIKSaPH0dtgXpbiTotPAneTByk2fllkHuFWLypLjvHbNtlC2vtISbYO8rsCVg rJPye2N3RTgsCOTcj74lHVNuGFj4nXNrARRgmGZ0 dUHlorNsBdFlaVEyOH3gDDKlu6RyWIMvZUJyndMxfaQ hKTHbLJG2h4yisJpecbE4jGHiIECoz0RpVN8dTWO6yuXrjaIrW5ensukoWLnzHPS9YJ2dFPFtheXTd20 rQHLgd2BvXPMdxU7xgFBkYZucqpNzrMF6PVbwepZzVzNecbXpVGIrdU9rHVTsNI0lVAVlpaIymp3cvyI dPXLmOFCcW8MkfhnqzCrvdrRnTIKgky4qkmWdUEN 2SXHTNH1ZEFKdLVLff45xLKIwlMeobG0oiLCmkmQhUX Exp8KlrV8lxITTNJOjQ1tyWU8wNWmge7OseGTfsOHgtMJ0EWZhi7PyAmZvjaZiaXVvsDOoC1CixYqkN5 yhHNKwMBUicySvjMThe1DqXGOffQZ7nQLnHW5JByJNq66uQZBvFJXAlgFwAOSoxJzmtOQ4cwY7lK4qBs JfeSxwcQ1mSrJtFzXlTacjJR4rDFSmI9vcyMHbXFNxXPGkQ5ziIoExvB7jtJeqUiiigwDzNBYpad5= Lab Abnormal Interpretati on (test code = 93429-3) [facility] [place] HPV 16/18 Genotyping and High Risk [id number] 20:57:34 Test Item Value Reference Range Interpretation Comments HPV Type 16 (test code Positive Negative, A = 9853) Indeterminate, Invalid HPV Type 18 (test code Negative Negative, = 9854) Indeterminate, Invalid HPV High Risk Negative Negative, Non-16/18 (test code = Indeterminate, 9855) Invalid Informational Points The freddy HPV Test (test code = 9852) ([facility], [place], [place]) is a qualitative in vitro diagnostic [...] test were validated and determined by the [facility] cytology laboratory. These validation analyses have confirmed the accurate performance of the assay of the gas systems worker s stated limit of detection for the target of the test in various specimen types. The [facility] cytology laboratory is authorized under Clinical Laboratory Improvement Amendments (CLIA) to perform high-complexity testing. The [facility] Department of Pathology is accredited by the [employer] ([employer]). Lab Interpretation Abnormal (test code = 51160-2) [facility] [place]
[2022-07-10 16:23] LABS: Absolute Lymphocytes (CBC) 1.3 K/uL (0.7-4.9); Hematocrit 35.1 % (36.0-45.0); Lymphocytes % 13.5 % (15.3-44.8); MCV 93.6 fL (80-100); MPV 8.9 fL (7.6-11.3); RBC Red Blood Cell Count 3.75 M/uL (3.86-4.86)
[2022-07-10 16:32] LABS: Protime INR 1.97
[2022-07-10 16:41] LABS: Albumin 3.3 g/dL (3.4-5.0); Bilirubin Direct 0.4 mg/dL (0-0.2); Bilirubin Total 1.6 mg/dL (0.2-1.0); Magnesium 1.8 mg/dL (1.8-2.4); Potassium 3.6 mmol/L (3.5-5.1); Protein, Total 7.3 g/dL (6.4-8.2); Troponin High Sensitivity 14.9 pg/mL (<58.9)
--- NOTE | 2022-07-10 16:47 | RAD REPORT ---
EXAM DESCRIPTION: RAD - Chest Single View - 07/10/2022 4:42 pm CLINICAL HISTORY: SOB COMPARISON: <Comparisons> FINDINGS: Lines: None. Lungs: No evidence of edema or pneumonia. Pleural: No significant pleural effusions or pneumothorax. Cardiac: The heart size is within normal limits. Bones: No acute fractures. Other: IMPRESSION: No acute cardiopulmonary disease.
[2022-07-10] MEDS ORDERED: NA CHLORIDE 0.9% 500 ML ONE (17:07)
--- NOTE | 2022-07-10 19:16 | EDPHYS ---
Physician Documentation [facility] Name: Juanita Mcghee Age: 87 yrs Sex: Female : 1935 Arrival Date: 07/10/2022 Time: 15:31 Bed 5 Private MD: ED Physician Werner Gomez HPI: 07/10 21:07 This 87 yrs old Female presents to ER via Ambulatory with complaints of Breathing kb Difficulty. 21:07 The patient has shortness of breath at rest, with light activity. Onset: The kb symptoms/episode began/occurred 2 day(s) ago. Duration: The symptoms are continuous. The patient's shortness of breath is aggravated by exertion, is alleviated by rest. Associated signs and symptoms: The patient has no apparent associated signs or symptoms. Severity of symptoms: At their worst the symptoms were moderate in the emergency department the symptoms are unchanged. The patient has not experienced similar symptoms in the past. The patient has not recently seen a physician. Pt reports shortness of breath that woke her up the night before last. States it has been getting worse, especially upon exertion. . Historical: - Allergies: 15:39 No Known Allergies; ap3 - PMHx: 15:39 Anxiety; Atrial Fib; Hypertension; neuropathy; ap3 - PSHx: 15:39 hysterectomy; ap3 - Immunization history:: Client reports receiving the 2nd dose of the Covid vaccine. - Social history:: Smoking status: Patient denies any tobacco usage or history of. ROS: 21:07 Constitutional: Negative for fever, chills, and weight loss. kb 21:07 Respiratory: Positive for dyspnea on exertion, shortness of breath, Negative for cough, hemoptysis, orthopnea, pleurisy, sputum production, wheezing. 21:07 All other systems are negative. Exam: 21:06 Constitutional: This is a well developed, well nourished patient who is awake, alert, kb and in no acute distress. Head/Face: Normocephalic, atraumatic. ENT: Moist Mucous membranes Respiratory: Respirations even and unlabored. No increased work of breathing. Talking in full sentences Abdomen/GI: Soft, non-tender. No distention Skin: Warm, dry with normal turgor. Normal color. MS/ Extremity: Pulses equal, no cyanosis. Neurovascular intact. Full, normal range of motion. Neuro: Awake and alert, GCS 15, oriented to person, place, time, and situation. Moves all extremities. Normal gait. Psych: Awake, alert, with orientation to person, place and time. Behavior, mood, and affect are within normal limits. 21:06 Cardiovascular: Rate: tachycardic, Rhythm: irregularly irregular, Pulses: no pulse deficits are appreciated, Edema: pedal edema. 21:06 ECG was reviewed by the Attending Physician. Vital Signs: 15:36 Pulse 117; Resp 17; Temp 98.3; Pulse Ox 96% ; Weight 64.86 kg; Height 5 ft. 2 in. ap3 (157.48 cm); 15:40 BP 164 / 103; ap3 16:48 BP 152 / 116; Pulse 115; ll1 18:28 BP 160 / 107; Pulse 107; Resp 18; Pulse Ox 98% on R/A; kr3 18:33 BP 162 / 103; Pulse 103; Resp 18; Pulse Ox 99% on R/A; kr3 19:00 BP 150 / 104; Pulse 115; Resp 22; Pulse Ox 100% on R/A; jb4 20:00 BP 115 / 116; Pulse 111; Resp 26; Pulse Ox 95% on R/A; jb4 21:30 BP 154 / 108; Pulse 111; Resp 27; Pulse Ox 95% on R/A; jb4 23:00 BP 171 / 105; Pulse 114; Resp 26; Pulse Ox 95% on R/A; jb4 15:36 Body Mass Index 26.15 (64.86 kg, 157.48 cm) ap3 MDM: 15:59 Patient medically screened. kb 19:17 Data reviewed: vital signs, nurses notes. Data interpreted: Pulse oximetry: on room air kb is 99 %. Interpretation: normal. Counseling: I had a detailed discussion with the patient and/or guardian regarding: the historical points, exam findings, and any diagnostic results supporting the discharge/admit diagnosis, lab results, radiology results, the need for further work-up and treatment in the hospital. Physician consultation: A Simin GARRIDO was contacted at 19:18, regarding admission, to the telemetry unit. in the emergency department to see patient at 19:18. 21:08 ED course: Pt becomes tachypneic and breathing becomes labored after ambulating. . kb 07/10 16:00 Order name: Basic Metabolic Panel; Complete Time: 16:51 kb 07/10 16:00 Order name: CBC with Diff; Complete Time: 16:28 kb 07/10 16:00 Order name: D-Dimer; Complete Time: 16:41 kb 07/10 16:00 Order name: LFT's; Complete Time: 16:51 kb 07/10 16:00 Order name: Magnesium; Complete Time: 16:51 kb 07/10 16:00 Order name: NT PRO-BNP; Complete Time: 16:51 kb 07/10 16:00 Order name: PT-INR; Complete Time: 16:41 kb 07/10 16:00 Order name: Troponin HS; Complete Time: 16:51 kb 07/10 16:00 Order name: XRAY Chest (1 view); Complete Time: 16:51 kb 07/10 16:00 Order name: EKG; Complete Time: 16:01 kb 07/10 16:00 Order name: COVID-19 SARS RT PCR (Document "Date of Onset" if Symptomatic); Complete kb Time: 17:11 07/10 16:00 Order name: Cardiac monitoring; Complete Time: 16:48 kb 07/10 16:00 Order name: EKG - Nurse/Tech; Complete Time: 16:34 kb 07/10 16:00 Order name: IV Saline Lock; Complete Time: 16:13 kb 07/10 16:00 Order name: Labs collected and sent; Complete Time: 16:13 kb 07/10 16:00 Order name: O2 Per Protocol; Complete Time: 16:34 kb 07/10 16:00 Order name: O2 Sat Monitoring; Complete Time: 16:34 kb 07/10 18:42 Order name: Vital Signs; Complete Time: 19:15 kb EC:06 Rate is 99 beats/min. Rhythm is irregularly irregular. QRS [place] is Normal. QRS interval kb is normal at 106 msec. QT interval is normal at 420 msec. Administered Medications: 17:00 Drug: NS 0.9% 500 ml Route: IV; Rate: bolus; Site: right antecubital; ll1 18:28 Follow up: IV Status: Completed infusion; IV Intake: 500ml kr3 19:37 Drug: Lasix (furosemide) 40 mg Route: IVP; Site: right antecubital; jb4 20:00 Follow up: Response: No adverse reaction; Marked relief of symptoms jb4 19:37 Drug: Tylenol 1000 mg Route: PO; jb4 20:00 Follow up: Response: No adverse reaction; Marked relief of symptoms; Pain is decreased jb4 Disposition Summary: 07/10/22 19:15 Hospitalization Ordered Hospitalization Status: Inpatient Admission kb Provider: Yvette Duval Location: Telemetry/[facility]Sur (Inpatient) kb Condition: Stable kb Problem: new kb Symptoms: are unchanged kb Bed/Room Type: Standard Room Assignment: 415(07/10/22 21:43) eb1 Diagnosis - Unspecified atrial fibrillation kb - Dyspnea kb Forms: - Medication Reconciliation Form kb - SBAR form kb Addendum: 07/12/2022 11:19 Co-signature as Attending Physician, Werner Gomez MD I agree with the assessment and [facility] plan of care. Signatures: Dispatcher [employer] EDMS Susan Alexander, JEWELRY INSPECTOR-C JEWELRY INSPECTOR-CkWerner Rankin MD MD kdr Danial Hernandez RN RN jb4 Ronda Bernal RN RN ap3 Dahlia Echevarria RN RN eb1 Alf Vidal, RN RN ll1 Meena Rodriguez RN kr3 Corrections: (The following items were deleted from the chart) 07/10 21:43 19:15 kb eb1
--- NOTE | 2022-07-10 19:16 | ER ---
Nurse's Notes [facility] Name: Juanita Mcghee Age: 87 yrs Sex: Female : 1935 Arrival Date: 07/10/2022 Time: 15:31 Bed 5 Private MD: Diagnosis: Unspecified atrial fibrillation;Dyspnea Presentation: 07/10 15:36 Chief complaint: Patient states: she started feeling like she would get short of breath ap3 in her sleep last night, and the patient states the feeling hasn't improved. Patient reports the feeling woke her up in her sleep. Coronavirus screen: At this time, the client does not indicate any symptoms associated with coronavirus-19. Ebola Screen: No symptoms or risks identified at this time. Initial Sepsis Screen:. Risk Assessment: Do you want to hurt yourself or someone else? Patient reports no desire to harm self or others. Onset of symptoms was July 09, 2022. 15:36 Method Of Arrival: Ambulatory ap3 15:40 Acuity: JANNETTE 3 ap3 15:41 Initial Sepsis Screen: Does the patient meet any 2 criteria? HR > 90 bpm. Does the ap3 patient have a suspected source of infection? No. Patient's initial sepsis screen is negative. Triage Assessment: 15:39 General: Appears in no apparent distress. Behavior is calm, cooperative, appropriate ap3 for age. Pain: Denies pain. Neuro: Level of Consciousness is awake, alert, obeys commands, Oriented to person, place, time, situation. Cardiovascular: Patient's skin is warm and dry. Respiratory: Reports shortness of breath Airway is patent Respiratory effort is even, unlabored, Respiratory pattern is regular, symmetrical, Onset: The symptoms/episode began/occurred yesterday, the patient has mild shortness of breath. Historical: - Allergies: 15:39 No Known Allergies; ap3 - PMHx: 15:39 Anxiety; Atrial Fib; Hypertension; neuropathy; ap3 - PSHx: 15:39 hysterectomy; ap3 - Immunization history:: Client reports receiving the 2nd dose of the Covid vaccine. - Social history:: Smoking status: Patient denies any tobacco usage or history of. Screenin:40 Abuse screen: Denies threats or abuse. Nutritional screening: No deficits noted. ap3 Tuberculosis screening: No symptoms or risk factors identified. 16:29 Fall Risk IV access (20 points). Ambulatory Aid- Crutches/Cane/Walker (15 pts). Gait- ll1 Impaired (20 pts.). Total Krishna Fall Scale indicates High Risk Score (45 or more points). Fall prevention measures have been instituted. Side Rails Up X 2 Placed Close to Nursing Station Frequent Obs/Assessments Occuring Family Present and informed to notify staff if the need to leave the bedside As available patient and family educated on Fall Prevention Program and Strategies. Assessment: 16:29 Respiratory: Airway is patent ll1 17:30 Reassessment: No changes from previously documented assessment. Patient and/or family kr3 updated on plan of care and expected duration. Pain level reassessed. 18:30 Reassessment: No changes from previously documented assessment. Patient and/or family kr3 updated on plan of care and expected duration. Pain level reassessed. Patient is alert, oriented x 3, equal unlabored respirations, skin warm/dry/pink. 18:32 Cardiovascular: Rhythm is atrial fibrillation with rapid ventricular response. kr3 19:15 Reassessment: Pt is awake and alert x4. Does not appear to be in any distress, no pain jb4 reported. Respiratory: Airway is patent Respiratory effort is even, unlabored, Respiratory pattern is regular, tachypnea. 20:00 Reassessment: Patient appears in no apparent distress at this time. No changes from jb4 previously documented assessment. 21:00 Reassessment: Patient appears in no apparent distress at this time. Patient and/or jb4 family updated on plan of care and expected duration. Pain level reassessed. Patient is alert, oriented x 3, equal unlabored respirations, skin warm/dry/pink. 21:48 Reassessment: Patient appears in no apparent distress at this time. Patient and/or jb4 family updated on plan of care and expected duration. Pain level reassessed. Patient is alert, oriented x 3, equal unlabored respirations, skin warm/dry/pink. attempted to call report, no nurse assigned. 23:00 Reassessment: Patient appears in no apparent distress at this time. Patient and/or jb4 family updated on plan of care and expected duration. Pain level reassessed. Patient is alert, oriented x 3, equal unlabored respirations, skin warm/dry/pink. Vital Signs: 15:36 Pulse 117; Resp 17; Temp 98.3; Pulse Ox 96% ; Weight 64.86 kg; Height 5 ft. 2 in. ap3 (157.48 cm); 15:40 BP 164 / 103; ap3 16:48 BP 152 / 116; Pulse 115; ll1 18:28 BP 160 / 107; Pulse 107; Resp 18; Pulse Ox 98% on R/A; kr3 18:33 BP 162 / 103; Pulse 103; Resp 18; Pulse Ox 99% on R/A; kr3 19:00 BP 150 / 104; Pulse 115; Resp 22; Pulse Ox 100% on R/A; jb4 20:00 BP 115 / 116; Pulse 111; Resp 26; Pulse Ox 95% on R/A; jb4 21:30 BP 154 / 108; Pulse 111; Resp 27; Pulse Ox 95% on R/A; jb4 23:00 BP 171 / 105; Pulse 114; Resp 26; Pulse Ox 95% on R/A; jb4 15:36 Body Mass Index 26.15 (64.86 kg, 157.48 cm) ap3 ED Course: 15:31 Patient arrived in ED. as 15:40 Arm band placed on right wrist. ap3 15:41 Triage completed. ap3 15:51 Susan Alexander FNP-C [facility] kb 15:51 Werner Gomez MD is Attending Physician. kb 16:02 COVID swab sent to lab. ap3 16:13 Basic Metabolic Panel Sent. mb7 16:13 CBC with Diff Sent. mb7 16:13 D-Dimer Sent. mb7 16:13 LFT's Sent. mb7 16:14 Magnesium Sent. mb7 16:14 Troponin HS Sent. mb7 16:14 PT-INR Sent. mb7 16:14 NT PRO-BNP Sent. mb7 16:14 Inserted saline lock: 20 gauge in right antecubital area, using aseptic technique. mb7 Blood collected. 16:29 Patient placed in an exam room, on a stretcher. ll1 16:29 Patient has correct armband on for positive identification. Bed in low position. Call ll1 light in reach. Side rails up X 1. Client placed on continuous cardiac and pulse oximetry monitoring. NIBP monitoring applied. associate professor of economics on. 16:29 No provider procedures requiring assistance completed. ll1 16:34 Alf Vidal, RN is Primary Nurse. ll1 16:44 XRAY Chest (1 view) In Process Unspecified. EDMS 17:06 Meena Rodriguez, LANI is Primary Nurse. kr3 19:14 Yvette Duval MD is Hospitalizing Provider. kb 23:12 Patient admitted, IV remains in place. jb4 Administered Medications: 17:00 Drug: NS 0.9% 500 ml Route: IV; Rate: bolus; Site: right antecubital; ll1 18:28 Follow up: IV Status: Completed infusion; IV Intake: 500ml kr3 19:37 Drug: Lasix (furosemide) 40 mg Route: IVP; Site: right antecubital; jb4 20:00 Follow up: Response: No adverse reaction; Marked relief of symptoms jb4 19:37 Drug: Tylenol 1000 mg Route: PO; jb4 20:00 Follow up: Response: No adverse reaction; Marked relief of symptoms; Pain is decreased jb4 Medication: 16:29 VIS not applicable for this client. ll1 Intake: 18:28 IV: 500ml; Total: 500ml. kr3 Outcome: 19:15 Decision to Hospitalize by Provider. kb 23:11 Discharged to home ambulatory. jb4 23:11 Condition: stable 23:11 Discharge instructions given to patient, family, Instructed on the need for admit, Demonstrated understanding of instructions. 23:12 Patient left the ED. jb4 Signatures: Dispatcher [employer] EDMS Susan Alexander, BRANCH LIBRARY CLERK-C BRANCH LIBRARY CLERK-CkAnn Okeefe James, RN RN jb4 Ronda Bernal RN RN ap3 Alf Vidal RN RN [facility] Araseli Monroy mb7 Meena Rodriguez RN RN kr3 Corrections: (The following items were deleted from the chart) 18:32 18:31 Cardiovascular: kr3 kr3 18:48 18:33 BP 141 / 125; Pulse 103bpm; Resp 18bpm; Pulse Ox 99% RA; kr3 kr3 21:58 21:48 Reassessment: Patient appears in no apparent distress at this time. Patient jb4 and/or family updated on plan of care and expected duration. Pain level reassessed. Patient is alert, oriented x 3, equal unlabored respirations, skin warm/dry/pink. jb4
[2022-07-10] MEDS ORDERED: ACETAMINOPHEN 500 MG TAB ONE (19:32)
[2022-07-10] MEDS ORDERED: FUROSEMIDE 40 MG/4 ML VIAL ONE (19:33)
[2022-07-10 23:35] VITALS: BMI 27.2
[2022-07-11 03:44] LABS: Absolute Lymphocytes (CBC) 1.7 K/uL (0.7-4.9); Hematocrit 33.2 % (36.0-45.0); Lymphocytes % 22.8 % (15.3-44.8); MCV 92.9 fL (80-100); RBC Red Blood Cell Count 3.57 M/uL (3.86-4.86)
[2022-07-11 04:03] LABS: Potassium 3.4 mmol/L (3.5-5.1)
[2022-07-11 09:00] VITALS: O2SAT 96
[2022-07-11] MEDS ORDERED: METOPROLOL XL 25 MG TAB PO SCH (09:00)
[2022-07-11] MEDS ORDERED: OXYBUTYNIN ER 5 MG TAB PO SCH (09:00)
[2022-07-11] MEDS ORDERED: DULOXETINE 30 MG CAP PO SCH (09:00)
[2022-07-11] MEDS ORDERED: MAGNESIUM OXIDE 400 MG TAB PO SCH (09:00)
[2022-07-11] MEDS ORDERED: POTASSIUM CL SA 10 MEQ TAB PO SCH (09:00)
[2022-07-11] MEDS ORDERED: HYDRALAZINE HCL 10 MG TABLET PO SCH (09:00)
[2022-07-11] MEDS ORDERED: LOSARTAN POTASSIUM 50 MG TABLET PO SCH (09:00)
[2022-07-11] MEDS ORDERED: SOTALOL HCL 80 MG TAB PO SCH (09:00)
[2022-07-11] MEDS ORDERED: clonazePAM 0.5 MG TAB PO SCH (09:00)
--- NOTE | 2022-07-11 09:23 | HP ---
Date of Admission: 07/10/2022 Chief Complaint: Shortness of breath. History Of Present Illness: This is an -vpxv-etn pleasant female patient, came into emerge ncy room after she called the office with complaints of shortness of breath. The patient has 2-3 day s history of shortness of breath with activity and also shortness of breath at nighttime that she has to wake up from her sleep of this trouble breathing. No chest pain. No fever or chills. After she came into ER, she was evaluated and admitted to the hospital with this congestive heart failure prob sandra. Allergies: NO KNOWN ALLERGIES. Medications: Clonazepam 0.5 mg daily in the morning, duloxetine 60 mg p.o. daily in morning with moe akfast, gabapentin 100 mg 3 times a day, hydralazine 10 mg 2 times a day, hydrochlorothiazide 12.5 mg daily, losartan 100 mg daily, magnesium oxide 400 mg 2 times a day, oxybutynin 10 mg 2 tablets in th e morning and 1 tablet in the evening, potassium chloride 20 mEq daily, Xarelto 20 mg daily with even ing meal, sotalol 80 mg 2 times a day, metoprolol 25 mg 2 times a day, Caltrate plus D 1 tablet 2 brenden es a day. Review of Systems: Respiratory: As mentioned above. Cardiovascular: As mentioned above. All other systems reviewed and negative. Past Medical History: Significant for hypertension, hyperlipidemia, paroxysmal atrial fibrillation, overactive bladder, kidney mass, anxiety, depression, osteopenia. Past Surgical History: Tubal ligation, hysterectomy, elbow surgery. Family History: Father , had colon cancer. Mother with cancer of unknown type. Brother di ed with prostate cancer and sister with COPD and breast cancer. Social History: Negative for smoking and alcohol use. Physical Examination: Vital Signs: Temperature 97.8, pulse 128, respiratory rate 15, blood pressure 123/77, oxygen saturat ion 94% on room air. Height 5 feet 2 inches, weight 143 pounds. General: Awake, alert, oriented, not in distress. HEENT: Head atraumatic, normocephalic. Conjunctivae nonerythematous. Sclerae white. Mouth, no thr ush or edema noted. Ears/Nose, no mass, lesion, discharge noted. Neck: Supple. No JVD, lymph nodes, bruit, thyromegaly noted. Lungs: Presence of rales noted in lower 1/3 of both lung osullivan. Not using any accessory muscles of respiration at rest. Heart: Normal heart sounds, no murmur or gallop. Abdomen: Soft, bowel sounds normal. No guarding, rigidity, tenderness, mass, hepatosplenomegaly, dis tention, or bruit noted. Extremities: No leg edema. No calf tenderness. Skin: No rash, ulcer, cellulitis. Lymphatics: No lymph node enlargement in neck, supraclavicular, infraclavicular region. Neuro: No focal neurological deficit. Chest: Unremarkable. External Genitalia: Deferred. Rectal: Deferred. Laboratory Data: White count 9.7, hemoglobin 11.9, platelets 284. Sodium 127, potassium 3.6, chlori de 92, bicarb 27, BUN 13, creatinine 0.68, glucose 121. ProBNP 4593. Troponin 14.9. COVID-19 test negative. Chest x-ray was reported as no acute changes. Liver function tests unremarkable except to tammy bilirubin 1.6. Impression: 1.Congestive heart failure. 2.Paroxysmal atrial fibrillation. 3.Hyponatremia. 4.Anemia, unspecified. 5.Hypertension. 6.Hyperlipidemia. 7.Overactive bladder. 8.Anxiety. 9.Depression. Plan: We will admit the patient to hospital for further evaluation and management of this problem. The patient is appropriate for inpatient and is expected to spend 2 midnights in hospital. We will c onsult Cardiology, start Lasix 40 mg IV every 12 hours. We will continue home medications per order for her hypertension problem and for her atrial fibrillation. Continue sotalol, continue Xarelto. W e will get echo with Doppler tomorrow and monitor electrolytes, renal function. Hyponatremia will no t require any further intervention at this time, appears to be dilutional due to congestive heart fidencio lure, and we will monitor electrolytes and renal function. Details and plan of treatment discussed w lynnette the patient and her daughter, who was present with her at bedside. CITLALY/MODL Voice ID: [id number]
[2022-07-11] MEDS: GABAPENTIN 100 MG CAP PO SCH ×2 (09:58→16:24)
[2022-07-11] MEDS: FUROSEMIDE 40 MG/4 ML VIAL IV SCH ×2 (10:02→16:23)
--- NOTE | 2022-07-11 11:11 | CON ---
Date of Consultation: 07/11/2022 Reason For Consultation: Congestive heart failure. History Of Present Illness: Ms. Mcghee is 87. Has a history of hypertension, atrial fibrillation, anxiety, and neuropathy. Came in with CHF. Last echocardiogram was 2018. Her chest x-ray was negat kelle. Her BNP is 4015, sodium was 129. Complained of PND, orthopnea, and pedal edema. Denied any ch est pain or syncope. Denied palpitation. Denied any nausea or vomiting or diaphoresis. Past Medical History: Negative. Allergies: NONE. Review of Systems: Negative. Social History: Negative. Family History: Noncontributory. Medications: Listed by Dr. Duval. Physical Examination: General: She was stable. Vital Signs: Stable, afebrile, sinus rhythm. No acute distress. Feels better. HEENT: Negative. Neck: Supple with no bruit. Chest: Clear to auscultation and percussion. Cardiac: Revealed a regular rhythm and rate with S4 gallops. No murmurs or rubs. Abdomen: Benign. Extremities: Revealed 1+ edema. Skin: Dry and intact. Neurologic: She was nonfocal. Impression And Plan: 1.Acute on chronic diastolic congestive heart failure. 2.Atrial fibrillation, paroxysmal. 3.Hypertension. 4.Neuropathy. 5.Anxiety. 6.Low sodium and elevated BNP secondary to congestive heart failure. Chest x-ray is negative. I re commend she goes home on her home medication including Lasix, diurese her gently, send her home today . I will see her in the office soon. LINSEY/KANE Voice ID: [id number] Report ID: [id number]
--- NOTE | 2022-07-11 15:13 | EKG ---
Test Date: 2022-07-10 Test Time: 16:40:12 Extrusion Die Template Maker: LML MEASUREMENT RESULTS: Intervals: Rate: 99 NC: QRSD: 106 QT: 328 QTc: 420 [place]: P: NC: QRS: -28 T: -16 INTERPRETIVE STATEMENTS: Atrial fibrillation with premature ventricular or aberrantly conducted complexes Incomplete left bundle branch block Nonspecific ST and T wave abnormality Abnormal ECG Compared to ECG 08/03/2021 21:05:49 Ventricular premature complex(es) now present Atrial flutter no longer present Left ventricular hypertrophy no longer present ST (T wave) deviation still present Electronically Signed On 07-11-22 15:11:44 CDT by Justus Singh
[2022-07-11] MEDS ORDERED: RIVAROXABAN 20 MG TABLET PO SCH (17:00)
[2022-07-11 17:23] VITALS: BP 135/82; TEMP 97.1
[2022-07-11] MEDS ORDERED: OXYBUTYNIN CHLORIDE 5 MG TAB PO SCH (21:00)
--- NOTE | 2022-07-12 03:49 | DS ---
Date of Discharge: 07/11/2022 Disposition: Discharged to go home. Physical Examination: HEENT: Unremarkable. Lungs: Clear to auscultation. Heart: Sounds normal. Abdomen: Soft. Bowel sounds normal. No guarding, rigidity, tenderness, or distention. Extremities: No leg edema. Discharge Medications And Instructions: 1.Continue all prior home medication except stop hydrochlorothiazide. 2.Start furosemide 40 mg 2 times a day. 3.Start potassium chloride 20 mEq 2 times a day. 4.Follow up at my office next week. Final Diagnoses: 1.Congestive heart failure, chronic, diastolic, with acute exacerbation. 2.Hypertension. 3.Hyperlipidemia. 4.Paroxysmal atrial fibrillation. 5.Anxiety. 6.Depression. Hospital Course: This is an 87-year-old female patient admitted to the hospital with complaints of s hortness of breath. Please see dictated H and P for more information. The patient came into emergen cy room yesterday and after she was evaluated, she was admitted to the hospital. Cardiology consulta tion was requested from Dr. Wang. Home medications were continued and the patient was started on IV Lasix 40 mg once a day. Echocardiogram was done today, result pending, and I did discuss details with Dr. Wang, who has suggested for the patient to follow up with him on outpatient basis in 2-3 weeks. From Cardiology point of view, the patient can go home. Medically, patient is stable for dis charge today. CITLALY/MODL Voice ID: [id number] Report ID: [id number]
--- NOTE | 2022-07-12 10:28 | ECHO ---
HEIGHT: 5 ft 2 in WEIGHT: 143 lb 0 oz DATE OF STUDY: 07/11/[address]: Reji Wang MD 2-DIMENSIONAL: YES M.MODE: YES DOPPLER: YES COLOR FLOW: YES TDS: NO PORTABLE: YES DEFINITY: NO BUBBLE STUDY: NO DIAGNOSIS: CONGESTIVE HEART FAILURE CARDIAC HISTORY: CATHERIZATION: NO SURGERY: NO PROSTHETIC VALVE: NO PACEMAKER: NO MEASUREMENTS (cm) DIASTOLIC (NORMALS) SYSTOLIC (NORMALS) IVSd 1.0 (0.6-1.2) LA Diam 2.5 (1.9-4.0) LVEF 40-50% LVIDd 3.5 (3.5-5.7) LVIDs 2.8 (2.0-3.5) %FS 19% LVPWd 1.1 (0.6-1.2) Ao Diam 2.9 (2.0-3.7) 2 DIMENSIONAL ASSESSMENT: RIGHT ATRIUM: NORMAL LEFT ATRIUM: NORMAL RIGHT VENTRICLE: NORMAL LEFT VENTRICLE: TRICUSPID VALVE: MITRAL VALVE: PULMONIC VALVE: NORMAL AORTIC VALVE: NORMAL PERICARDIAL EFFUSION: SMALL AORTIC ROOT: NORMAL LEFT VENTRICULAR WALL MOTION: MILD GLOBAL HYPOKINESIS. DOPPLER/COLOR FLOW: SEE BELOW COMMENTS: MILDLY DEPRESSED LEFT VENTRICULAR EJECTION FRACTION 40-50%, LIKELY ATRIAL FIBRILLATION INDUCED. MILD MITRAL AND TRICUSPID REGURGITATION. RIGHT VENTRICULAR SYSTOLIC PRESSURE 45-50 mmHg. MODERATE PULMONARY HYPERTENSION. SMALL PERICARDIAL EFFUSION. TECHNOLOGIST: Dean MCNEAL
== END 2022-07-11 18:30 | disposition home or self-care (01) ==
LOC: ER 15:30 → INTOOBSV 19:27 → ERHOLD 19:27 → 4TH 22:59
PROVIDERS: ADMIT Internal Medicine; ATTEND Internal Medicine
DX: I11.0 Hypertensive heart disease with heart failure (principal); I50.33 Acute on chronic diastolic (congestive) heart failure; I48.0 Paroxysmal atrial fibrillation; E87.1 Hypo-osmolality and hyponatremia; E78.5 Hyperlipidemia, unspecified; G62.9 Polyneuropathy, unspecified; D64.9 Anemia, unspecified; F41.9 Anxiety disorder, unspecified; F32.A Depression, unspecified; N32.81 Overactive bladder; M85.80 Other specified disorders of bone density and structure, unspecified site; N28.9 Disorder of kidney and ureter, unspecified; Z79.01 Long term (current) use of anticoagulants; Z79.899 Other long term (current) drug therapy; Z90.710 Acquired absence of both cervix and uterus; Z20.822 Contact with and (suspected) exposure to COVID-19; Z80.0 Family history of malignant neoplasm of digestive organs; Z80.42 Family history of malignant neoplasm of prostate; Z80.3 Family history of malignant neoplasm of breast; Z82.5 Family history of asthma and other chronic lower respiratory diseases
CPT/HCPCS: 96361; 93005; 93306; 85025 ×2; 80048 ×2; 36415; 83735; 85610; 85379; 80076; 84484; 83880 ×2; 71045; 96374; 99284; U0003; J1940 ×4; J7040; G0378 ×2